=== PATIENT | male | born 1950 | race Caucasian/White ===

== ENCOUNTER 2017-11-09 11:13 | Emergency (ER) | payer MEDICARE, MEDICAID ==
[~2017-11-09] VITALS: Ht 185.4 cm; Wt 90.0 kg
[2017-11-09 11:18] VITALS: BP 102/55
[2017-11-09] MEDS ORDERED: IBUP-1984 PO (12:30)
== END 2017-11-09 12:36 | disposition home or self-care (01) ==
LOC: ER 11:14
DX: M25.512 Pain in left shoulder (principal)
CPT/HCPCS: 73000; 99284; A4565

== ENCOUNTER 2021-06-08 15:33 | Emergency (ER) | payer MEDICARE, MEDICAID ==
[~2021-06-08] VITALS: Ht 182.9 cm; Wt 75.0 kg
[2021-06-08 16:20] VITALS: BP 92/62
[2021-06-08] MEDS ORDERED: HYDROcodone/acetaminophen 10/325mg tab PO ONE (16:25)
[2021-06-08 17:02] LABS: BASOPHILS # (AUTO) 0.1 X10'3 (0-0.2); EOSINOPHILS # (AUTO) 0.2 X10'3 (0-0.9); EOSINOPHILS % (AUTO) 1.1 % (0-6); HEMOGLOBIN 12.3 g/dl (14.0-17.9); MONOCYTES # (AUTO) 1.7 X10'3 (0-0.9); RED CELL DISTRIBUTION WIDTH 14.7 % (11.5-14.5)
[2021-06-08 17:04] LABS: BASOPHILS % (AUTO) 0.4 % (0-1); LYMPHOCYTES # (AUTO) 2.1 X10'3 (1.1-4.8); LYMPHOCYTES % (AUTO) 12.3 % (21-51); MEAN CORPUSCULAR HEMOGLOBIN 29.9 PG (27.0-31.0); MEAN CORPUSCULAR HGB CONC 33.2 g/dL (33.0-36.5); MEAN CORPUSCULAR VOLUME 90.1 FL (78-98); MEAN PLATELET VOLUME 6.8 FL (7.4-10.4); MONOCYTES % (AUTO) 10.1 % (2-12); NEUTROPHILS # (AUTO) 12.9 X10'3 (1.8-7.7); NEUTROPHILS % (AUTO) 76.1 % (42-75); PLATELET COUNT 571 X10'3 (140-440); RED BLOOD COUNT 4.11 X10'6 (4.70-6.10); WHITE BLOOD COUNT 16.9 X10'3 (4.5-11.0)
[2021-06-08 17:12] LABS: ALANINE AMINOTRANSFERASE 53 U/L (12-78); ALBUMIN 3.4 G/DL (3.4-5.0); ALBUMIN/GLOBULIN RATIO 0.7 (1.1-1.5); ALKALINE PHOSPHATASE 97 IU/L (46-116); ANION GAP 14 (8-16); ASPARTATE AMINO TRANSFERASE 17 U/L (10-37); BILIRUBIN,TOTAL 0.3 MG/DL (0.1-1.0); BLOOD UREA NITROGEN 16 MG/DL (7-18); BUN/CREATININE RATIO 11.3 (5.4-32.0); CALCIUM 9.5 MG/DL (8.5-10.1); CHLORIDE 97 MMOL/L (99-107); CREATININE 1.42 MG/DL (0.60-1.10); GLUCOSE 118 MG/DL (70-104); POTASSIUM 3.9 MMOL/L (3.5-5.1); SODIUM 135 MMOL/L (135-145); TOTAL CARBON DIOXIDE 23.8 MMOL/L (24-32); eGFR 49 ML/MIN
[2021-06-08] MEDS ORDERED: cefepime 2g/NS 100ml ADVANTAGE 100 ML IV STA (17:27)
[2021-06-08] MEDS ORDERED: normal saline 1000ML IV soln IV ONE (17:30)
[2021-06-08] MEDS ORDERED: vancomycin/NS 1 GM ADD-VANTAGE 250 ML IV ONE (17:30)
--- NOTE | 2021-06-08 17:38 | NUR ---
PHONE CALL TO PATIENT WHO LEFT LOBBY WITHOUT BEING SEEN.
== END 2021-06-08 17:41 | disposition left against medical advice (07) ==
LOC: ER 15:33
DX: S89.92XA Unspecified injury of left lower leg, initial encounter (principal); A41.9 Sepsis, unspecified organism; Z88.0 Allergy status to penicillin; X58.XXXA Exposure to other specified factors, initial encounter; Y93.89 Activity, other specified; Y92.89 Other specified places as the place of occurrence of the external cause; Y99.8 Other external cause status
CPT/HCPCS: 36415; 80053; 83605; 84145; 85025; 85651; 86140; 87040; 93005; 99284

== ENCOUNTER 2021-07-10 14:05 | Inpatient (IN) | payer BC, MEDICAID ==
[~2021-07-10] VITALS: Ht 182.9 cm; Wt 88.6 kg
[2021-07-10] MEDS ORDERED: normal saline 1000ML IV soln IVB ONE ×3 (14:15→18:20)
[2021-07-10] MEDS ORDERED: diltiazem 5mg/ml 5ml inj. IV ONE ×2 (14:25→15:50)
--- NOTE | 2021-07-10 14:30 | NUR ---
non-behavioral restraints place on pt bilat wrists. dr. garcias aware. additional order for 5mg IM ordered.
--- NOTE | 2021-07-10 14:30 | NUR ---
pt re-oriented to ed multiple times, pt pulling at iv lines/monitor cords and revealing genitalia repeatedly. pt straight cath'd with help of multiple techs and RN. second IV placed. verbal order received for non-behavioral restraints.
[2021-07-10 14:32] LABS: BASOPHILS # (AUTO) 0.1 X10'3 (0-0.2); BASOPHILS % (AUTO) 0.6 % (0-1); EOSINOPHILS # (AUTO) 0.2 X10'3 (0-0.9); EOSINOPHILS % (AUTO) 1.3 % (0-6); HEMATOCRIT 33.5 % (42.0-52.0); HEMOGLOBIN 10.9 g/dl (14.0-17.9); LYMPHOCYTES # (AUTO) 1.9 X10'3 (1.1-4.8); LYMPHOCYTES % (AUTO) 12.4 % (21-51); MEAN CORPUSCULAR HGB CONC 32.4 g/dL (33.0-36.5); MEAN CORPUSCULAR VOLUME 89.4 FL (78-98); MEAN PLATELET VOLUME 7.7 FL (7.4-10.4); MONOCYTES # (AUTO) 1.1 X10'3 (0-0.9); MONOCYTES % (AUTO) 7.2 % (2-12); NEUTROPHILS # (AUTO) 11.9 X10'3 (1.8-7.7); NEUTROPHILS % (AUTO) 78.5 % (42-75); PLATELET COUNT 267 X10'3 (140-440); RED BLOOD COUNT 3.75 X10'6 (4.70-6.10); RED CELL DISTRIBUTION WIDTH 14.9 % (11.5-14.5); WHITE BLOOD COUNT 15.2 X10'3 (4.5-11.0)
[2021-07-10] MEDS ORDERED: haloperidol lactate 5mg/ml inj IM ONE ×2 (14:45→19:30)
[2021-07-10 14:47] LABS: ALANINE AMINOTRANSFERASE 13 U/L (12-78); ALBUMIN 3.2 G/DL (3.4-5.0); ALKALINE PHOSPHATASE 106 IU/L (46-116); ANION GAP 15 (8-16); ASPARTATE AMINO TRANSFERASE 16 U/L (10-37); BILIRUBIN,TOTAL 0.3 MG/DL (0.1-1.0); BLOOD UREA NITROGEN 14 MG/DL (7-18); BUN/CREATININE RATIO 16.1 (5.4-32.0); CALCIUM 8.8 MG/DL (8.5-10.1); CHLORIDE 105 MMOL/L (99-107); CREATININE 0.87 MG/DL (0.60-1.10); GLUCOSE 89 MG/DL (70-104); POTASSIUM 3.5 MMOL/L (3.5-5.1); SODIUM 145 MMOL/L (135-145); TOTAL CARBON DIOXIDE 24.6 MMOL/L (24-32); TOTAL PROTEIN 6.5 G/DL (6.4-8.2); eGFR 87 ML/MIN
[2021-07-10 14:55] LABS: ETHANOL < 0.010 GM/DL (0.0-0.010)
[2021-07-10] MEDS: diltiazem-NS 100mg/100ml 100 ML IV SCH ×2 (14:59→21:17)
[2021-07-10 15:15] LABS: CLARITY,URINE CLEAR (Clear); COLOR,URINE YELLOW (Yellow); GLUCOSE, URINE NEGATIVE (Neg); KETONES,URINE TRACE mg/dl (Neg); LEUKOCYTE ESTERASE ,URINE NEGATIVE (Neg); NITRITES, URINE NEGATIVE (Neg); OCCULT BLOOD,URINE NEGATIVE (Neg); PROTEIN,URINE NEGATIVE (Neg); UROBILINOGEN,URINE 0.2 E.U/dL (0.2-1.0)
[2021-07-10 15:21] LABS: UA COLLECTION TYPE STRAIGHT CATH
[2021-07-10 15:41] LABS: URINE AMPHETAMINE SCREEN NEGATIVE (Neg); URINE BARBITUATE SCREEN POSITIVE (Neg); URINE BENZODIAZEPINES SCREEN NEGATIVE (Neg); URINE CANNABINOID SCREEN POSITIVE (Neg); URINE COCAINE SCREEN NEGATIVE (Neg); URINE METHADONE SCREEN NEGATIVE (Neg); URINE OPIATE SCREEN NEGATIVE (Neg); URINE PHENCYCLIDINE SCREEN NEGATIVE (Neg)
[2021-07-10] MEDS ORDERED: azithromycin/NS 500mg/250ml 250 ML IV STA (16:04)
[2021-07-10] MEDS ORDERED: CefTRIAXone 2gm/D5W 50ml BAG 50 ML IV ONE (16:05)
--- NOTE | 2021-07-10 16:05 | NUR ---
pt had large bm in bed, complete linen change provided. pt tolerated turn well. r foream piv self removed during cleaning, cath fully intact. second piv placed in right forearm.
[2021-07-10] MEDS ORDERED: levoFLOXACIN-Levaquin 500mg/D5 100 ML IV ONE (16:20)
[2021-07-10 16:24] LABS: D-DIMER 0.95 MG/L FEU (0-0.50)
[2021-07-10] MEDS ORDERED: phenobarbital inj 500 MG in normal saline 250ml IV soln 250 ML IV ONE (17:05)
[2021-07-10] MEDS ORDERED: enoxaparin 100mg/ml syringe SUBCUT ONE (17:45)
[2021-07-10] MEDS ORDERED: magnesium 2GM in 50ml NS 50 ML IV ONE (17:50)
[2021-07-10 18:12] LABS: MAGNESIUM 1.2 MG/DL (1.5-2.4); VALPROATE 60 UG/ML (50-100)
--- NOTE | 2021-07-10 19:10 | NUR ---
PT TO CT @[id number].
--- NOTE | 2021-07-10 19:13 | NUR ---
PT WAS UNABLE TO OBTAIN CT R/T BEING TOO AWAKE AND UNCOOPERATIVE. CT WILL TRY AGAIN LATER TONIGHT.
--- NOTE | 2021-07-10 19:40 | NUR ---
PT PHENOBARBITOL RAN OUT, CONSULTED WITH DR. TAVERAS REGARDING PT STILL NOT RELAXED. PT UNABLE TO FOLLOW COMMANDS AND STILL NEEDS CT SCAN PERFORMED. DR. TAVERAS TO ORDER HALDOL 10MG IM.
--- NOTE | 2021-07-10 20:02 | NUR ---
PT CLEANED UP AND CLEAN BREAF APPLIED, REPOSITIONED, TWO POINT RESTRAINTS CHECKED, CSM INTACT, WARM BLANKETS GIVEN
[2021-07-10] MEDS ORDERED: diphenhydrAMINE 50 mg/ml inj IV ONE (20:20)
[2021-07-10] MEDS ORDERED: magnesium Cl slow-release 64mg tablet PO PRN (20:50)
[2021-07-10] MEDS ORDERED: ondansetron/PF 4mg/2ml inj IV PRN (20:50)
[2021-07-10] MEDS ORDERED: potassium Cl 20 mEq SR tablet PO PRN (20:50)
[2021-07-10] MEDS ORDERED: magnesium hydroxide 30ml (MOM) UD suspension PO PRN (20:50)
[2021-07-10] MEDS ORDERED: magnesium 4gm in 100ml NS 100 ML IV PRN (20:50)
[2021-07-10] MEDS ORDERED: mag hydrox/Alum hydrox/simeth 30ml oral suspension PO PRN (20:50)
[2021-07-10] MEDS ORDERED: potassium CL 10mEq/100ml bag 100 ML IV PRN (20:50)
[2021-07-10] MEDS ORDERED: magnesium 2GM in 50ml NS 50 ML IV PRN (20:50)
[2021-07-10] MEDS ORDERED: acetaminophen 325mg tablet PO PRN ×2 (20:50)
[2021-07-10] MEDS ORDERED: temazepam 15mg capsule PO PRN (21:00)
--- NOTE | 2021-07-10 21:08 | NUR ---
pt to ct and able to get completed
[2021-07-10] MEDS: normal saline 1000ml 1,000 ML IV SCH (21:12)
[2021-07-10] MEDS ORDERED: primidone 50mg tablet PO SCH (21:15)
--- NOTE | 2021-07-10 21:28 | NUR ---
pt found to be in sinus rythm. dr kennedy dc'd daniella
--- NOTE | 2021-07-10 21:30 | NUR ---
DR. SILVA VERBALIZED OKAY TO HERN[facility]N CISNEROS AT THIS TIME
[2021-07-10] MEDS ORDERED: iohexol 350MG/ML 100ml bottle IV ONE (22:11)
[2021-07-10] MEDS ORDERED: PANT40TA54 PO (22:16)
[2021-07-10] MEDS ORDERED: IRON150C8 PO (22:16)
[2021-07-10] MEDS ORDERED: HYDR-3964 PO (22:16)
[2021-07-10] MEDS ORDERED: ROSU10TA28 PO (22:16)
[2021-07-10] MEDS ORDERED: SENN-263 PO (22:16)
[2021-07-10] MEDS ORDERED: DIVA-51 PO (22:16)
[2021-07-10] MEDS ORDERED: DOCU250C34 PO (22:16)
[2021-07-10] MEDS ORDERED: ASPI-1397 PO (22:16)
[2021-07-10] MEDS ORDERED: PRIM50TA5 PO (22:16)
[2021-07-10] MEDS ORDERED: GABA-530 PO (22:16)
[2021-07-10] MEDS ORDERED: THIA100T66 PO (22:16)
[2021-07-10] MEDS ORDERED: COLL30OI TOP (22:16)
[2021-07-10] MEDS ORDERED: ZINC50TA15 PO (22:16)
[2021-07-10] MEDS ORDERED: ASCO500T20 PO (22:16)
[2021-07-10] MEDS ORDERED: BACL10TA2 PO (22:16)
[2021-07-10] MEDS ORDERED: FLO0.4C PO (22:17)
[2021-07-10] MEDS ORDERED: METO25TA6 PO (22:17)
[2021-07-10] MEDS ORDERED: QUET25TA36 PO (22:17)
[2021-07-10] MEDS ORDERED: FOLI0.4T14 PO (22:17)
[2021-07-10] MEDS ORDERED: CHOL100017 PO (22:17)
[2021-07-10] MEDS: divalproex 250mg tablet, delayed-release PO SCH (23:07)
[2021-07-10] MEDS: gabapentin 100mg capsule PO SCH (23:08)
[2021-07-10] MEDS: folic acid 1mg tablet PO SCH (23:08)
[2021-07-10] MEDS: QUEtiapine 25mg tablet PO SCH (23:09)
[2021-07-10] MEDS ORDERED: haloperidol decanoate***LONG-ACTING*** 100mg/ml **IM only** inj. IM ONE (23:15)
[2021-07-10] MEDS ORDERED: morphine 2 MG/ML inj. syringe IV PRN (23:20)
[2021-07-10] MEDS: morphine 2 MG/ML inj. syringe IV PRN (23:52)
--- NOTE | 2021-07-11 00:01 | NUR ---
pt agitated, pulling on lines and yelling. dr. vargas to order medication for sedation. pt unable to follow directions for po medications
--- NOTE | 2021-07-11 02:14 | NUR ---
Note lucy in EDM - 07/11/21 at 0216 by CARLOS PT AGITATED AGAIN, ATTEMPTING TO PULL ON LINES AND HIS GENITALS, YELLING AT STAFF AND SCREAMING FOR A DOCTOR. PT SATURATED LINENS WITH URINE FROM PULLING ON BRIEF. PT GIVEN FULL LINEN CHANGE, CLEAN BRIEF AND REPOSITIONED. PT CSM INTACT IN DISTALL EXTREMITIES OF RESTRAINTS.
--- NOTE | 2021-07-11 02:20 | NUR ---
PT AGITATED AGAIN, ATTEMPTING TO PULL ON LINES AND HIS GENITALS, YELLING AT STAFF AND SCREAMING FOR A DOCTOR. PT SATURATED LINENS WITH URINE FROM PULLING ON BRIEF. PT GIVEN FULL LINEN CHANGE, CLEAN BRIEF AND REPOSITIONED. PT CSM INTACT IN DISTALL EXTREMITIES OF RESTRAINTS.
[2021-07-11] MEDS: morphine 2 MG/ML inj. syringe IV PRN (02:29)
--- NOTE | 2021-07-11 02:30 | NUR ---
dr vargas states to medicate for sedation with morphine
--- NOTE | 2021-07-11 06:30 | NUR ---
Assumed care of patient. Patient resting quietly; no apparent distress. Soft non-violent restraints in place.
[2021-07-11 07:40] LABS: BASOPHILS % (AUTO) 0.3 % (0-1); EOSINOPHILS # (AUTO) 0.1 X10'3 (0-0.9); EOSINOPHILS % (AUTO) 0.5 % (0-6); HEMATOCRIT 31.7 % (42.0-52.0); HEMOGLOBIN 10.7 g/dl (14.0-17.9); LYMPHOCYTES # (AUTO) 1.5 X10'3 (1.1-4.8); LYMPHOCYTES % (AUTO) 14.9 % (21-51); MEAN CORPUSCULAR HEMOGLOBIN 30.2 PG (27.0-31.0); MEAN CORPUSCULAR HGB CONC 33.8 g/dL (33.0-36.5); MEAN CORPUSCULAR VOLUME 89.3 FL (78-98); MEAN PLATELET VOLUME 7.8 FL (7.4-10.4); MONOCYTES # (AUTO) 0.9 X10'3 (0-0.9); MONOCYTES % (AUTO) 9.1 % (2-12); NEUTROPHILS # (AUTO) 7.5 X10'3 (1.8-7.7); NEUTROPHILS % (AUTO) 75.2 % (42-75); PLATELET COUNT 230 X10'3 (140-440); RED BLOOD COUNT 3.55 X10'6 (4.70-6.10); RED CELL DISTRIBUTION WIDTH 15.6 % (11.5-14.5)
--- NOTE | 2021-07-11 07:55 | NUR ---
Patient awake and calm. Patient denies pain or needs at this time; given blanket.
[2021-07-11] MEDS ORDERED: CefTRIAXone 2gm/D5W 50ml BAG 50 ML IV SCH (08:00)
[2021-07-11 08:14] LABS: ALANINE AMINOTRANSFERASE 18 U/L (12-78); ALBUMIN 2.9 G/DL (3.4-5.0); ALBUMIN/GLOBULIN RATIO 0.9 (1.1-1.5); ALKALINE PHOSPHATASE 96 IU/L (46-116); ANION GAP 13 (8-16); ASPARTATE AMINO TRANSFERASE 27 U/L (10-37); BILIRUBIN,TOTAL 0.3 MG/DL (0.1-1.0); BLOOD UREA NITROGEN 9 MG/DL (7-18); BUN/CREATININE RATIO 12.5 (5.4-32.0); CALCIUM 8.5 MG/DL (8.5-10.1); CHLORIDE 109 MMOL/L (99-107); CREATININE 0.72 MG/DL (0.60-1.10); GLUCOSE 102 MG/DL (70-104); SODIUM 145 MMOL/L (135-145); TOTAL CARBON DIOXIDE 22.7 MMOL/L (24-32); TOTAL PROTEIN 6.3 G/DL (6.4-8.2); eGFR > 90 ML/MIN
[2021-07-11 08:16] LABS: POTASSIUM 2.8 MMOL/L (3.5-5.1)
[2021-07-11] MEDS: K and/or MAG REPLACEMENT MC SCH ×2 (08:19→20:00)
--- NOTE | 2021-07-11 08:24 | NUR ---
Paged hospitalist, Dr. Lee, for diet order.
[2021-07-11] MEDS: metoprolol succinate 25mg (24-HOUR) SR. Tablet PO SCH (09:29)
[2021-07-11] MEDS: levoFLOXACIN-Levaquin 500mg/D5 100 ML IV SCH (09:29)
[2021-07-11] MEDS: gabapentin 100mg capsule PO SCH ×3 (09:30→20:31)
[2021-07-11] MEDS: thiamine 100mg tablet PO SCH (09:30)
[2021-07-11] MEDS: tamsulosin 0.4mg capsule PO SCH (09:30)
[2021-07-11] MEDS: folic acid 1mg tablet PO SCH (09:30)
[2021-07-11] MEDS: pantoprazole 40mg Tablet.DR PO SCH (09:30)
[2021-07-11] MEDS: aspirin 81mg, enteric-coated 1 TAB TABLET.DR PO SCH (09:31)
[2021-07-11] MEDS: heparin, porcine 5000 units/ml vial SQ SCH ×2 (09:36→20:31)
[2021-07-11] MEDS: potassium Cl 20 mEq SR tablet PO PRN ×2 (09:41→19:10)
[2021-07-11] MEDS: primidone 50mg tablet PO SCH (09:42)
[2021-07-11] MEDS: divalproex 250mg tablet, delayed-release PO SCH ×2 (09:42→20:31)
[2021-07-11] MEDS: iron polysaccharide complex 150mg capsule PO SCH (10:18)
--- NOTE | 2021-07-11 10:20 | NUR ---
Removal of right wrist, soft, non-violent restraint.
--- NOTE | 2021-07-11 10:32 | NUR ---
Patient changed of urinary incontinence; bedding and patient gown changed. Deep decubitus ulcer approximately 2 cm in diameter noted over coccyx; admitting provider at bedside noted ulcer.
--- NOTE | 2021-07-11 11:00 | NUR ---
Patient removed personnel monitor pads; pads replaced with cardiac monitoring.
--- NOTE | 2021-07-11 11:30 | NUR ---
Patient continues to take bus driver/monitor pads off of chest.
[2021-07-11] MEDS: normal saline 1000ml 1,000 ML IV SCH ×2 (13:52→17:31)
[2021-07-11] MEDS: QUEtiapine 25mg tablet PO SCH (20:38)
--- NOTE | 2021-07-11 22:33 | NUR ---
PRIOR TO MEDICATION ADMIN AT 1999 I DID A SWALLOW STUDY. PT PASSED THE SWALLOW TEST AND SUCCESSFULLY TOOK HIS MEDICATIONS WITHOUT ANY COUGHING OR POCKETING OF MEDS INCLUDING HIS K-DUR IF YOU BREAK THEM IN HALF AND GIVE INDIVIDUALLY.
--- NOTE | 2021-07-11 22:36 | NUR ---
URINARY INCONTINENCE STILL AN ONGOING ISSUE. CLEANED THE PATIENT AND CHANGED THE BEDDING.
[2021-07-11 23:00] VITALS: BP 115/49
[2021-07-12 02:00] VITALS: BP 112/51
[2021-07-12] MEDS: normal saline 1000ml 1,000 ML IV SCH ×3 (04:12→23:36)
[2021-07-12 05:00] VITALS: BP 109/51
[2021-07-12 06:52] LABS: BASOPHILS % (AUTO) 0.7 % (0-1); EOSINOPHILS # (AUTO) 0.2 X10'3 (0-0.9); HEMATOCRIT 29.2 % (42.0-52.0); HEMOGLOBIN 9.7 g/dl (14.0-17.9); LYMPHOCYTES # (AUTO) 1.8 X10'3 (1.1-4.8); LYMPHOCYTES % (AUTO) 26.7 % (21-51); MEAN CORPUSCULAR HEMOGLOBIN 30.1 PG (27.0-31.0); MEAN CORPUSCULAR HGB CONC 33.2 g/dL (33.0-36.5); MEAN CORPUSCULAR VOLUME 90.7 FL (78-98); MEAN PLATELET VOLUME 7.5 FL (7.4-10.4); MONOCYTES # (AUTO) 0.8 X10'3 (0-0.9); MONOCYTES % (AUTO) 11.2 % (2-12); NEUTROPHILS # (AUTO) 3.9 X10'3 (1.8-7.7); NEUTROPHILS % (AUTO) 58.4 % (42-75); PLATELET COUNT 176 X10'3 (140-440); RED BLOOD COUNT 3.22 X10'6 (4.70-6.10); RED CELL DISTRIBUTION WIDTH 15.8 % (11.5-14.5); WHITE BLOOD COUNT 6.7 X10'3 (4.5-11.0)
[2021-07-12 07:23] LABS: ALANINE AMINOTRANSFERASE 8 U/L (12-78); ALBUMIN 2.3 G/DL (3.4-5.0); ALBUMIN/GLOBULIN RATIO 0.8 (1.1-1.5); ALKALINE PHOSPHATASE 75 IU/L (46-116); ANION GAP 9 (8-16); ASPARTATE AMINO TRANSFERASE 18 U/L (10-37); BILIRUBIN,TOTAL 0.3 MG/DL (0.1-1.0); BLOOD UREA NITROGEN 6 MG/DL (7-18); BUN/CREATININE RATIO 9.5 (5.4-32.0); CALCIUM 8.6 MG/DL (8.5-10.1); CHLORIDE 113 MMOL/L (99-107); CREATININE 0.63 MG/DL (0.60-1.10); GLUCOSE 78 MG/DL (70-104); POTASSIUM 3.7 MMOL/L (3.5-5.1); SODIUM 145 MMOL/L (135-145); TOTAL CARBON DIOXIDE 23.4 MMOL/L (24-32); TOTAL PROTEIN 5.2 G/DL (6.4-8.2); eGFR > 90 ML/MIN
--- NOTE | 2021-07-12 07:43 | NUR ---
PAGER ID: [phone] MESSAGE: [id number]. Patient is NPO, but has scheduled Depakote this AM. Did you want to order IV seizure medication? Bonita KUMAR [phone]
[2021-07-12] MEDS: tamsulosin 0.4mg capsule PO SCH (08:00)
[2021-07-12] MEDS: K and/or MAG REPLACEMENT MC SCH ×2 (08:00→20:00)
[2021-07-12] MEDS: HYDROcodone/acetaminophen 5mg/325mg tablet PO PRN ×2 (08:54→19:33)
[2021-07-12] MEDS: metoprolol succinate 25mg (24-HOUR) SR. Tablet PO SCH (08:54)
[2021-07-12] MEDS: aspirin 81mg, enteric-coated 1 TAB TABLET.DR PO SCH (08:56)
[2021-07-12] MEDS: iron polysaccharide complex 150mg capsule PO SCH (08:56)
[2021-07-12] MEDS: divalproex 250mg tablet, delayed-release PO SCH ×2 (08:56→19:32)
[2021-07-12] MEDS: thiamine 100mg tablet PO SCH (08:56)
[2021-07-12] MEDS: pantoprazole 40mg Tablet.DR PO SCH (08:56)
[2021-07-12] MEDS: folic acid 1mg tablet PO SCH (08:56)
[2021-07-12] MEDS: gabapentin 100mg capsule PO SCH ×3 (08:56→19:33)
[2021-07-12] MEDS: heparin, porcine 5000 units/ml vial SQ SCH ×2 (08:57→19:32)
[2021-07-12] MEDS: levoFLOXACIN-Levaquin 500mg/D5 100 ML IV SCH (08:58)
[2021-07-12 10:00] VITALS: BP 101/44
[2021-07-12 14:00] VITALS: BP 99/52
[2021-07-12] MEDS: primidone 50mg tablet PO SCH (14:57)
[2021-07-12] MEDS: morphine 2 MG/ML inj. syringe IV PRN (14:58)
--- NOTE | 2021-07-12 17:32 | NUR ---
Patient is refusing to be have heels lifted off of bed despite education on pressure injuries. Wound care team called for wound evaluation, message left, no call back.
--- NOTE | 2021-07-12 18:33 | NUR ---
Problems reprioritized. Patient report given, questions answered & plan of care reviewed with Lien KUMAR.
[2021-07-12] MEDS: QUEtiapine 25mg tablet PO SCH (19:32)
[2021-07-12 22:00] VITALS: BP 112/46
[2021-07-13] MEDS: HYDROcodone/acetaminophen 5mg/325mg tablet PO PRN ×2 (03:57→10:59)
[2021-07-13 06:00] VITALS: BP 102/61
[2021-07-13 07:12] LABS: BASOPHILS % (AUTO) 0.6 % (0-1); EOSINOPHILS # (AUTO) 0.2 X10'3 (0-0.9); EOSINOPHILS % (AUTO) 4.6 % (0-6); HEMATOCRIT 26.8 % (42.0-52.0); HEMOGLOBIN 8.9 g/dl (14.0-17.9); LYMPHOCYTES # (AUTO) 1.6 X10'3 (1.1-4.8); MEAN CORPUSCULAR HEMOGLOBIN 30.3 PG (27.0-31.0); MEAN CORPUSCULAR HGB CONC 33.3 g/dL (33.0-36.5); MEAN CORPUSCULAR VOLUME 90.9 FL (78-98); MEAN PLATELET VOLUME 7.9 FL (7.4-10.4); MONOCYTES # (AUTO) 0.3 X10'3 (0-0.9); MONOCYTES % (AUTO) 6.4 % (2-12); NEUTROPHILS # (AUTO) 3.2 X10'3 (1.8-7.7); NEUTROPHILS % (AUTO) 58.4 % (42-75); PLATELET COUNT 186 X10'3 (140-440); RED BLOOD COUNT 2.95 X10'6 (4.70-6.10); RED CELL DISTRIBUTION WIDTH 16.2 % (11.5-14.5); WHITE BLOOD COUNT 5.4 X10'3 (4.5-11.0)
[2021-07-13 07:37] LABS: ALANINE AMINOTRANSFERASE 11 U/L (12-78); ALBUMIN 2.2 G/DL (3.4-5.0); ALBUMIN/GLOBULIN RATIO 0.7 (1.1-1.5); ALKALINE PHOSPHATASE 70 IU/L (46-116); ANION GAP 11 (8-16); ASPARTATE AMINO TRANSFERASE 31 U/L (10-37); BILIRUBIN,TOTAL 0.2 MG/DL (0.1-1.0); BLOOD UREA NITROGEN 12 MG/DL (7-18); BUN/CREATININE RATIO 17.9 (5.4-32.0); CALCIUM 8.4 MG/DL (8.5-10.1); CHLORIDE 111 MMOL/L (99-107); CREATININE 0.67 MG/DL (0.60-1.10); GLUCOSE 78 MG/DL (70-104); SODIUM 143 MMOL/L (135-145); TOTAL PROTEIN 5.2 G/DL (6.4-8.2); eGFR > 90 ML/MIN
[2021-07-13 07:38] LABS: POTASSIUM 3.8 MMOL/L (3.5-5.1)
[2021-07-13] MEDS: K and/or MAG REPLACEMENT MC SCH ×2 (08:00→20:00)
[2021-07-13] MEDS: levoFLOXACIN-Levaquin 500mg/D5 100 ML IV SCH (08:16)
[2021-07-13] MEDS: heparin, porcine 5000 units/ml vial SQ SCH ×2 (08:17→20:23)
[2021-07-13] MEDS: gabapentin 100mg capsule PO SCH ×3 (08:18→20:21)
[2021-07-13] MEDS: primidone 50mg tablet PO SCH (08:18)
[2021-07-13] MEDS: thiamine 100mg tablet PO SCH (08:18)
[2021-07-13] MEDS: pantoprazole 40mg Tablet.DR PO SCH (08:18)
[2021-07-13] MEDS: tamsulosin 0.4mg capsule PO SCH (08:18)
[2021-07-13] MEDS: iron polysaccharide complex 150mg capsule PO SCH (08:18)
[2021-07-13] MEDS: divalproex 250mg tablet, delayed-release PO SCH ×2 (08:19→20:21)
[2021-07-13] MEDS: aspirin 81mg, enteric-coated 1 TAB TABLET.DR PO SCH (08:19)
[2021-07-13] MEDS: metoprolol succinate 25mg (24-HOUR) SR. Tablet PO SCH (08:19)
[2021-07-13] MEDS: folic acid 1mg tablet PO SCH (08:19)
[2021-07-13] MEDS: normal saline 1000ml 1,000 ML IV SCH ×2 (08:50→20:26)
[2021-07-13 10:00] VITALS: BP 112/64
[2021-07-13] MEDS: HYDROcodone/acetaminophen 10/325mg tab PO PRN ×3 (12:59→21:23)
[2021-07-13 14:00] VITALS: BP 112/44
[2021-07-13 18:15] VITALS: BP 127/54
--- NOTE | 2021-07-13 18:15 | NUR ---
Patient in room MED 315. I have received report from STACY FORTUNE and had the opportunity to ask questions and assume patient care. PT SITTING UP IN BED, REFUSES TO TURN, STATES PAIN 04/17, BUT TOLERABLE AFTER NORCO. NO OTHER MEDICATION REQUESTED. Addendum: 07/13/21 at 1841 by Margarita Stanford RN Amended: Links added.
[2021-07-13] MEDS: QUEtiapine 25mg tablet PO SCH (20:22)
[2021-07-13] MEDS: morphine 2 MG/ML inj. syringe IV PRN (20:23)
[2021-07-13 22:00] VITALS: BP 114/62
--- NOTE | 2021-07-14 01:00 | NUR ---
SHAILA ROSADO. REFUSING TO TURN WITH NURSING. Addendum: 07/14/21 at 0243 by Margarita Stanford RN Amended: Links added.
[2021-07-14] MEDS: HYDROcodone/acetaminophen 10/325mg tab PO PRN ×6 (01:09→20:34)
[2021-07-14 02:00] VITALS: BP 143/65
[2021-07-14] MEDS: morphine 2 MG/ML inj. syringe IV PRN (02:15)
[2021-07-14] MEDS: normal saline 1000ml 1,000 ML IV SCH ×2 (05:04→14:53)
[2021-07-14 06:10] VITALS: BP 129/53
--- NOTE | 2021-07-14 06:33 | NUR ---
Problems reprioritized. Patient report given, questions answered & plan of care reviewed with STACY Whittaker. Addendum: 07/14/21 at 0633 by Margarita Stanford RN Amended: Links added.
[2021-07-14 06:44] LABS: BASOPHILS % (AUTO) 0.8 % (0-1); EOSINOPHILS # (AUTO) 0.2 X10'3 (0-0.9); EOSINOPHILS % (AUTO) 3.9 % (0-6); HEMATOCRIT 25.9 % (42.0-52.0); HEMOGLOBIN 8.7 g/dl (14.0-17.9); LYMPHOCYTES # (AUTO) 1.6 X10'3 (1.1-4.8); LYMPHOCYTES % (AUTO) 30.2 % (21-51); MEAN CORPUSCULAR HEMOGLOBIN 30.1 PG (27.0-31.0); MEAN CORPUSCULAR HGB CONC 33.5 g/dL (33.0-36.5); MEAN PLATELET VOLUME 7.4 FL (7.4-10.4); MONOCYTES # (AUTO) 0.4 X10'3 (0-0.9); MONOCYTES % (AUTO) 8.3 % (2-12); NEUTROPHILS # (AUTO) 3.1 X10'3 (1.8-7.7); NEUTROPHILS % (AUTO) 56.8 % (42-75); PLATELET COUNT 203 X10'3 (140-440); RED BLOOD COUNT 2.88 X10'6 (4.70-6.10); RED CELL DISTRIBUTION WIDTH 16.2 % (11.5-14.5); WHITE BLOOD COUNT 5.4 X10'3 (4.5-11.0)
[2021-07-14 07:06] LABS: ALANINE AMINOTRANSFERASE 18 U/L (12-78); ALBUMIN 2.1 G/DL (3.4-5.0); ALBUMIN/GLOBULIN RATIO 0.8 (1.1-1.5); ALKALINE PHOSPHATASE 65 IU/L (46-116); ANION GAP 7 (8-16); ASPARTATE AMINO TRANSFERASE 22 U/L (10-37); BILIRUBIN,TOTAL 0.2 MG/DL (0.1-1.0); BLOOD UREA NITROGEN 12 MG/DL (7-18); BUN/CREATININE RATIO 15.4 (5.4-32.0); CHLORIDE 110 MMOL/L (99-107); CREATININE 0.78 MG/DL (0.60-1.10); GLUCOSE 94 MG/DL (70-104); POTASSIUM 3.4 MMOL/L (3.5-5.1); SODIUM 143 MMOL/L (135-145); TOTAL CARBON DIOXIDE 25.8 MMOL/L (24-32); TOTAL PROTEIN 4.9 G/DL (6.4-8.2); eGFR > 90 ML/MIN
[2021-07-14] MEDS: folic acid 1mg tablet PO SCH (08:06)
[2021-07-14] MEDS: tamsulosin 0.4mg capsule PO SCH (08:06)
[2021-07-14] MEDS: gabapentin 100mg capsule PO SCH ×3 (08:06→20:32)
[2021-07-14] MEDS: thiamine 100mg tablet PO SCH (08:06)
[2021-07-14] MEDS: metoprolol succinate 25mg (24-HOUR) SR. Tablet PO SCH (08:07)
[2021-07-14] MEDS: divalproex 250mg tablet, delayed-release PO SCH ×2 (08:07→20:32)
[2021-07-14] MEDS: primidone 50mg tablet PO SCH (08:07)
[2021-07-14] MEDS: aspirin 81mg, enteric-coated 1 TAB TABLET.DR PO SCH (08:07)
[2021-07-14] MEDS: iron polysaccharide complex 150mg capsule PO SCH (08:07)
[2021-07-14] MEDS: pantoprazole 40mg Tablet.DR PO SCH (08:07)
[2021-07-14] MEDS: levoFLOXACIN-Levaquin 500mg/D5 100 ML IV SCH (08:08)
[2021-07-14] MEDS: K and/or MAG REPLACEMENT MC SCH ×2 (08:08→20:00)
[2021-07-14] MEDS: heparin, porcine 5000 units/ml vial SQ SCH ×2 (08:08→20:33)
--- NOTE | 2021-07-14 09:33 | NUR ---
Initial: Pt admitted w/ ALOC, possible aspiration PNA, and encephalopathy per EMR. Pt currently on MM5 diet per PALLIATIVE SENIOR NP recs and eating well, mostly 100% of meals meeting est nutrient needs at this time. 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 Pt may benefit from Alexandre smoothies BID to assist w/ wound healing needs. LBM /. Will continue to monitor and make recommendations as appropriate. Recs: 1. Continue MM5/Regular diet; texture per PALLIATIVE SENIOR NP 2. Alexandre smoothies BIDBD, pending MD verification 3. Bowel care per rx 4. Scaled wts Addendum: 07/14/21 at [address] Amended: Links added.
[2021-07-14 10:00] VITALS: BP 111/81
[2021-07-14 14:00] VITALS: BP 146/69
[2021-07-14] MEDS: JUVEN Smoothie Arginine/Glut./Ca2+Bmb (Juven 19.3pkt) 240ml cup PO SCH (17:30)
[2021-07-14 19:00] VITALS: BP 149/66
[2021-07-14] MEDS: QUEtiapine 25mg tablet PO SCH (20:33)
[2021-07-14 22:15] VITALS: BP 145/66
[2021-07-15] MEDS: HYDROcodone/acetaminophen 10/325mg tab PO PRN ×6 (00:35→21:03)
[2021-07-15] MEDS: normal saline 1000ml 1,000 ML IV SCH ×3 (00:50→20:50)
[2021-07-15 02:11] VITALS: BP 128/65
[2021-07-15 04:53] LABS: BASOPHILS % (AUTO) 0.5 % (0-1); EOSINOPHILS # (AUTO) 0.2 X10'3 (0-0.9); EOSINOPHILS % (AUTO) 3.1 % (0-6); HEMATOCRIT 27.7 % (42.0-52.0); HEMOGLOBIN 9.1 g/dl (14.0-17.9); LYMPHOCYTES # (AUTO) 1.7 X10'3 (1.1-4.8); LYMPHOCYTES % (AUTO) 31.9 % (21-51); MEAN CORPUSCULAR HEMOGLOBIN 29.6 PG (27.0-31.0); MEAN CORPUSCULAR HGB CONC 33.1 g/dL (33.0-36.5); MEAN CORPUSCULAR VOLUME 89.6 FL (78-98); MEAN PLATELET VOLUME 7.2 FL (7.4-10.4); MONOCYTES # (AUTO) 0.5 X10'3 (0-0.9); MONOCYTES % (AUTO) 9.3 % (2-12); NEUTROPHILS # (AUTO) 2.9 X10'3 (1.8-7.7); NEUTROPHILS % (AUTO) 55.2 % (42-75); PLATELET COUNT 221 X10'3 (140-440); RED BLOOD COUNT 3.09 X10'6 (4.70-6.10); RED CELL DISTRIBUTION WIDTH 16.6 % (11.5-14.5); WHITE BLOOD COUNT 5.2 X10'3 (4.5-11.0)
[2021-07-15 05:06] LABS: ALANINE AMINOTRANSFERASE 19 U/L (12-78); ALBUMIN 2.3 G/DL (3.4-5.0); ALBUMIN/GLOBULIN RATIO 0.8 (1.1-1.5); ALKALINE PHOSPHATASE 68 IU/L (46-116); ANION GAP 8 (8-16); ASPARTATE AMINO TRANSFERASE 23 U/L (10-37); BILIRUBIN,TOTAL 0.3 MG/DL (0.1-1.0); BLOOD UREA NITROGEN 12 MG/DL (7-18); BUN/CREATININE RATIO 15.4 (5.4-32.0); CALCIUM 8.5 MG/DL (8.5-10.1); CHLORIDE 107 MMOL/L (99-107); CREATININE 0.78 MG/DL (0.60-1.10); GLUCOSE 90 MG/DL (70-104); POTASSIUM 3.7 MMOL/L (3.5-5.1); SODIUM 141 MMOL/L (135-145); TOTAL CARBON DIOXIDE 26.5 MMOL/L (24-32); TOTAL PROTEIN 5.3 G/DL (6.4-8.2); eGFR > 90 ML/MIN
--- NOTE | 2021-07-15 06:35 | NUR ---
Problems reprioritized. Patient report given, questions answered & plan of care reviewed with Bonita KUMAR.
[2021-07-15] MEDS: JUVEN Smoothie Arginine/Glut./Ca2+Bmb (Juven 19.3pkt) 240ml cup PO SCH ×2 (07:30→17:30)
[2021-07-15] MEDS: K and/or MAG REPLACEMENT MC SCH (08:00)
[2021-07-15] MEDS: levoFLOXACIN-Levaquin 500mg/D5 100 ML IV SCH (09:02)
[2021-07-15] MEDS: tamsulosin 0.4mg capsule PO SCH (09:02)
[2021-07-15] MEDS: aspirin 81mg, enteric-coated 1 TAB TABLET.DR PO SCH (09:02)
[2021-07-15] MEDS: pantoprazole 40mg Tablet.DR PO SCH (09:02)
[2021-07-15] MEDS: thiamine 100mg tablet PO SCH (09:02)
[2021-07-15] MEDS: gabapentin 100mg capsule PO SCH ×3 (09:03→20:49)
[2021-07-15] MEDS: divalproex 250mg tablet, delayed-release PO SCH ×2 (09:03→20:48)
[2021-07-15] MEDS: iron polysaccharide complex 150mg capsule PO SCH (09:03)
[2021-07-15] MEDS: metoprolol succinate 25mg (24-HOUR) SR. Tablet PO SCH (09:03)
[2021-07-15] MEDS: folic acid 1mg tablet PO SCH (09:03)
[2021-07-15] MEDS: heparin, porcine 5000 units/ml vial SQ SCH ×2 (09:04→20:50)
[2021-07-15] MEDS: primidone 50mg tablet PO SCH (09:04)
[2021-07-15 10:00] VITALS: BP 136/60
[2021-07-15 15:00] VITALS: BP 142/60
[2021-07-15] MEDS: morphine 2 MG/ML inj. syringe IV PRN (15:55)
--- NOTE | 2021-07-15 17:59 | NUR ---
Wound care done by PT wound nurse. Worked with PT. Free from injuries.
[2021-07-15 18:00] VITALS: BP 155/75
--- NOTE | 2021-07-15 18:30 | NUR ---
Problems reprioritized. Patient report given, questions answered & plan of care reviewed with Kendal RN.
[2021-07-15] MEDS: QUEtiapine 25mg tablet PO SCH (20:49)
[2021-07-15 22:00] VITALS: BP 119/50
[2021-07-16] MEDS: HYDROcodone/acetaminophen 10/325mg tab PO PRN ×6 (01:02→21:47)
[2021-07-16 02:00] VITALS: BP 119/50
[2021-07-16 06:00] VITALS: BP 161/73
--- NOTE | 2021-07-16 06:43 | NUR ---
Change of shift report given to Josseline KUMAR Addendum: 07/16/21 at 0644 by Kendal Oconnor RN Amended: Links added.
[2021-07-16] MEDS: normal saline 1000ml 1,000 ML IV SCH ×3 (06:50→23:00)
--- NOTE | 2021-07-16 07:05 | NUR ---
Patient in room MED 315. I have received report from STACY CARRINGTON, and had the opportunity to ask questions and assume patient care.
[2021-07-16] MEDS: JUVEN Smoothie Arginine/Glut./Ca2+Bmb (Juven 19.3pkt) 240ml cup PO SCH ×2 (07:30→17:30)
[2021-07-16] MEDS: K and/or MAG REPLACEMENT MC SCH ×2 (08:00→19:21)
[2021-07-16] MEDS: heparin, porcine 5000 units/ml vial SQ SCH ×2 (08:45→19:20)
[2021-07-16] MEDS: iron polysaccharide complex 150mg capsule PO SCH (08:45)
[2021-07-16] MEDS: folic acid 1mg tablet PO SCH (08:45)
[2021-07-16] MEDS: gabapentin 100mg capsule PO SCH ×3 (08:46→19:19)
[2021-07-16] MEDS: metoprolol succinate 25mg (24-HOUR) SR. Tablet PO SCH (08:46)
[2021-07-16] MEDS: pantoprazole 40mg Tablet.DR PO SCH (08:46)
[2021-07-16] MEDS: thiamine 100mg tablet PO SCH (08:46)
[2021-07-16] MEDS: primidone 50mg tablet PO SCH (08:47)
[2021-07-16] MEDS: aspirin 81mg, enteric-coated 1 TAB TABLET.DR PO SCH (08:47)
[2021-07-16] MEDS: tamsulosin 0.4mg capsule PO SCH (08:47)
[2021-07-16] MEDS: divalproex 250mg tablet, delayed-release PO SCH ×2 (08:47→19:19)
[2021-07-16 10:00] VITALS: BP 135/62
[2021-07-16] MEDS: levoFLOXACIN 500mg tablet PO SCH (12:34)
[2021-07-16 15:00] VITALS: BP 141/71
--- NOTE | 2021-07-16 17:56 | NUR ---
GATHERED THE EQUIPMENT TO PLACE PIV THE PREVIOUS IV WAS INFILTRATED. PT REFUSED.
--- NOTE | 2021-07-16 18:41 | NUR ---
Problems reprioritized. Patient report given, questions answered & plan of care reviewed with STACY LUEVANO.
[2021-07-16 19:00] VITALS: BP 138/47
[2021-07-16] MEDS: lactobacillus rhamnosus 10,000 MMU CELLS/CAPSULE PO SCH (19:18)
[2021-07-16] MEDS: QUEtiapine 25mg tablet PO SCH (19:19)
[2021-07-16 23:00] VITALS: BP 120/86
[2021-07-17] MEDS: HYDROcodone/acetaminophen 10/325mg tab PO PRN ×6 (02:33→23:32)
[2021-07-17 03:00] VITALS: BP 120/86
--- NOTE | 2021-07-17 06:34 | NUR ---
Patient in room MED 315A. I have received report from STACY Pool and had the opportunity to ask questions and assume patient care.
[2021-07-17] MEDS: lactobacillus rhamnosus 10,000 MMU CELLS/CAPSULE PO SCH ×2 (07:14→19:01)
[2021-07-17] MEDS: pantoprazole 40mg Tablet.DR PO SCH (07:14)
[2021-07-17] MEDS: divalproex 250mg tablet, delayed-release PO SCH ×2 (07:14→19:03)
[2021-07-17] MEDS: folic acid 1mg tablet PO SCH (07:14)
[2021-07-17] MEDS: aspirin 81mg, enteric-coated 1 TAB TABLET.DR PO SCH (07:14)
[2021-07-17] MEDS: iron polysaccharide complex 150mg capsule PO SCH (07:14)
[2021-07-17] MEDS: gabapentin 100mg capsule PO SCH ×3 (07:14→19:02)
[2021-07-17] MEDS: tamsulosin 0.4mg capsule PO SCH (07:14)
[2021-07-17] MEDS: metoprolol succinate 25mg (24-HOUR) SR. Tablet PO SCH (07:15)
[2021-07-17] MEDS: thiamine 100mg tablet PO SCH (07:15)
[2021-07-17] MEDS: primidone 50mg tablet PO SCH (07:15)
[2021-07-17] MEDS: heparin, porcine 5000 units/ml vial SQ SCH ×2 (07:15→19:04)
[2021-07-17] MEDS: JUVEN Smoothie Arginine/Glut./Ca2+Bmb (Juven 19.3pkt) 240ml cup PO SCH ×2 (07:30→17:50)
[2021-07-17] MEDS: K and/or MAG REPLACEMENT MC SCH ×2 (08:00→18:55)
[2021-07-17] MEDS: normal saline 1000ml 1,000 ML IV SCH (09:31)
[2021-07-17 10:00] VITALS: BP 119/74
[2021-07-17] MEDS: levoFLOXACIN 500mg tablet PO SCH (11:23)
[2021-07-17] MEDS: lactose-reduced food (Ensure Enlive) - 237ml bottle PO SCH ×2 (13:00→17:50)
[2021-07-17 15:00] VITALS: BP 148/64
--- NOTE | 2021-07-17 18:15 | NUR ---
Problems reprioritized. Patient report given, questions answered & plan of care reviewed with STACY Pool.
[2021-07-17 18:42] VITALS: BP 139/68
[2021-07-17] MEDS: QUEtiapine 25mg tablet PO SCH (19:02)
[2021-07-17 22:00] VITALS: BP 107/55
[2021-07-18 02:00] VITALS: BP 129/53
[2021-07-18] MEDS: HYDROcodone/acetaminophen 10/325mg tab PO PRN ×5 (03:22→20:12)
--- NOTE | 2021-07-18 05:52 | NUR ---
Problems reprioritized. Patient report given, questions answered & plan of care reviewed with STACY Manjarrez.
[2021-07-18 06:00] VITALS: BP 112/58
--- NOTE | 2021-07-18 06:52 | NUR ---
Patient in room MED 315. I have received report from STACY LUEVANO, and had the opportunity to ask questions and assume patient care.
[2021-07-18] MEDS: primidone 50mg tablet PO SCH (07:25)
[2021-07-18] MEDS: aspirin 81mg, enteric-coated 1 TAB TABLET.DR PO SCH (07:25)
[2021-07-18] MEDS: divalproex 250mg tablet, delayed-release PO SCH ×2 (07:25→20:13)
[2021-07-18] MEDS: pantoprazole 40mg Tablet.DR PO SCH (07:25)
[2021-07-18] MEDS: gabapentin 100mg capsule PO SCH ×3 (07:25→20:14)
[2021-07-18] MEDS: folic acid 1mg tablet PO SCH (07:25)
[2021-07-18] MEDS: tamsulosin 0.4mg capsule PO SCH (07:25)
[2021-07-18] MEDS: iron polysaccharide complex 150mg capsule PO SCH (07:26)
[2021-07-18] MEDS: metoprolol succinate 25mg (24-HOUR) SR. Tablet PO SCH (07:26)
[2021-07-18] MEDS: lactobacillus rhamnosus 10,000 MMU CELLS/CAPSULE PO SCH ×2 (07:26→20:13)
[2021-07-18] MEDS: thiamine 100mg tablet PO SCH (07:26)
[2021-07-18] MEDS: heparin, porcine 5000 units/ml vial SQ SCH ×2 (07:27→20:13)
[2021-07-18] MEDS: JUVEN Smoothie Arginine/Glut./Ca2+Bmb (Juven 19.3pkt) 240ml cup PO SCH ×2 (07:30→18:30)
[2021-07-18] MEDS: lactose-reduced food (Ensure Enlive) - 237ml bottle PO SCH ×2 (08:00→13:00)
[2021-07-18] MEDS: K and/or MAG REPLACEMENT MC SCH ×2 (08:00→20:00)
[2021-07-18 10:00] VITALS: BP 115/56
--- NOTE | 2021-07-18 10:01 | NUR ---
Reassessment: Pt PO 100% avg most now heart healthy meals since 07/15. Noted MM5/thin diet cancelled 07/15 w/ heart healthy diet order "no pureed". OLIVIER recommends f/u BRAKE ADJUSTER BSS given initial DX possible aspiration; notified. Pt requesting protein drinks w/ Ensure Enlive TIDWM ordered in EMR in addition to Alexandre ONS BID which pt consuming 100% of. OLIVIER paged MD and d/w RN regarding stopping Ensure Enlive TIDWM as not indicated given PO hx. RN reports pt is requesting Ensure ONS; may benefit from change to Ensure High Protein WL w/ current Alexandre ONS. LBM 07/17. No further nutrition interventions at this time; will continue to monitor. Recs: 1. advance to regular diet per BRAKE ADJUSTER/MD recs; no prior cardiac hx per EMR 2. Alexanrde smoothies BIDBD 3. Stop Ensure Enlive TIDWM if MD agreeable; change to Ensure High Protein WL to honor pt preference 4. Bowel care per rx 5. Scaled wts Addendum: 07/18/21 at [address] Amended: Links added.
[2021-07-18] MEDS: lactose-reduced food (Ensure High Protein) 237ml bottle PO SCH (12:00)
--- NOTE | 2021-07-18 13:26 | NUR ---
PRESSURE ULCER EDUCATION: DEFINITION: A pressure ulcer is an area of skin that breaks down when you stay in one position too long. The constant pressure against the skin reduces the blood flow to that area and the affected tissue dies. CAUSES: "Being bedridden or in a wheelchair "Fragile skin "Having a chronic condition, such as diabetes or vascular disease "Inability to move certain parts of your body without assistance "Older age "Incontinence of urine or stool SYMPTOMS: "A reddened area that DOES NOT turn white when pressed on - this can be the beginning of a pressure ulcer "A blister, deep sore or a crater - these can be advanced pressure ulcers FIRST AID: "Relieve the pressure on this area "Keep the area clean and dry "Call your primary doctor if you see any of the above symptoms "DO NOT massage the area "DO NOT use a donut shaped or ring shaped pillow- these actually interfere with the blood flow and cause complications PREVENTION: "Check for pressure ulcers everyday "Change position at least every two hours to relieve pressure "Use items that help relieve pressure- pillows, sheepskin, foam padding, and powders. "Keep skin clean and dry "Eat healthy well balanced meals "Exercise daily IF YOU SEE ANY OF THESE SYMPTOMS WHILE IN THE HOSPITAL - TELL YOUR NURSE IMMEDIATELY. IF YOU SEE ANY OF THESE SYMPTOMS WHILE AT HOME OR HAVE ANY QUESTIONS OR CONCERNS ABOUT PRESSURE ULCERS - CALL YOUR PRIMARY DOCTOR IMMEDIATELY. Addendum: 07/18/21 at 1327 by Vicky Chacon RN Amended: Links added.
[2021-07-18 15:00] VITALS: BP 122/51
[2021-07-18 18:00] VITALS: BP 151/64
--- NOTE | 2021-07-18 18:39 | NUR ---
Problems reprioritized. Patient report given, questions answered & plan of care reviewed with STACY ORTIZ.
[2021-07-18 22:00] VITALS: BP 137/46
[2021-07-18] MEDS: QUEtiapine 25mg tablet PO SCH (22:24)
[2021-07-19] MEDS: HYDROcodone/acetaminophen 10/325mg tab PO PRN ×5 (00:04→18:52)
[2021-07-19 05:59] LABS: BASOPHILS % (AUTO) 0.7 % (0-1); EOSINOPHILS # (AUTO) 0.2 X10'3 (0-0.9); EOSINOPHILS % (AUTO) 2.5 % (0-6); HEMATOCRIT 30.2 % (42.0-52.0); HEMOGLOBIN 10.1 g/dl (14.0-17.9); LYMPHOCYTES % (AUTO) 33.1 % (21-51); MEAN CORPUSCULAR HEMOGLOBIN 29.9 PG (27.0-31.0); MEAN CORPUSCULAR HGB CONC 33.4 g/dL (33.0-36.5); MEAN CORPUSCULAR VOLUME 89.6 FL (78-98); MEAN PLATELET VOLUME 7.1 FL (7.4-10.4); MONOCYTES # (AUTO) 0.8 X10'3 (0-0.9); MONOCYTES % (AUTO) 12.8 % (2-12); NEUTROPHILS % (AUTO) 50.9 % (42-75); PLATELET COUNT 246 X10'3 (140-440); RED BLOOD COUNT 3.37 X10'6 (4.70-6.10); RED CELL DISTRIBUTION WIDTH 17.5 % (11.5-14.5)
--- NOTE | 2021-07-19 06:00 | NUR ---
received report from fred, rn
[2021-07-19 06:10] LABS: ALBUMIN 2.7 G/DL (3.4-5.0); ANION GAP 7 (8-16); BLOOD UREA NITROGEN 28 MG/DL (7-18); BUN/CREATININE RATIO 29.8 (5.4-32.0); CALCIUM 9.1 MG/DL (8.5-10.1); CHLORIDE 99 MMOL/L (99-107); CREATININE 0.94 MG/DL (0.60-1.10); GLUCOSE 94 MG/DL (70-104); POTASSIUM 4.8 MMOL/L (3.5-5.1); SODIUM 133 MMOL/L (135-145); eGFR 79 ML/MIN
[2021-07-19 06:55] VITALS: BP 123/72
[2021-07-19] MEDS: K and/or MAG REPLACEMENT MC SCH ×2 (07:09→18:53)
[2021-07-19] MEDS: metoprolol succinate 25mg (24-HOUR) SR. Tablet PO SCH (07:19)
[2021-07-19] MEDS: thiamine 100mg tablet PO SCH (07:20)
[2021-07-19] MEDS: primidone 50mg tablet PO SCH (07:20)
[2021-07-19] MEDS: tamsulosin 0.4mg capsule PO SCH (07:21)
[2021-07-19] MEDS: iron polysaccharide complex 150mg capsule PO SCH (07:21)
[2021-07-19] MEDS: gabapentin 100mg capsule PO SCH ×3 (07:21→19:53)
[2021-07-19] MEDS: folic acid 1mg tablet PO SCH (07:21)
[2021-07-19] MEDS: pantoprazole 40mg Tablet.DR PO SCH (07:21)
[2021-07-19] MEDS: lactobacillus rhamnosus 10,000 MMU CELLS/CAPSULE PO SCH ×2 (07:22→19:51)
[2021-07-19] MEDS: aspirin 81mg, enteric-coated 1 TAB TABLET.DR PO SCH (07:22)
[2021-07-19] MEDS: divalproex 250mg tablet, delayed-release PO SCH ×2 (07:22→19:53)
[2021-07-19] MEDS: heparin, porcine 5000 units/ml vial SQ SCH ×2 (07:23→19:53)
[2021-07-19] MEDS: lactose-reduced food (Ensure High Protein) 237ml bottle PO SCH ×2 (07:56→08:00)
[2021-07-19] MEDS: JUVEN Smoothie Arginine/Glut./Ca2+Bmb (Juven 19.3pkt) 240ml cup PO SCH ×2 (07:56→17:41)
[2021-07-19 11:00] VITALS: BP 99/44
[2021-07-19 15:00] VITALS: BP 91/48
[2021-07-19 18:00] VITALS: BP 100/49
--- NOTE | 2021-07-19 18:20 | NUR ---
gave report to annia dalton
[2021-07-19] MEDS: QUEtiapine 25mg tablet PO SCH (19:52)
[2021-07-19 22:00] VITALS: BP 150/65
[2021-07-20] MEDS: HYDROcodone/acetaminophen 10/325mg tab PO PRN ×4 (01:00→19:15)
[2021-07-20 02:00] VITALS: BP 148/62
[2021-07-20] MEDS: pantoprazole 40mg Tablet.DR PO SCH (07:04)
[2021-07-20] MEDS: primidone 50mg tablet PO SCH (07:04)
[2021-07-20] MEDS: tamsulosin 0.4mg capsule PO SCH (07:04)
[2021-07-20] MEDS: divalproex 250mg tablet, delayed-release PO SCH ×2 (07:04→20:17)
[2021-07-20] MEDS: metoprolol succinate 25mg (24-HOUR) SR. Tablet PO SCH (07:04)
[2021-07-20] MEDS: thiamine 100mg tablet PO SCH (07:05)
[2021-07-20] MEDS: iron polysaccharide complex 150mg capsule PO SCH (07:05)
[2021-07-20] MEDS: gabapentin 100mg capsule PO SCH ×3 (07:05→20:16)
[2021-07-20] MEDS: folic acid 1mg tablet PO SCH (07:05)
[2021-07-20] MEDS: lactobacillus rhamnosus 10,000 MMU CELLS/CAPSULE PO SCH ×2 (07:05→20:16)
[2021-07-20] MEDS: aspirin 81mg, enteric-coated 1 TAB TABLET.DR PO SCH (07:05)
[2021-07-20] MEDS: heparin, porcine 5000 units/ml vial SQ SCH ×2 (07:06→20:17)
[2021-07-20 07:22] LABS: BASOPHILS # (AUTO) 0.1 X10'3 (0-0.2); BASOPHILS % (AUTO) 1.2 % (0-1); EOSINOPHILS # (AUTO) 0.1 X10'3 (0-0.9); EOSINOPHILS % (AUTO) 2.3 % (0-6); HEMATOCRIT 32.1 % (42.0-52.0); HEMOGLOBIN 10.8 g/dl (14.0-17.9); LYMPHOCYTES # (AUTO) 1.4 X10'3 (1.1-4.8); LYMPHOCYTES % (AUTO) 29.3 % (21-51); MEAN CORPUSCULAR HEMOGLOBIN 30.4 PG (27.0-31.0); MEAN CORPUSCULAR HGB CONC 33.6 g/dL (33.0-36.5); MEAN CORPUSCULAR VOLUME 90.5 FL (78-98); MEAN PLATELET VOLUME 7.4 FL (7.4-10.4); MONOCYTES # (AUTO) 0.7 X10'3 (0-0.9); MONOCYTES % (AUTO) 14.6 % (2-12); NEUTROPHILS # (AUTO) 2.5 X10'3 (1.8-7.7); NEUTROPHILS % (AUTO) 52.6 % (42-75); PLATELET COUNT 234 X10'3 (140-440); RED BLOOD COUNT 3.55 X10'6 (4.70-6.10); RED CELL DISTRIBUTION WIDTH 17.3 % (11.5-14.5); WHITE BLOOD COUNT 4.7 X10'3 (4.5-11.0)
[2021-07-20 07:47] LABS: ALANINE AMINOTRANSFERASE 14 U/L (12-78); ALBUMIN 2.8 G/DL (3.4-5.0); ALBUMIN/GLOBULIN RATIO 0.8 (1.1-1.5); ALKALINE PHOSPHATASE 70 IU/L (46-116); ANION GAP 7 (8-16); ASPARTATE AMINO TRANSFERASE 16 U/L (10-37); BILIRUBIN,TOTAL 0.3 MG/DL (0.1-1.0); BLOOD UREA NITROGEN 35 MG/DL (7-18); BUN/CREATININE RATIO 36.5 (5.4-32.0); CALCIUM 9.3 MG/DL (8.5-10.1); CHLORIDE 99 MMOL/L (99-107); CREATININE 0.96 MG/DL (0.60-1.10); GLUCOSE 89 MG/DL (70-104); MAGNESIUM 1.5 MG/DL (1.5-2.4); PHOSPHORUS 4.3 MG/DL (2.3-4.5); POTASSIUM 4.9 MMOL/L (3.5-5.1); SODIUM 135 MMOL/L (135-145); TOTAL CARBON DIOXIDE 28.6 MMOL/L (24-32); TOTAL PROTEIN 6.5 G/DL (6.4-8.2); eGFR 77 ML/MIN
[2021-07-20] MEDS: K and/or MAG REPLACEMENT MC SCH ×2 (08:00→20:00)
[2021-07-20] MEDS: lactose-reduced food (Ensure High Protein) 237ml bottle PO SCH (08:06)
[2021-07-20] MEDS: JUVEN Smoothie Arginine/Glut./Ca2+Bmb (Juven 19.3pkt) 240ml cup PO SCH ×2 (08:06→17:57)
[2021-07-20 10:26] VITALS: BP 106/55
[2021-07-20 12:00] VITALS: BP 104/46
[2021-07-20 16:56] VITALS: BP 93/49
--- NOTE | 2021-07-20 18:40 | NUR ---
Patient in room MED 315. I have received report from ADDISON KUMAR and had the opportunity to ask questions and assume patient care.
[2021-07-20 19:00] VITALS: BP 110/58
[2021-07-20] MEDS: QUEtiapine 25mg tablet PO SCH (20:16)
[2021-07-20 23:00] VITALS: BP 101/59
[2021-07-21] MEDS: HYDROcodone/acetaminophen 10/325mg tab PO PRN ×4 (01:17→19:18)
[2021-07-21 03:00] VITALS: BP 100/52
[2021-07-21 06:00] VITALS: BP 98/48
--- NOTE | 2021-07-21 06:30 | NUR ---
Problems reprioritized. Patient report given, questions answered & plan of care reviewed with ADDISON KUMAR.
[2021-07-21 06:58] LABS: BASOPHILS # (AUTO) 0.1 X10'3 (0-0.2); BASOPHILS % (AUTO) 1.2 % (0-1); EOSINOPHILS # (AUTO) 0.1 X10'3 (0-0.9); EOSINOPHILS % (AUTO) 2.2 % (0-6); HEMATOCRIT 31.8 % (42.0-52.0); HEMOGLOBIN 10.7 g/dl (14.0-17.9); LYMPHOCYTES # (AUTO) 1.7 X10'3 (1.1-4.8); LYMPHOCYTES % (AUTO) 31.5 % (21-51); MEAN CORPUSCULAR HEMOGLOBIN 30.1 PG (27.0-31.0); MEAN CORPUSCULAR HGB CONC 33.6 g/dL (33.0-36.5); MEAN CORPUSCULAR VOLUME 89.6 FL (78-98); MEAN PLATELET VOLUME 7.4 FL (7.4-10.4); MONOCYTES # (AUTO) 0.9 X10'3 (0-0.9); NEUTROPHILS # (AUTO) 2.7 X10'3 (1.8-7.7); NEUTROPHILS % (AUTO) 49.1 % (42-75); PLATELET COUNT 248 X10'3 (140-440); RED BLOOD COUNT 3.55 X10'6 (4.70-6.10); RED CELL DISTRIBUTION WIDTH 17.5 % (11.5-14.5); WHITE BLOOD COUNT 5.4 X10'3 (4.5-11.0)
[2021-07-21] MEDS: primidone 50mg tablet PO SCH (07:17)
[2021-07-21] MEDS: aspirin 81mg, enteric-coated 1 TAB TABLET.DR PO SCH (07:17)
[2021-07-21] MEDS: folic acid 1mg tablet PO SCH (07:18)
[2021-07-21] MEDS: divalproex 250mg tablet, delayed-release PO SCH ×2 (07:18→19:19)
[2021-07-21] MEDS: tamsulosin 0.4mg capsule PO SCH (07:18)
[2021-07-21] MEDS: thiamine 100mg tablet PO SCH (07:18)
[2021-07-21] MEDS: metoprolol succinate 25mg (24-HOUR) SR. Tablet PO SCH (07:18)
[2021-07-21] MEDS: lactobacillus rhamnosus 10,000 MMU CELLS/CAPSULE PO SCH ×2 (07:18→19:18)
[2021-07-21] MEDS: iron polysaccharide complex 150mg capsule PO SCH (07:18)
[2021-07-21] MEDS: pantoprazole 40mg Tablet.DR PO SCH (07:18)
[2021-07-21] MEDS: gabapentin 100mg capsule PO SCH ×3 (07:18→21:23)
[2021-07-21] MEDS: heparin, porcine 5000 units/ml vial SQ SCH ×2 (07:19→19:19)
[2021-07-21] MEDS: K and/or MAG REPLACEMENT MC SCH ×2 (07:23→19:08)
[2021-07-21] MEDS: JUVEN Smoothie Arginine/Glut./Ca2+Bmb (Juven 19.3pkt) 240ml cup PO SCH ×2 (07:30→17:30)
[2021-07-21 07:40] LABS: ALANINE AMINOTRANSFERASE 15 U/L (12-78); ALBUMIN 2.9 G/DL (3.4-5.0); ALBUMIN/GLOBULIN RATIO 0.8 (1.1-1.5); ALKALINE PHOSPHATASE 72 IU/L (46-116); ANION GAP 7 (8-16); ASPARTATE AMINO TRANSFERASE 13 U/L (10-37); BILIRUBIN,TOTAL 0.3 MG/DL (0.1-1.0); BLOOD UREA NITROGEN 36 MG/DL (7-18); BUN/CREATININE RATIO 34.6 (5.4-32.0); CALCIUM 9.3 MG/DL (8.5-10.1); CHLORIDE 96 MMOL/L (99-107); CREATININE 1.04 MG/DL (0.60-1.10); GLUCOSE 87 MG/DL (70-104); MAGNESIUM 1.6 MG/DL (1.5-2.4); POTASSIUM 4.2 MMOL/L (3.5-5.1); SODIUM 133 MMOL/L (135-145); TOTAL CARBON DIOXIDE 29.7 MMOL/L (24-32); TOTAL PROTEIN 6.5 G/DL (6.4-8.2); eGFR 71 ML/MIN
[2021-07-21] MEDS: lactose-reduced food (Ensure High Protein) 237ml bottle PO SCH (08:30)
[2021-07-21 10:00] VITALS: BP 92/41
--- NOTE | 2021-07-21 10:00 | NUR ---
Patient walked with physical therapy using the large walker, PT had to convince patient to walk, complained about pain most of the time, patient able to tolerate walk.
[2021-07-21 12:36] LABS: ANISOCYTOSIS 1+; PLATELET ESTIMATE NORMAL; TOTAL CELLS COUNTED 100
[2021-07-21 12:37] LABS: GIANT PLATELET FEW
[2021-07-21 12:38] LABS: ELLIPTOCYTES FEW
[2021-07-21 16:00] VITALS: BP 104/49
[2021-07-21 18:00] VITALS: BP 87/47
--- NOTE | 2021-07-21 18:52 | NUR ---
Patient in room MED 315. I have received report from ADDISON KUMAR and had the opportunity to ask questions and assume patient care.
[2021-07-21] MEDS: QUEtiapine 25mg tablet PO SCH (21:23)
[2021-07-21 22:00] VITALS: BP 91/47
[2021-07-22] VITALS (7 sets, daily range): BP systolic 89–109; BP diastolic 45–65
[2021-07-22] MEDS: HYDROcodone/acetaminophen 10/325mg tab PO PRN ×4 (01:24→20:26)
--- NOTE | 2021-07-22 06:28 | NUR ---
Problems reprioritized. Patient report given, questions answered & plan of care reviewed with TONG KUMAR.
[2021-07-22 07:28] LABS: BASOPHILS # (AUTO) 0.1 X10'3 (0-0.2); BASOPHILS % (AUTO) 1.1 % (0-1); EOSINOPHILS # (AUTO) 0.2 X10'3 (0-0.9); EOSINOPHILS % (AUTO) 3.5 % (0-6); HEMATOCRIT 29.6 % (42.0-52.0); HEMOGLOBIN 9.9 g/dl (14.0-17.9); LYMPHOCYTES # (AUTO) 1.9 X10'3 (1.1-4.8); LYMPHOCYTES % (AUTO) 38.4 % (21-51); MEAN CORPUSCULAR HEMOGLOBIN 30.1 PG (27.0-31.0); MEAN CORPUSCULAR HGB CONC 33.5 g/dL (33.0-36.5); MEAN CORPUSCULAR VOLUME 89.9 FL (78-98); MEAN PLATELET VOLUME 7.5 FL (7.4-10.4); MONOCYTES # (AUTO) 0.8 X10'3 (0-0.9); MONOCYTES % (AUTO) 15.5 % (2-12); NEUTROPHILS # (AUTO) 2.1 X10'3 (1.8-7.7); NEUTROPHILS % (AUTO) 41.5 % (42-75); PLATELET COUNT 223 X10'3 (140-440); RED BLOOD COUNT 3.29 X10'6 (4.70-6.10); RED CELL DISTRIBUTION WIDTH 16.9 % (11.5-14.5)
[2021-07-22] MEDS: JUVEN Smoothie Arginine/Glut./Ca2+Bmb (Juven 19.3pkt) 240ml cup PO SCH ×2 (07:30→17:51)
[2021-07-22 07:36] LABS: ALANINE AMINOTRANSFERASE 17 U/L (12-78); ALBUMIN 2.7 G/DL (3.4-5.0); ALBUMIN/GLOBULIN RATIO 0.8 (1.1-1.5); ALKALINE PHOSPHATASE 69 IU/L (46-116); ANION GAP 7 (8-16); ASPARTATE AMINO TRANSFERASE 12 U/L (10-37); BILIRUBIN,TOTAL 0.3 MG/DL (0.1-1.0); BLOOD UREA NITROGEN 37 MG/DL (7-18); BUN/CREATININE RATIO 40.2 (5.4-32.0); CALCIUM 8.9 MG/DL (8.5-10.1); CHLORIDE 96 MMOL/L (99-107); CREATININE 0.92 MG/DL (0.60-1.10); GLUCOSE 97 MG/DL (70-104); MAGNESIUM 1.6 MG/DL (1.5-2.4); PHOSPHORUS 3.7 MG/DL (2.3-4.5); POTASSIUM 4.3 MMOL/L (3.5-5.1); SODIUM 132 MMOL/L (135-145); TOTAL CARBON DIOXIDE 29.4 MMOL/L (24-32); TOTAL PROTEIN 6.1 G/DL (6.4-8.2); eGFR 81 ML/MIN
[2021-07-22] MEDS: lactose-reduced food (Ensure High Protein) 237ml bottle PO SCH (08:00)
[2021-07-22] MEDS: K and/or MAG REPLACEMENT MC SCH ×2 (08:00→20:00)
[2021-07-22] MEDS: heparin, porcine 5000 units/ml vial SQ SCH ×2 (08:11→20:27)
[2021-07-22] MEDS: lactobacillus rhamnosus 10,000 MMU CELLS/CAPSULE PO SCH ×2 (08:11→20:25)
[2021-07-22] MEDS: primidone 50mg tablet PO SCH (08:12)
[2021-07-22] MEDS: tamsulosin 0.4mg capsule PO SCH (08:12)
[2021-07-22] MEDS: thiamine 100mg tablet PO SCH (08:12)
[2021-07-22] MEDS: divalproex 250mg tablet, delayed-release PO SCH ×2 (08:12→20:25)
[2021-07-22] MEDS: iron polysaccharide complex 150mg capsule PO SCH (08:12)
[2021-07-22] MEDS: aspirin 81mg, enteric-coated 1 TAB TABLET.DR PO SCH (08:12)
[2021-07-22] MEDS: metoprolol succinate 25mg (24-HOUR) SR. Tablet PO SCH (08:12)
[2021-07-22] MEDS: gabapentin 100mg capsule PO SCH ×3 (08:12→20:25)
[2021-07-22] MEDS: pantoprazole 40mg Tablet.DR PO SCH (08:12)
[2021-07-22] MEDS: folic acid 1mg tablet PO SCH (08:12)
[2021-07-22 12:42] LABS: ANISOCYTOSIS 1+; ELLIPTOCYTES FEW; PLATELET ESTIMATE NORMAL; TOTAL CELLS COUNTED 100
--- NOTE | 2021-07-22 12:54 | NUR ---
Reassessment: Pt PO intake 79% avg of heart healthy meals and 83% avg PO intake of supplements since 07/18, meeting nutritional needs. Pt could benefit from liberalization to regular diet r/t low serum Na 132 on current heart healthy restriction and no cardiac PMH per EMR; discussed w/ RN. LBM 07/17 w/ MoM available PRN; discussed /w RN. No nutrition interventions at this time; will continue to monitor. Recs: 1. Liberalization to regular diet as tolerated 2. Continue Alexandre smoothies BIDBD 3. Continue Ensure HP WL per pt request 4. Routine Bowel care per rx 5. Scaled wts this admit, subsequent weekly wt Addendum: 07/22/21 at [address] Amended: Links added. Addendum: 07/22/21 at [address] OLIVIER has reviewed and approves of this note.
--- NOTE | 2021-07-22 15:13 | NUR ---
msg sent to Dr. Garcia: 315 Kevin: can we advance to regular diet please? solution consultant is requesting. thank you. Keira KUMAR [phone]
[2021-07-22] MEDS: QUEtiapine 25mg tablet PO SCH (20:26)
[2021-07-23 02:00] VITALS: BP 93/51
[2021-07-23] MEDS: HYDROcodone/acetaminophen 10/325mg tab PO PRN ×4 (02:46→20:01)
[2021-07-23 06:00] VITALS: BP 102/46
[2021-07-23 07:27] LABS: BASOPHILS # (AUTO) 0.1 X10'3 (0-0.2); BASOPHILS % (AUTO) 1.2 % (0-1); EOSINOPHILS # (AUTO) 0.2 X10'3 (0-0.9); EOSINOPHILS % (AUTO) 3.9 % (0-6); HEMOGLOBIN 9.7 g/dl (14.0-17.9); LYMPHOCYTES # (AUTO) 2.1 X10'3 (1.1-4.8); LYMPHOCYTES % (AUTO) 40.1 % (21-51); MEAN CORPUSCULAR HEMOGLOBIN 30.8 PG (27.0-31.0); MEAN CORPUSCULAR HGB CONC 34.5 g/dL (33.0-36.5); MEAN CORPUSCULAR VOLUME 89.1 FL (78-98); MEAN PLATELET VOLUME 7.7 FL (7.4-10.4); MONOCYTES # (AUTO) 0.7 X10'3 (0-0.9); MONOCYTES % (AUTO) 12.7 % (2-12); NEUTROPHILS # (AUTO) 2.2 X10'3 (1.8-7.7); NEUTROPHILS % (AUTO) 42.1 % (42-75); PLATELET COUNT 221 X10'3 (140-440); RED BLOOD COUNT 3.14 X10'6 (4.70-6.10); RED CELL DISTRIBUTION WIDTH 16.9 % (11.5-14.5); WHITE BLOOD COUNT 5.3 X10'3 (4.5-11.0)
[2021-07-23] MEDS: JUVEN Smoothie Arginine/Glut./Ca2+Bmb (Juven 19.3pkt) 240ml cup PO SCH ×3 (07:30→19:38)
[2021-07-23 07:34] LABS: ALANINE AMINOTRANSFERASE 14 U/L (12-78); ALBUMIN 2.7 G/DL (3.4-5.0); ALBUMIN/GLOBULIN RATIO 0.8 (1.1-1.5); ALKALINE PHOSPHATASE 74 IU/L (46-116); ANION GAP 7 (8-16); ASPARTATE AMINO TRANSFERASE 16 U/L (10-37); BILIRUBIN,TOTAL 0.2 MG/DL (0.1-1.0); BLOOD UREA NITROGEN 37 MG/DL (7-18); BUN/CREATININE RATIO 38.1 (5.4-32.0); CALCIUM 8.7 MG/DL (8.5-10.1); CHLORIDE 96 MMOL/L (99-107); CREATININE 0.97 MG/DL (0.60-1.10); GLUCOSE 113 MG/DL (70-104); MAGNESIUM 1.7 MG/DL (1.5-2.4); PHOSPHORUS 3.3 MG/DL (2.3-4.5); POTASSIUM 3.9 MMOL/L (3.5-5.1); SODIUM 132 MMOL/L (135-145); TOTAL CARBON DIOXIDE 29.4 MMOL/L (24-32); TOTAL PROTEIN 6.2 G/DL (6.4-8.2); eGFR 77 ML/MIN
[2021-07-23] MEDS: lactose-reduced food (Ensure High Protein) 237ml bottle PO SCH (08:00)
[2021-07-23] MEDS: K and/or MAG REPLACEMENT MC SCH ×2 (08:00→19:15)
[2021-07-23] MEDS: pantoprazole 40mg Tablet.DR PO SCH (09:15)
[2021-07-23] MEDS: folic acid 1mg tablet PO SCH (09:15)
[2021-07-23] MEDS: gabapentin 100mg capsule PO SCH ×3 (09:16→20:00)
[2021-07-23] MEDS: aspirin 81mg, enteric-coated 1 TAB TABLET.DR PO SCH (09:17)
[2021-07-23] MEDS: metoprolol succinate 25mg (24-HOUR) SR. Tablet PO SCH (09:17)
[2021-07-23] MEDS: iron polysaccharide complex 150mg capsule PO SCH (09:18)
[2021-07-23] MEDS: lactobacillus rhamnosus 10,000 MMU CELLS/CAPSULE PO SCH ×2 (09:18→20:00)
[2021-07-23] MEDS: divalproex 250mg tablet, delayed-release PO SCH ×2 (09:18→20:02)
[2021-07-23] MEDS: heparin, porcine 5000 units/ml vial SQ SCH ×2 (09:19→20:02)
[2021-07-23 11:00] VITALS: BP 98/45
[2021-07-23] MEDS: tamsulosin 0.4mg capsule PO SCH (13:06)
[2021-07-23] MEDS: thiamine 100mg tablet PO SCH (13:07)
[2021-07-23 15:00] VITALS: BP 97/43
[2021-07-23] MEDS: primidone 50mg tablet PO SCH (16:32)
[2021-07-23 18:00] VITALS: BP 101/41
--- NOTE | 2021-07-23 19:16 | NUR ---
Problems reprioritized. Patient report given, questions answered & plan of care reviewed with ethel milner. Addendum: 07/23/21 at 1916 by Alba Sanchez RN Amended: Links added.
[2021-07-23] MEDS: QUEtiapine 25mg tablet PO SCH (20:00)
--- NOTE | 2021-07-23 20:01 | NUR ---
Mr Brown requested PRN pain medication. These were to be given at the same time as HS meds. At this time he requested to take pain pills separately. He stated that he would take the rest of his medications immediately following these. When he was taking the pain pills he was noted to be slipping one of the pills into a fracture paalfox that he was using for storage on his bed. When the palafox was checked by this sheet writer one of his pain pills was noted to be in the palafox. He stated that he takes one and then waits 2.5 hours to take the other one. He was informed that this was not acceptable. He then took both pills. These were immediately followed by the rest of his HS medications.
[2021-07-23 22:00] VITALS: BP 98/48
[2021-07-24] VITALS (7 sets, daily range): BP systolic 80–122; BP diastolic 41–69
[2021-07-24] MEDS: HYDROcodone/acetaminophen 10/325mg tab PO PRN ×4 (03:29→19:46)
--- NOTE | 2021-07-24 05:45 | NUR ---
Mr. Spencer has been assessed as indicated. Veracious appetite continues. He has successfully been treated for pain x2 this shift. He continues to use the condom catheter successfully. No seizure activity has been noted. He is presently resting quietly.
--- NOTE | 2021-07-24 06:15 | NUR ---
Problems reprioritized. Patient report given, questions answered & plan of care reviewed with Deena KUMAR.
[2021-07-24 06:47] LABS: BASOPHILS # (AUTO) 0.1 X10'3 (0-0.2); BASOPHILS % (AUTO) 1.1 % (0-1); EOSINOPHILS # (AUTO) 0.2 X10'3 (0-0.9); EOSINOPHILS % (AUTO) 3.1 % (0-6); HEMATOCRIT 27.8 % (42.0-52.0); HEMOGLOBIN 9.4 g/dl (14.0-17.9); LYMPHOCYTES # (AUTO) 2.1 X10'3 (1.1-4.8); LYMPHOCYTES % (AUTO) 43.1 % (21-51); MEAN CORPUSCULAR HEMOGLOBIN 30.4 PG (27.0-31.0); MEAN CORPUSCULAR VOLUME 89.6 FL (78-98); MEAN PLATELET VOLUME 7.8 FL (7.4-10.4); MONOCYTES # (AUTO) 0.7 X10'3 (0-0.9); MONOCYTES % (AUTO) 13.1 % (2-12); NEUTROPHILS % (AUTO) 39.6 % (42-75); PLATELET COUNT 231 X10'3 (140-440)
[2021-07-24 07:16] LABS: ALANINE AMINOTRANSFERASE 16 U/L (12-78); ALBUMIN 2.6 G/DL (3.4-5.0); ALBUMIN/GLOBULIN RATIO 0.8 (1.1-1.5); ALKALINE PHOSPHATASE 75 IU/L (46-116); ANION GAP 4 (8-16); ASPARTATE AMINO TRANSFERASE 13 U/L (10-37); BILIRUBIN,TOTAL 0.2 MG/DL (0.1-1.0); BLOOD UREA NITROGEN 38 MG/DL (7-18); BUN/CREATININE RATIO 39.6 (5.4-32.0); CALCIUM 8.5 MG/DL (8.5-10.1); CHLORIDE 96 MMOL/L (99-107); CREATININE 0.96 MG/DL (0.60-1.10); GLUCOSE 78 MG/DL (70-104); MAGNESIUM 1.6 MG/DL (1.5-2.4); PHOSPHORUS 3.9 MG/DL (2.3-4.5); POTASSIUM 4.6 MMOL/L (3.5-5.1); SODIUM 129 MMOL/L (135-145); TOTAL CARBON DIOXIDE 29.3 MMOL/L (24-32); TOTAL PROTEIN 5.8 G/DL (6.4-8.2); eGFR 77 ML/MIN
[2021-07-24] MEDS: folic acid 1mg tablet PO SCH (07:41)
[2021-07-24] MEDS: pantoprazole 40mg Tablet.DR PO SCH (07:41)
[2021-07-24] MEDS: aspirin 81mg, enteric-coated 1 TAB TABLET.DR PO SCH (07:41)
[2021-07-24] MEDS: divalproex 250mg tablet, delayed-release PO SCH ×2 (07:42→20:44)
[2021-07-24] MEDS: thiamine 100mg tablet PO SCH (07:42)
[2021-07-24] MEDS: gabapentin 100mg capsule PO SCH ×3 (07:42→20:40)
[2021-07-24] MEDS: lactobacillus rhamnosus 10,000 MMU CELLS/CAPSULE PO SCH ×2 (07:42→20:40)
[2021-07-24] MEDS: tamsulosin 0.4mg capsule PO SCH (07:42)
[2021-07-24] MEDS: iron polysaccharide complex 150mg capsule PO SCH (07:43)
[2021-07-24] MEDS: primidone 50mg tablet PO SCH (07:43)
[2021-07-24] MEDS: heparin, porcine 5000 units/ml vial SQ SCH ×2 (07:44→20:41)
[2021-07-24] MEDS: metoprolol succinate 25mg (24-HOUR) SR. Tablet PO SCH (08:00)
[2021-07-24] MEDS: lactose-reduced food (Ensure High Protein) 237ml bottle PO SCH (08:00)
[2021-07-24] MEDS: K and/or MAG REPLACEMENT MC SCH ×2 (08:00→19:19)
[2021-07-24] MEDS: NUT.TX.IMPAIRED DIGEST FXN (Ensure Clear) 237 ML PO SCH (17:52)
[2021-07-24] MEDS: JUVEN Smoothie Arginine/Glut./Ca2+Bmb (Juven 19.3pkt) 240ml cup PO SCH (17:52)
--- NOTE | 2021-07-24 18:51 | NUR ---
REPORT GIVEN BACK TO ANTONINO KUMAR. ALL QUESTIONS ANSWERED.
[2021-07-24] MEDS: QUEtiapine 25mg tablet PO SCH (20:40)
[2021-07-24] MEDS: sennosides/docusate sodium tablet PO SCH (20:44)
[2021-07-25] MEDS: HYDROcodone/acetaminophen 10/325mg tab PO PRN ×4 (00:34→18:36)
--- NOTE | 2021-07-25 05:45 | NUR ---
Mr Spencer has been asssessed as indicated. He has been successfully treated for painx2. He has been provided a mild laxative for complaint of constipation. He has only passed small hard pieces of stool thus far. He continues to use condom cath successfully. He is presently resting quietly and will continue to be monitored
--- NOTE | 2021-07-25 06:26 | NUR ---
Problems reprioritized. Patient report given, questions answered & plan of care reviewed with RADHA KUMAR.
--- NOTE | 2021-07-25 06:28 | NUR ---
Patient in room PCU 3014. I have received report from STACY Huntley and had the opportunity to ask questions and assume patient care.
[2021-07-25 06:56] VITALS: BP 135/75
[2021-07-25] MEDS: K and/or MAG REPLACEMENT MC SCH ×2 (08:00→19:59)
[2021-07-25] MEDS: NUT.TX.IMPAIRED DIGEST FXN (Ensure Clear) 237 ML PO SCH ×3 (08:00→17:58)
[2021-07-25] MEDS: lactose-reduced food (Ensure High Protein) 237ml bottle PO SCH (08:00)
[2021-07-25] MEDS: thiamine 100mg tablet PO SCH (08:07)
[2021-07-25] MEDS: primidone 50mg tablet PO SCH (08:07)
[2021-07-25] MEDS: tamsulosin 0.4mg capsule PO SCH (08:07)
[2021-07-25] MEDS: aspirin 81mg, enteric-coated 1 TAB TABLET.DR PO SCH (08:08)
[2021-07-25] MEDS: folic acid 1mg tablet PO SCH (08:08)
[2021-07-25] MEDS: lactobacillus rhamnosus 10,000 MMU CELLS/CAPSULE PO SCH ×2 (08:08→19:56)
[2021-07-25] MEDS: metoprolol succinate 25mg (24-HOUR) SR. Tablet PO SCH (08:08)
[2021-07-25] MEDS: pantoprazole 40mg Tablet.DR PO SCH (08:08)
[2021-07-25] MEDS: gabapentin 100mg capsule PO SCH ×3 (08:08→19:56)
[2021-07-25] MEDS: heparin, porcine 5000 units/ml vial SQ SCH ×2 (08:09→19:57)
[2021-07-25] MEDS: iron polysaccharide complex 150mg capsule PO SCH (08:09)
[2021-07-25] MEDS: divalproex 250mg tablet, delayed-release PO SCH ×2 (08:09→19:56)
[2021-07-25] MEDS: JUVEN Smoothie Arginine/Glut./Ca2+Bmb (Juven 19.3pkt) 240ml cup PO SCH ×2 (08:16→17:57)
--- NOTE | 2021-07-25 10:25 | NUR ---
Patient appears to be resting comfortably with eyes closed, hat pulled down over head, respirations even and unlabored. When he was awaken for wound care dressing changes pt mumbled under his breath "uh, just woke me up again." Patient allowed for wound dressing changes to be completed and asked "can you let physical therapy know that I'm not feeling well today and I want to sleep?" When asked patient what he meant by he was not feeling well today patient stated he "just wanted to sleep today. Please, I don't want to be bothered." Patient then assisted in repositioning for comfort. Will continue to monitor.
[2021-07-25 11:21] VITALS: BP 101/50
[2021-07-25 15:39] VITALS: BP 106/53
--- NOTE | 2021-07-25 17:35 | NUR ---
Patient reports he has had a total of 3 BM today and does not feel constipated therefore refusing to have M.O.M but states when he did have BM they were hard and painful. Patient states, "the stool softeners will kick in. I don't need any laxatives."
[2021-07-25 18:00] VITALS: BP 104/30
--- NOTE | 2021-07-25 18:13 | NUR ---
Problems reprioritized. Patient report given, questions answered & plan of care reviewed with STACY Huntley.
[2021-07-25] MEDS: QUEtiapine 25mg tablet PO SCH (19:56)
[2021-07-25] MEDS: sennosides/docusate sodium tablet PO SCH (19:56)
[2021-07-25 22:00] VITALS: BP 87/35
[2021-07-26] VITALS (7 sets, daily range): BP systolic 82–116; BP diastolic 36–49
[2021-07-26] MEDS: HYDROcodone/acetaminophen 10/325mg tab PO PRN ×4 (02:51→19:36)
--- NOTE | 2021-07-26 05:35 | NUR ---
Mr. Beatty has been assessed as indicated. He has successfully been treated for Left knee pain x2 this shift. He has not had a BM but he successfully uses a condom cath to void. He has voided adequate amounts. He has not been out of the bed and it is difficult to encourage him to reposition. He has had no noted seizure activity this shift and is in no noted respiratory distress. He is resting quietly at this time
[2021-07-26] MEDS: K and/or MAG REPLACEMENT MC SCH ×2 (08:00→19:38)
[2021-07-26] MEDS: metoprolol succinate 25mg (24-HOUR) SR. Tablet PO SCH (08:00)
[2021-07-26] MEDS: lactobacillus rhamnosus 10,000 MMU CELLS/CAPSULE PO SCH ×2 (08:18→21:44)
[2021-07-26] MEDS: pantoprazole 40mg Tablet.DR PO SCH (08:20)
[2021-07-26] MEDS: gabapentin 100mg capsule PO SCH ×3 (08:20→21:41)
[2021-07-26] MEDS: divalproex 250mg tablet, delayed-release PO SCH ×2 (08:20→21:45)
[2021-07-26] MEDS: aspirin 81mg, enteric-coated 1 TAB TABLET.DR PO SCH (08:21)
[2021-07-26] MEDS: primidone 50mg tablet PO SCH (08:21)
[2021-07-26] MEDS: thiamine 100mg tablet PO SCH (08:21)
[2021-07-26] MEDS: tamsulosin 0.4mg capsule PO SCH (08:21)
[2021-07-26] MEDS: folic acid 1mg tablet PO SCH (08:21)
[2021-07-26] MEDS: heparin, porcine 5000 units/ml vial SQ SCH ×2 (08:23→21:41)
[2021-07-26] MEDS: JUVEN Smoothie Arginine/Glut./Ca2+Bmb (Juven 19.3pkt) 240ml cup PO SCH ×2 (08:24→18:07)
[2021-07-26] MEDS: NUT.TX.IMPAIRED DIGEST FXN (Ensure Clear) 237 ML PO SCH ×3 (08:24→18:00)
[2021-07-26] MEDS: lactose-reduced food (Ensure High Protein) 237ml bottle PO SCH (08:24)
[2021-07-26] MEDS: iron polysaccharide complex 150mg capsule PO SCH (08:24)
--- NOTE | 2021-07-26 08:28 | NUR ---
Patient present B/P 87/44. Notified the provider. Hold the dose metropolol 12.5
[2021-07-26] MEDS: sennosides/docusate sodium tablet PO SCH (21:41)
[2021-07-26] MEDS: QUEtiapine 25mg tablet PO SCH (21:41)
[2021-07-27] MEDS: HYDROcodone/acetaminophen 10/325mg tab PO PRN ×4 (01:54→19:42)
[2021-07-27 02:00] VITALS: BP 78/31
--- NOTE | 2021-07-27 05:45 | NUR ---
Mr Brown has been assessed as indicated. He has been successfully treated for pain 2x this shift. He has no had a BM and continues to successfully use condom catheter to void. he states that he is awaiting placement at Rehab facility and is compliant with this plan. He remains both pleasant and cooperative and is resting quietly at this time.
[2021-07-27 06:00] VITALS: BP 92/40
--- NOTE | 2021-07-27 06:30 | NUR ---
Problems reprioritized. Patient report given, questions answered & plan of care reviewed with SANDI Pozo
[2021-07-27] MEDS: K and/or MAG REPLACEMENT MC SCH ×2 (08:00→19:53)
[2021-07-27] MEDS: metoprolol succinate 25mg (24-HOUR) SR. Tablet PO SCH (08:00)
[2021-07-27] MEDS: thiamine 100mg tablet PO SCH (08:02)
[2021-07-27] MEDS: lactobacillus rhamnosus 10,000 MMU CELLS/CAPSULE PO SCH ×2 (08:02→19:43)
[2021-07-27] MEDS: gabapentin 100mg capsule PO SCH ×3 (08:02→20:12)
[2021-07-27] MEDS: primidone 50mg tablet PO SCH (08:02)
[2021-07-27] MEDS: tamsulosin 0.4mg capsule PO SCH (08:03)
[2021-07-27] MEDS: pantoprazole 40mg Tablet.DR PO SCH (08:04)
[2021-07-27] MEDS: folic acid 1mg tablet PO SCH (08:04)
[2021-07-27] MEDS: aspirin 81mg, enteric-coated 1 TAB TABLET.DR PO SCH (08:04)
[2021-07-27] MEDS: iron polysaccharide complex 150mg capsule PO SCH (08:04)
[2021-07-27] MEDS: JUVEN Smoothie Arginine/Glut./Ca2+Bmb (Juven 19.3pkt) 240ml cup PO SCH ×2 (08:05→17:44)
[2021-07-27] MEDS: divalproex 250mg tablet, delayed-release PO SCH ×2 (08:05→19:43)
[2021-07-27] MEDS: lactose-reduced food (Ensure High Protein) 237ml bottle PO SCH (08:05)
[2021-07-27] MEDS: NUT.TX.IMPAIRED DIGEST FXN (Ensure Clear) 237 ML PO SCH ×3 (08:05→18:00)
[2021-07-27] MEDS: heparin, porcine 5000 units/ml vial SQ SCH ×2 (08:06→19:39)
[2021-07-27 11:00] VITALS: BP 90/46
[2021-07-27 15:00] VITALS: BP 108/39
[2021-07-27 18:00] VITALS: BP 120/67
[2021-07-27] MEDS: QUEtiapine 25mg tablet PO SCH (20:12)
[2021-07-27] MEDS: sennosides/docusate sodium tablet PO SCH (20:12)
[2021-07-27 22:00] VITALS: BP 88/44
[2021-07-28 02:00] VITALS: BP 103/42
[2021-07-28] MEDS: HYDROcodone/acetaminophen 10/325mg tab PO PRN ×4 (05:47→21:28)
[2021-07-28 06:00] VITALS: BP 128/56
[2021-07-28 06:09] LABS: BASOPHILS # (AUTO) 0.1 X10'3 (0-0.2); BASOPHILS % (AUTO) 1.1 % (0-1); EOSINOPHILS # (AUTO) 0.3 X10'3 (0-0.9); HEMATOCRIT 28.9 % (42.0-52.0); HEMOGLOBIN 9.8 g/dl (14.0-17.9); LYMPHOCYTES # (AUTO) 2.3 X10'3 (1.1-4.8); LYMPHOCYTES % (AUTO) 40.5 % (21-51); MEAN CORPUSCULAR HEMOGLOBIN 30.4 PG (27.0-31.0); MEAN CORPUSCULAR HGB CONC 33.9 g/dL (33.0-36.5); MEAN CORPUSCULAR VOLUME 89.6 FL (78-98); MEAN PLATELET VOLUME 7.5 FL (7.4-10.4); MONOCYTES # (AUTO) 0.5 X10'3 (0-0.9); MONOCYTES % (AUTO) 8.7 % (2-12); NEUTROPHILS # (AUTO) 2.6 X10'3 (1.8-7.7); NEUTROPHILS % (AUTO) 44.7 % (42-75); PLATELET COUNT 278 X10'3 (140-440); RED BLOOD COUNT 3.22 X10'6 (4.70-6.10); RED CELL DISTRIBUTION WIDTH 16.9 % (11.5-14.5); WHITE BLOOD COUNT 5.7 X10'3 (4.5-11.0)
[2021-07-28 06:10] LABS: ALBUMIN 2.7 G/DL (3.4-5.0); ANION GAP 5 (8-16); BLOOD UREA NITROGEN 29 MG/DL (7-18); BUN/CREATININE RATIO 36.7 (5.4-32.0); CHLORIDE 95 MMOL/L (99-107); CREATININE 0.79 MG/DL (0.60-1.10); GLUCOSE 94 MG/DL (70-104); POTASSIUM 4.6 MMOL/L (3.5-5.1); SODIUM 129 MMOL/L (135-145); TOTAL CARBON DIOXIDE 28.8 MMOL/L (24-32); eGFR > 90 ML/MIN
[2021-07-28] MEDS: gabapentin 100mg capsule PO SCH ×3 (07:54→20:54)
[2021-07-28] MEDS: divalproex 250mg tablet, delayed-release PO SCH ×2 (07:54→20:55)
[2021-07-28] MEDS: lactobacillus rhamnosus 10,000 MMU CELLS/CAPSULE PO SCH ×2 (07:54→20:55)
[2021-07-28] MEDS: folic acid 1mg tablet PO SCH (07:54)
[2021-07-28] MEDS: pantoprazole 40mg Tablet.DR PO SCH (07:54)
[2021-07-28] MEDS: thiamine 100mg tablet PO SCH (07:55)
[2021-07-28] MEDS: iron polysaccharide complex 150mg capsule PO SCH (07:55)
[2021-07-28] MEDS: primidone 50mg tablet PO SCH (07:55)
[2021-07-28] MEDS: metoprolol succinate 25mg (24-HOUR) SR. Tablet PO SCH (07:55)
[2021-07-28] MEDS: aspirin 81mg, enteric-coated 1 TAB TABLET.DR PO SCH (07:55)
[2021-07-28] MEDS: tamsulosin 0.4mg capsule PO SCH (07:55)
[2021-07-28] MEDS: heparin, porcine 5000 units/ml vial SQ SCH ×2 (07:56→20:55)
[2021-07-28] MEDS: K and/or MAG REPLACEMENT MC SCH ×2 (08:00→20:00)
[2021-07-28] MEDS: JUVEN Smoothie Arginine/Glut./Ca2+Bmb (Juven 19.3pkt) 240ml cup PO SCH (08:03)
[2021-07-28] MEDS: lactose-reduced food (Ensure High Protein) 237ml bottle PO SCH (08:04)
[2021-07-28] MEDS: NUT.TX.IMPAIRED DIGEST FXN (Ensure Clear) 237 ML PO SCH ×3 (08:04→18:00)
--- NOTE | 2021-07-28 10:18 | NUR ---
Reassessment: Pt PO intake 100% avg of regular meals and 88% avg PO intake of supplements since 07/22, meeting nutritional needs. Noted ensure clear ordered 07/24 per MD, however,not nutritionally indicated at this time; OLIVIER d/w RN recommendation to d/c ensure clear if MD agreeable. LBM 07/25, receiving routine bowel care. No nutrition interventions at this time; will continue to monitor. Recs: 1. Continue regular diet as tolerated 2. Continue Alexandre smoothies BIDBD 3. Continue Ensure HP WL per pt request 4. Discontinue ensure clear if MD agreeable 5. Routine Bowel care per rx 6. Scaled wts this admit, subsequent weekly wt Addendum: 07/28/21 at [address] Amended: Links added. Addendum: 07/28/21 at [address] I have reviewed note by quality internship
[2021-07-28 11:00] VITALS: BP 102/44
--- NOTE | 2021-07-28 12:00 | NUR ---
PATIENT WAS DISCHARGE HOME ALERT AND ORIENT. DISCHARGE INSTRUCTION DISCUSSED WITH THE PATIENT AND . Addendum: 07/28/21 at 1240 by Arslan Oconnor RN WRONG PATIENT
[2021-07-28 15:00] VITALS: BP 91/49
[2021-07-28 18:00] VITALS: BP 103/44
[2021-07-28] MEDS: QUEtiapine 25mg tablet PO SCH (20:55)
[2021-07-28] MEDS: sennosides/docusate sodium tablet PO SCH (20:55)
[2021-07-28 22:00] VITALS: BP 82/42
[2021-07-29 02:00] VITALS: BP 108/53
[2021-07-29] MEDS: HYDROcodone/acetaminophen 10/325mg tab PO PRN ×2 (02:57→08:36)
[2021-07-29 06:00] VITALS: BP 95/43
[2021-07-29] MEDS: JUVEN Smoothie Arginine/Glut./Ca2+Bmb (Juven 19.3pkt) 240ml cup PO SCH ×2 (07:30→17:38)
[2021-07-29] MEDS: lactose-reduced food (Ensure High Protein) 237ml bottle PO SCH (08:00)
[2021-07-29] MEDS: K and/or MAG REPLACEMENT MC SCH ×2 (08:00→18:50)
[2021-07-29] MEDS: NUT.TX.IMPAIRED DIGEST FXN (Ensure Clear) 237 ML PO SCH ×3 (08:00→18:50)
[2021-07-29] MEDS: pantoprazole 40mg Tablet.DR PO SCH (08:01)
[2021-07-29] MEDS: gabapentin 100mg capsule PO SCH ×3 (08:01→20:16)
[2021-07-29] MEDS: metoprolol succinate 25mg (24-HOUR) SR. Tablet PO SCH (08:01)
[2021-07-29] MEDS: thiamine 100mg tablet PO SCH (08:01)
[2021-07-29] MEDS: primidone 50mg tablet PO SCH (08:01)
[2021-07-29] MEDS: divalproex 250mg tablet, delayed-release PO SCH ×2 (08:02→20:16)
[2021-07-29] MEDS: aspirin 81mg, enteric-coated 1 TAB TABLET.DR PO SCH (08:02)
[2021-07-29] MEDS: tamsulosin 0.4mg capsule PO SCH (08:02)
[2021-07-29] MEDS: iron polysaccharide complex 150mg capsule PO SCH (08:02)
[2021-07-29] MEDS: folic acid 1mg tablet PO SCH (08:02)
[2021-07-29] MEDS: lactobacillus rhamnosus 10,000 MMU CELLS/CAPSULE PO SCH ×2 (08:02→20:16)
[2021-07-29] MEDS: heparin, porcine 5000 units/ml vial SQ SCH ×2 (08:03→20:17)
[2021-07-29 11:00] VITALS: BP 105/48
[2021-07-29] MEDS: HYDROcodone/acetaminophen 5mg/325mg tablet PO PRN ×2 (13:50→18:52)
[2021-07-29 15:00] VITALS: BP 91/45
[2021-07-29 18:00] VITALS: BP 132/53
--- NOTE | 2021-07-29 18:57 | NUR ---
Patient in room PCU 3014. I have received report from and had the opportunity to ask questions and assume patient care. Arslan KUMAR
[2021-07-29] MEDS: QUEtiapine 25mg tablet PO SCH (20:16)
[2021-07-29] MEDS: sennosides/docusate sodium tablet PO SCH (20:16)
[2021-07-29 22:00] VITALS: BP 94/43
[2021-07-30 02:00] VITALS: BP 116/39
[2021-07-30] MEDS: HYDROcodone/acetaminophen 5mg/325mg tablet PO PRN ×2 (02:17→07:31)
[2021-07-30 06:00] VITALS: BP 110/5
[2021-07-30] MEDS: JUVEN Smoothie Arginine/Glut./Ca2+Bmb (Juven 19.3pkt) 240ml cup PO SCH (07:30)
[2021-07-30] MEDS: iron polysaccharide complex 150mg capsule PO SCH (07:30)
[2021-07-30] MEDS: lactobacillus rhamnosus 10,000 MMU CELLS/CAPSULE PO SCH (07:30)
[2021-07-30] MEDS: thiamine 100mg tablet PO SCH (07:30)
[2021-07-30] MEDS: pantoprazole 40mg Tablet.DR PO SCH (07:30)
[2021-07-30] MEDS: tamsulosin 0.4mg capsule PO SCH (07:30)
[2021-07-30] MEDS: heparin, porcine 5000 units/ml vial SQ SCH (07:30)
[2021-07-30] MEDS: primidone 50mg tablet PO SCH (07:31)
[2021-07-30] MEDS: divalproex 250mg tablet, delayed-release PO SCH (07:31)
[2021-07-30] MEDS: aspirin 81mg, enteric-coated 1 TAB TABLET.DR PO SCH (07:31)
[2021-07-30] MEDS: metoprolol succinate 25mg (24-HOUR) SR. Tablet PO SCH (07:31)
[2021-07-30] MEDS: gabapentin 100mg capsule PO SCH (07:32)
[2021-07-30] MEDS: folic acid 1mg tablet PO SCH (08:00)
[2021-07-30] MEDS: K and/or MAG REPLACEMENT MC SCH (08:00)
[2021-07-30] MEDS: lactose-reduced food (Ensure High Protein) 237ml bottle PO SCH (08:00)
[2021-07-30] MEDS: NUT.TX.IMPAIRED DIGEST FXN (Ensure Clear) 237 ML PO SCH (08:00)
[2021-07-30] MEDS ORDERED: HYDR-3965 PO ×2 (16:47→16:50)
== END 2021-07-30 11:20 | disposition home health service (06) | DRG 871 ==
LOC: ER 14:05 → ED HOLD 20:57 → MED 3N 07-11 23:20 → PCU 3S 07-23 07:48
PROVIDERS: ADMIT Internal Medicine; ATTEND Family Medicine
PROC: B32T1ZZ Computerized Tomography (CT Scan) of Left Pulmonary Artery using Low Osmolar Contrast (ICD-10-PCS; principal; 2021-07-10)
PROC: B3201ZZ Computerized Tomography (CT Scan) of Thoracic Aorta using Low Osmolar Contrast (ICD-10-PCS; 2021-07-10)
PROC: B32S1ZZ Computerized Tomography (CT Scan) of Right Pulmonary Artery using Low Osmolar Contrast (ICD-10-PCS; 2021-07-10)
DX: A41.9 Sepsis, unspecified organism (principal); J69.0 Pneumonitis due to inhalation of food and vomit; G92.9 Unspecified toxic encephalopathy; S72.402A Unspecified fracture of lower end of left femur, initial encounter for closed fracture; E87.2 Acidosis; E87.1 Hypo-osmolality and hyponatremia; I48.91 Unspecified atrial fibrillation; Z20.822 Contact with and (suspected) exposure to COVID-19; J40 Bronchitis, not specified as acute or chronic; F03.90 Unspecified dementia, unspecified severity, without behavioral disturbance, psychotic disturbance, mood disturbance, and anxiety; D64.9 Anemia, unspecified; G40.909 Epilepsy, unspecified, not intractable, without status epilepticus; I10 Essential (primary) hypertension; E87.6 Hypokalemia; E86.0 Dehydration; S31.000A Unspecified open wound of lower back and pelvis without penetration into retroperitoneum, initial encounter; T75.89XA Other specified effects of external causes, initial encounter; X58.XXXA Exposure to other specified factors, initial encounter; Y93.89 Activity, other specified; Y92.89 Other specified places as the place of occurrence of the external cause; Z79.899 Other long term (current) drug therapy; Y99.8 Other external cause status; Z79.82 Long term (current) use of aspirin
CPT/HCPCS: 36415; 70450; 71045; 71275; 73700; 80048; 80053; 80164; 80305; 80320; 81003; 82140; 83605; 83735; 83880; 84100; 84145; 84484; 85007; 85025; 85379; 87040; 87081; 87635; 92508; 92616; 93005; 93306; 96365; 96366; 96367; 96372; 96375; 96376; 97116; 97161; 97530; 97535; 99285; C9803; G0378; J1200; J1630; J1644; J1650; J1956; J2270; J2405; J2560; J3475; J3490; J7030; J7050; Q9967

== ENCOUNTER 2021-09-11 13:28 | Inpatient (IN) | payer BC, MEDICAID ==
[~2021-09-11] VITALS: Ht 182.9 cm; Wt 72.7 kg
[~2021-09-11 13:28] MED LIST: ASCO500T20 PO; ASPI-1397 PO; BACL10TA2 PO; CHOL100017 PO; COLL30OI TOP; DIVA-51 PO; DOCU250C34 PO; FLO0.4C PO; FOLI0.4T14 PO; GABA-530 PO; HYDR-3964 PO; IRON150C8 PO; METO25TA6 PO; PANT40TA54 PO; PRIM50TA5 PO; QUET25TA36 PO; ROSU10TA28 PO; SENN-263 PO; THIA100T66 PO; ZINC50TA15 PO
[2021-09-11] MEDS ORDERED: naloxone 0.4 mg/ml inj IV PRN (13:55)
[2021-09-11 14:13] LABS: BASOPHILS % (AUTO) 0.4 % (0-1); EOSINOPHILS # (AUTO) 0.1 X10'3 (0-0.9); EOSINOPHILS % (AUTO) 0.7 % (0-6); HEMATOCRIT 29.8 % (42.0-52.0); HEMOGLOBIN 10.4 g/dl (14.0-17.9); LYMPHOCYTES # (AUTO) 1.1 X10'3 (1.1-4.8); LYMPHOCYTES % (AUTO) 12.1 % (21-51); MEAN CORPUSCULAR HEMOGLOBIN 32.2 PG (27.0-31.0); MEAN CORPUSCULAR HGB CONC 34.8 g/dL (33.0-36.5); MEAN CORPUSCULAR VOLUME 92.3 FL (78-98); MONOCYTES # (AUTO) 0.8 X10'3 (0-0.9); MONOCYTES % (AUTO) 9.5 % (2-12); NEUTROPHILS # (AUTO) 6.8 X10'3 (1.8-7.7); NEUTROPHILS % (AUTO) 77.3 % (42-75); PLATELET COUNT 212 X10'3 (140-440); RED BLOOD COUNT 3.22 X10'6 (4.70-6.10); RED CELL DISTRIBUTION WIDTH 16.3 % (11.5-14.5); WHITE BLOOD COUNT 8.8 X10'3 (4.5-11.0)
--- NOTE | 2021-09-11 14:21 | NUR ---
Patient to CT.
[2021-09-11 14:54] LABS: LACTIC SEPSIS 1.2 MMOL/L (0.4-2.0)
[2021-09-11] MEDS ORDERED: normal saline 1000ML IV soln IVB ONE (14:55)
[2021-09-11 15:29] LABS: ALANINE AMINOTRANSFERASE 25 U/L (12-78); ALBUMIN 3.3 G/DL (3.4-5.0); ALKALINE PHOSPHATASE 78 IU/L (46-116); AMMONIA < 10 UMOL/L (11-32); ASPARTATE AMINO TRANSFERASE 23 U/L (10-37); BLOOD UREA NITROGEN 15 MG/DL (7-18); CALCIUM 8.1 MG/DL (8.5-10.1); CREATININE 0.88 MG/DL (0.60-1.10); ETHANOL < 0.010 GM/DL (0.0-0.010); GLUCOSE 90 MG/DL (70-104); TOTAL CARBON DIOXIDE 26.8 MMOL/L (24-32); TOTAL PROTEIN 6.7 G/DL (6.4-8.2); eGFR 86 ML/MIN
[2021-09-11] MEDS ORDERED: acetaminophen 325mg tablet PO ONE (16:25)
[2021-09-11 16:49] LABS: CLARITY,URINE CLEAR (Clear); COLOR,URINE YELLOW (Yellow); GLUCOSE, URINE NEGATIVE (Neg); KETONES,URINE 15 mg/dl (Neg); LEUKOCYTE ESTERASE ,URINE NEGATIVE (Neg); OCCULT BLOOD,URINE TRACE-INTACT (Neg); PH,URINE 6.5 (4.8-8.0); PROTEIN,URINE 30 mg/dl (Neg)
[2021-09-11 16:52] LABS: NITRITES, URINE NEGATIVE (Neg); UA COLLECTION TYPE STRAIGHT CATH
[2021-09-11 16:56] LABS: WBC,URINE 0-4 /HPF (0-4)
[2021-09-11 16:57] LABS: BACTERIA,URINE NONE SEEN /HPF (Neg); MUCUS STRANDS FEW /LPF (Neg); RENAL CELLS, URINE FEW /HPF; SQUAMOUS EPITHELIAL CELL,UR NONE SEEN /LPF (FEW)
[2021-09-11 16:58] LABS: FINE GRANULAR CAST 0-3 /LPF (NEGATIVE); HYALINE CASTS 0-3 /LPF (NEGATIVE)
[2021-09-11] MEDS ORDERED: magnesium 2GM in 50ml NS 50 ML IV PRN (17:40)
[2021-09-11] MEDS ORDERED: potassium CL 10mEq/100ml bag 100 ML IV PRN (17:40)
[2021-09-11] MEDS ORDERED: ondansetron/PF 4mg/2ml inj IV PRN (17:40)
[2021-09-11] MEDS ORDERED: magnesium 4gm in 100ml NS 100 ML IV PRN (17:40)
[2021-09-11] MEDS: normal saline 1000ml 1,000 ML IV SCH (17:40)
[2021-09-11] MEDS ORDERED: potassium Cl 20 mEq SR tablet PO PRN (17:40)
[2021-09-11 18:49] LABS: URINE AMPHETAMINE SCREEN NEGATIVE (Neg); URINE BARBITUATE SCREEN NEGATIVE (Neg); URINE BENZODIAZEPINES SCREEN NEGATIVE (Neg); URINE CANNABINOID SCREEN POSITIVE (Neg); URINE COCAINE SCREEN NEGATIVE (Neg); URINE METHADONE SCREEN NEGATIVE (Neg); URINE OPIATE SCREEN POSITIVE (Neg); URINE PHENCYCLIDINE SCREEN NEGATIVE (Neg)
[2021-09-11 18:56] LABS: ANION GAP 8 (8-16); CHLORIDE 89 MMOL/L (99-107); POTASSIUM 3.4 MMOL/L (3.5-5.1); SODIUM 124 MMOL/L (135-145)
[2021-09-11 19:13] LABS: MAGNESIUM 1.1 MG/DL (1.5-2.4); POTASSIUM 3.3 MMOL/L (3.5-5.1)
[2021-09-11] MEDS: docusate sod 100mg capsule PO SCH (19:38)
[2021-09-11] MEDS: heparin, porcine 5000 units/ml vial SQ SCH (19:39)
[2021-09-11] MEDS: K and/or MAG REPLACEMENT MC SCH (19:45)
[2021-09-11] MEDS: potassium Cl 20 mEq SR tablet PO PRN ×2 (19:46→23:22)
[2021-09-11 22:00] VITALS: BP 80/49
[2021-09-11 23:16] VITALS: BP 97/71
[2021-09-11] MEDS: magnesium Cl slow-release 64mg tablet PO PRN (23:22)
[2021-09-12 02:00] VITALS: BP 102/56
[2021-09-12] MEDS: normal saline 1000ml 1,000 ML IV SCH ×3 (05:00→23:40)
[2021-09-12 06:30] VITALS: BP 133/69
[2021-09-12 06:35] LABS: BASOPHILS % (AUTO) 0.4 % (0-1); EOSINOPHILS # (AUTO) 0.1 X10'3 (0-0.9); EOSINOPHILS % (AUTO) 1.8 % (0-6); HEMATOCRIT 27.4 % (42.0-52.0); HEMOGLOBIN 9.7 g/dl (14.0-17.9); LYMPHOCYTES # (AUTO) 1.5 X10'3 (1.1-4.8); LYMPHOCYTES % (AUTO) 24.2 % (21-51); MEAN CORPUSCULAR HEMOGLOBIN 32.5 PG (27.0-31.0); MEAN CORPUSCULAR HGB CONC 35.3 g/dL (33.0-36.5); MEAN CORPUSCULAR VOLUME 92.1 FL (78-98); MEAN PLATELET VOLUME 7.5 FL (7.4-10.4); MONOCYTES # (AUTO) 0.7 X10'3 (0-0.9); MONOCYTES % (AUTO) 12.1 % (2-12); NEUTROPHILS # (AUTO) 3.8 X10'3 (1.8-7.7); NEUTROPHILS % (AUTO) 61.5 % (42-75); PLATELET COUNT 201 X10'3 (140-440); RED BLOOD COUNT 2.97 X10'6 (4.70-6.10); RED CELL DISTRIBUTION WIDTH 16.5 % (11.5-14.5); WHITE BLOOD COUNT 6.1 X10'3 (4.5-11.0)
[2021-09-12 06:39] LABS: ALBUMIN 2.9 G/DL (3.4-5.0); ANION GAP 12 (8-16); BLOOD UREA NITROGEN 12 MG/DL (7-18); BUN/CREATININE RATIO 17.6 (5.4-32.0); CALCIUM 7.9 MG/DL (8.5-10.1); CHLORIDE 98 MMOL/L (99-107); CHOL/HDL RATIO 1.9 (0.00-4.99); CHOLESTEROL 120 MG/DL (0-200); CREATININE 0.68 MG/DL (0.60-1.10); GLUCOSE 92 MG/DL (70-104); HDL CHOLESTEROL 64 MG/DL (35-60); LDL CHOLESTEROL 40 MG/DL (50-100); MAGNESIUM 1.1 MG/DL (1.5-2.4); POTASSIUM 3.3 MMOL/L (3.5-5.1); SODIUM 131 MMOL/L (135-145); TOTAL CARBON DIOXIDE 21.3 MMOL/L (24-32); TRIGLYCERIDES 71 MG/DL (20-135); eGFR > 90 ML/MIN
--- NOTE | 2021-09-12 06:39 | NUR ---
Patient in room MED 315. I have received report from STACY Quintero and had the opportunity to ask questions and assume patient care.
[2021-09-12] MEDS: K and/or MAG REPLACEMENT MC SCH ×2 (08:00→20:00)
[2021-09-12] MEDS: potassium Cl 20 mEq SR tablet PO PRN ×3 (08:20→20:17)
[2021-09-12] MEDS: magnesium Cl slow-release 64mg tablet PO PRN ×2 (08:21→13:52)
[2021-09-12] MEDS: docusate sod 100mg capsule PO SCH ×2 (08:22→20:17)
[2021-09-12] MEDS: heparin, porcine 5000 units/ml vial SQ SCH ×2 (08:24→20:17)
[2021-09-12] MEDS: acetaminophen 325mg tablet PO PRN (08:26)
[2021-09-12 10:00] VITALS: BP 125/73
[2021-09-12] MEDS: traMADol 50MG tablet PO PRN (11:37)
[2021-09-12 13:54] VITALS: BP 116/94
[2021-09-12] MEDS ORDERED: AMIT25TA9 PO (14:40)
[2021-09-12] MEDS ORDERED: MELO-102 PO (14:40)
[2021-09-12] MEDS ORDERED: DULO60CA65 PO (14:40)
[2021-09-12] MEDS ORDERED: ACET-2389 PO (14:40)
[2021-09-12] MEDS ORDERED: METO50TA16 PO (14:40)
[2021-09-12] MEDS ORDERED: METO-384 PO (14:40)
[2021-09-12] MEDS ORDERED: acetaminophen 325mg tablet PO PRN (17:30)
[2021-09-12 18:00] VITALS: BP 103/63
--- NOTE | 2021-09-12 18:41 | NUR ---
Problems reprioritized. Patient report given, questions answered & plan of care reviewed with STACY RAMIREZ.
[2021-09-12] MEDS ORDERED: digoxin 250mcg/ml 2ml ampule IV ONE (19:40)
--- NOTE | 2021-09-12 19:56 | NUR ---
Patient heart rate high, between 150 -165 beats per minute at rest, with A-Fib. The MD notified, Digoxin 0.5 mg IV given as per order. Patient with no chest pain, no distress noted, patient watching TV. Continue monitoring patient condition.
[2021-09-12] MEDS: atorvastatin 20mg tablet PO SCH (20:14)
[2021-09-12] MEDS: amitriptyline 25mg tablet PO SCH (20:18)
[2021-09-12] MEDS: metoprolol tartrate 50mg tablet PO SCH (20:19)
[2021-09-12] MEDS: aspirin 81mg, enteric-coated 1 TAB TABLET.DR PO SCH (20:19)
[2021-09-12] MEDS: pantoprazole 40mg Tablet.DR PO SCH (20:19)
[2021-09-12] MEDS: HYDROcodone/acetaminophen 5mg/325mg tablet PO PRN (20:28)
[2021-09-12 22:00] VITALS: BP 126/86
[2021-09-12] MEDS: primidone 50mg tablet PO SCH (22:09)
[2021-09-12] MEDS: divalproex 250mg tablet, delayed-release PO SCH (22:09)
[2021-09-13] MEDS: traMADol 50MG tablet PO PRN (01:48)
[2021-09-13 02:00] VITALS: BP 102/56
--- NOTE | 2021-09-13 06:00 | NUR ---
Patient in room MED 315. I have received report from STACY RAMIREZ, and had the opportunity to ask questions and assume patient care.
[2021-09-13 06:11] LABS: BASOPHILS % (AUTO) 0.6 % (0-1); EOSINOPHILS # (AUTO) 0.1 X10'3 (0-0.9); EOSINOPHILS % (AUTO) 1.8 % (0-6); HEMATOCRIT 29.2 % (42.0-52.0); HEMOGLOBIN 9.7 g/dl (14.0-17.9); LYMPHOCYTES # (AUTO) 2.2 X10'3 (1.1-4.8); LYMPHOCYTES % (AUTO) 31.1 % (21-51); MEAN CORPUSCULAR HEMOGLOBIN 31.8 PG (27.0-31.0); MEAN CORPUSCULAR HGB CONC 33.4 g/dL (33.0-36.5); MEAN CORPUSCULAR VOLUME 95.3 FL (78-98); MEAN PLATELET VOLUME 7.4 FL (7.4-10.4); MONOCYTES # (AUTO) 0.9 X10'3 (0-0.9); MONOCYTES % (AUTO) 12.3 % (2-12); NEUTROPHILS # (AUTO) 3.8 X10'3 (1.8-7.7); NEUTROPHILS % (AUTO) 54.2 % (42-75); PLATELET COUNT 206 X10'3 (140-440); RED BLOOD COUNT 3.06 X10'6 (4.70-6.10); RED CELL DISTRIBUTION WIDTH 16.6 % (11.5-14.5)
[2021-09-13 06:21] LABS: ALBUMIN 2.8 G/DL (3.4-5.0); ANION GAP -2 (8-16); BLOOD UREA NITROGEN 19 MG/DL (7-18); BUN/CREATININE RATIO 29.2 (5.4-32.0); CALCIUM 8.5 MG/DL (8.5-10.1); CHLORIDE 104 MMOL/L (99-107); CREATININE 0.65 MG/DL (0.60-1.10); GLUCOSE 81 MG/DL (70-104); MAGNESIUM 1.3 MG/DL (1.5-2.4); SODIUM 132 MMOL/L (135-145); TOTAL CARBON DIOXIDE 30.1 MMOL/L (24-32); eGFR > 90 ML/MIN
[2021-09-13 07:07] VITALS: BP 132/77
[2021-09-13] MEDS ORDERED: non-formulary drug (Metoprolol Succinate 1 TAB) PO SCH (08:00)
[2021-09-13] MEDS ORDERED: MELOXICAM 15 MG PO SCH (08:00)
[2021-09-13] MEDS: K and/or MAG REPLACEMENT MC SCH ×2 (08:00→19:47)
[2021-09-13] MEDS: normal saline 1000ml 1,000 ML IV SCH ×2 (08:11→19:47)
[2021-09-13] MEDS: duloxetine 30mg CAPSULE.DR PO SCH (08:12)
[2021-09-13] MEDS: docusate sod 100mg capsule PO SCH ×2 (08:12→20:29)
[2021-09-13] MEDS: magnesium Cl slow-release 64mg tablet PO PRN (08:13)
[2021-09-13] MEDS: primidone 50mg tablet PO SCH (08:13)
[2021-09-13] MEDS: metoprolol tartrate 50mg tablet PO SCH ×2 (08:14→20:28)
[2021-09-13] MEDS: aspirin 81mg, enteric-coated 1 TAB TABLET.DR PO SCH (08:15)
[2021-09-13] MEDS: pantoprazole 40mg Tablet.DR PO SCH (08:15)
[2021-09-13] MEDS: HYDROcodone/acetaminophen 5mg/325mg tablet PO PRN ×2 (08:18→16:56)
[2021-09-13] MEDS: divalproex 250mg tablet, delayed-release PO SCH ×2 (08:20→20:28)
[2021-09-13] MEDS: heparin, porcine 5000 units/ml vial SQ SCH ×2 (08:22→20:30)
--- NOTE | 2021-09-13 09:10 | NUR ---
Andrew consult: Pt admit dx recurrent falls and dementia per EMR. Pt w/ Andrew 12 and R lower extremity trace edema per EMR. Pt w/ two pressure ulcers per [facility] note: R lateral trochanter 1 cm x 1.4 cm, depth 0.1 cm stage two resolving and R lateral ankle 0.4 cm x 0.4 cm scabbed wound, both likely not significant enough to increase protein needs. Will continue to monitor. Addendum: 09/13/21 at [address] Amended: Links added. Addendum: 09/13/21 at [address] I have reviewed assessment by software development intern
[2021-09-13 10:00] VITALS: BP 128/76
[2021-09-13 14:00] VITALS: BP 118/98
--- NOTE | 2021-09-13 17:57 | NUR ---
PAGE SENT PAGER ID: [phone] MESSAGE: [id number], FRANCIEDARWIN WATSONY, HAS A "PT'S OWN MED" ORDER OF MELOXICAM THAT HE HASN'T BROUGHT IN, NOR DOES HE THINK ANYONE WILL BRING IT. COULD YOU PLEASE D/C MELOXICAM 15 MG? THANK YOU, SHUKRI .[id number]
[2021-09-13 18:00] VITALS: BP 157/66
--- NOTE | 2021-09-13 18:27 | NUR ---
Problems reprioritized. Patient report given, questions answered & plan of care reviewed with STACY RAMIREZ.
[2021-09-13] MEDS: atorvastatin 20mg tablet PO SCH (20:28)
[2021-09-13] MEDS: amitriptyline 25mg tablet PO SCH (20:29)
[2021-09-13 22:00] VITALS: BP 135/68
[2021-09-14 02:00] VITALS: BP 160/64
[2021-09-14] MEDS: HYDROcodone/acetaminophen 5mg/325mg tablet PO PRN ×3 (03:53→20:38)
[2021-09-14] MEDS: normal saline 1000ml 1,000 ML IV SCH ×2 (05:05→12:04)
[2021-09-14 05:44] LABS: BASOPHILS # (AUTO) 0.1 X10'3 (0-0.2); BASOPHILS % (AUTO) 0.9 % (0-1); EOSINOPHILS # (AUTO) 0.2 X10'3 (0-0.9); EOSINOPHILS % (AUTO) 2.6 % (0-6); HEMOGLOBIN 9.9 g/dl (14.0-17.9); LYMPHOCYTES # (AUTO) 1.7 X10'3 (1.1-4.8); MEAN CORPUSCULAR HGB CONC 34.1 g/dL (33.0-36.5); MEAN PLATELET VOLUME 7.2 FL (7.4-10.4); MONOCYTES # (AUTO) 0.9 X10'3 (0-0.9); MONOCYTES % (AUTO) 13.8 % (2-12); NEUTROPHILS # (AUTO) 3.9 X10'3 (1.8-7.7); NEUTROPHILS % (AUTO) 57.7 % (42-75); PLATELET COUNT 211 X10'3 (140-440); RED BLOOD COUNT 3.09 X10'6 (4.70-6.10); RED CELL DISTRIBUTION WIDTH 16.3 % (11.5-14.5); WHITE BLOOD COUNT 6.8 X10'3 (4.5-11.0)
[2021-09-14 05:57] LABS: ALBUMIN 2.8 G/DL (3.4-5.0); ANION GAP 5 (8-16); BLOOD UREA NITROGEN 13 MG/DL (7-18); BUN/CREATININE RATIO 23.2 (5.4-32.0); CALCIUM 8.5 MG/DL (8.5-10.1); CHLORIDE 97 MMOL/L (99-107); CREATININE 0.56 MG/DL (0.60-1.10); GLUCOSE 85 MG/DL (70-104); MAGNESIUM 1.1 MG/DL (1.5-2.4); POTASSIUM 4.6 MMOL/L (3.5-5.1); SODIUM 127 MMOL/L (135-145); TOTAL CARBON DIOXIDE 24.7 MMOL/L (24-32); eGFR > 90 ML/MIN
[2021-09-14 06:00] VITALS: BP 155/61
--- NOTE | 2021-09-14 06:39 | NUR ---
Patient in room MED 315. I have received report from STACY RAMIREZ, and had the opportunity to ask questions and assume patient care.
[2021-09-14] MEDS: K and/or MAG REPLACEMENT MC SCH ×2 (07:07→20:00)
[2021-09-14] MEDS: pantoprazole 40mg Tablet.DR PO SCH (08:23)
[2021-09-14] MEDS: metoprolol tartrate 50mg tablet PO SCH ×2 (08:26→20:39)
[2021-09-14] MEDS: magnesium Cl slow-release 64mg tablet PO PRN (08:27)
[2021-09-14] MEDS: aspirin 81mg, enteric-coated 1 TAB TABLET.DR PO SCH (08:27)
[2021-09-14] MEDS: primidone 50mg tablet PO SCH (08:27)
[2021-09-14] MEDS: divalproex 250mg tablet, delayed-release PO SCH ×2 (08:28→20:39)
[2021-09-14] MEDS: duloxetine 30mg CAPSULE.DR PO SCH (08:28)
[2021-09-14] MEDS: docusate sod 100mg capsule PO SCH ×2 (08:28→20:39)
[2021-09-14] MEDS: heparin, porcine 5000 units/ml vial SQ SCH ×2 (08:29→20:40)
--- NOTE | 2021-09-14 09:14 | NUR ---
PAGE SENT PAGER ID: [phone] MESSAGE: [phone], FRANCIE YOU, PT HASN'T BROUGHT HOME MEDS, HE DOESN'T THINK FAMILY WILL BE BRINGING IT. MAY WE DISCONTINUE? THANK YOU, SHUKRI [phone]
--- NOTE | 2021-09-14 09:15 | NUR ---
PAGE SENT PAGER ID: [phone] MESSAGE: 315b, FRANCIE YOU, PT HASN'T BROUGHT HOME MEDS, HE DOESN'T THINK FAMILY WILL BE BRINGING IT. MAY WE DISCONTINUE? THANK YOU, SHUKRI [phone]
[2021-09-14 15:00] VITALS: BP 149/65
[2021-09-14 15:53] LABS: ANION GAP 5 (8-16); BLOOD UREA NITROGEN 12 MG/DL (7-18); CALCIUM 8.3 MG/DL (8.5-10.1); CHLORIDE 95 MMOL/L (99-107); GLUCOSE 92 MG/DL (70-104); POTASSIUM 5.5 MMOL/L (3.5-5.1); SODIUM 127 MMOL/L (135-145); TOTAL CARBON DIOXIDE 26.9 MMOL/L (24-32); eGFR > 90 ML/MIN
[2021-09-14 18:00] VITALS: BP 141/60
--- NOTE | 2021-09-14 18:42 | NUR ---
Problems reprioritized. Patient report given, questions answered & plan of care reviewed with STACY RAMIREZ.
[2021-09-14] MEDS: amitriptyline 25mg tablet PO SCH (20:39)
[2021-09-14] MEDS: atorvastatin 20mg tablet PO SCH (20:39)
[2021-09-14 22:00] VITALS: BP 112/65
[2021-09-15] MEDS: normal saline 1000ml 1,000 ML IV SCH ×3 (01:40→21:40)
[2021-09-15 06:00] VITALS: BP 171/68
[2021-09-15 06:13] LABS: BASOPHILS # (AUTO) 0.1 X10'3 (0-0.2); BASOPHILS % (AUTO) 1.1 % (0-1); EOSINOPHILS # (AUTO) 0.2 X10'3 (0-0.9); EOSINOPHILS % (AUTO) 2.6 % (0-6); HEMOGLOBIN 10.6 g/dl (14.0-17.9); LYMPHOCYTES # (AUTO) 1.9 X10'3 (1.1-4.8); MEAN CORPUSCULAR HGB CONC 34.2 g/dL (33.0-36.5); MEAN CORPUSCULAR VOLUME 93.5 FL (78-98); MEAN PLATELET VOLUME 7.4 FL (7.4-10.4); MONOCYTES % (AUTO) 12.8 % (2-12); NEUTROPHILS # (AUTO) 4.8 X10'3 (1.8-7.7); NEUTROPHILS % (AUTO) 59.5 % (42-75); PLATELET COUNT 233 X10'3 (140-440); RED BLOOD COUNT 3.31 X10'6 (4.70-6.10); RED CELL DISTRIBUTION WIDTH 16.6 % (11.5-14.5); WHITE BLOOD COUNT 8.1 X10'3 (4.5-11.0)
[2021-09-15 06:19] LABS: ALBUMIN 2.9 G/DL (3.4-5.0); ANION GAP 7 (8-16); BLOOD UREA NITROGEN 17 MG/DL (7-18); BUN/CREATININE RATIO 27.9 (5.4-32.0); CALCIUM 8.5 MG/DL (8.5-10.1); CHLORIDE 97 MMOL/L (99-107); CREATININE 0.61 MG/DL (0.60-1.10); GLUCOSE 91 MG/DL (70-104); MAGNESIUM 1.1 MG/DL (1.5-2.4); POTASSIUM 4.7 MMOL/L (3.5-5.1); SODIUM 128 MMOL/L (135-145); TOTAL CARBON DIOXIDE 24.2 MMOL/L (24-32); eGFR > 90 ML/MIN
[2021-09-15] MEDS: HYDROcodone/acetaminophen 5mg/325mg tablet PO PRN ×2 (06:39→23:04)
[2021-09-15] MEDS: divalproex 250mg tablet, delayed-release PO SCH ×2 (08:31→20:30)
[2021-09-15] MEDS: docusate sod 100mg capsule PO SCH ×2 (08:32→20:33)
[2021-09-15] MEDS: metoprolol tartrate 50mg tablet PO SCH ×2 (08:32→20:31)
[2021-09-15] MEDS: aspirin 81mg, enteric-coated 1 TAB TABLET.DR PO SCH (08:33)
[2021-09-15] MEDS: duloxetine 30mg CAPSULE.DR PO SCH (08:33)
[2021-09-15] MEDS: pantoprazole 40mg Tablet.DR PO SCH (08:33)
[2021-09-15] MEDS: primidone 50mg tablet PO SCH (08:34)
--- NOTE | 2021-09-15 08:34 | NUR ---
Initial: Pt admit dx recurrent falls and dementia per EMR. Currently on Heart Healthy diet eating mostly 100% of meals meeting nutrient needs at this time, though recommend liberalizing to Regular diet given no cardiac hx in EMR. LBM 09/12 receiving routine colace. No nutrition intervention implemented at this time, will continue to monitor. Recs: 1. Liberalize to Regular diet 2. Bowel care per rx 3. Scaled wts Addendum: 09/15/21 at [address] Amended: Links added.
[2021-09-15] MEDS: traMADol 50MG tablet PO PRN ×2 (08:35→20:32)
[2021-09-15] MEDS: heparin, porcine 5000 units/ml vial SQ SCH ×2 (08:36→20:33)
[2021-09-15] MEDS: K and/or MAG REPLACEMENT MC SCH ×2 (08:37→20:00)
[2021-09-15 13:56] VITALS: BP 135/58
[2021-09-15 15:00] VITALS: BP 130/60
[2021-09-15] MEDS: lactose-reduced food (Ensure High Protein) 237ml bottle PO SCH (18:40)
[2021-09-15 20:27] VITALS: BP 145/69
[2021-09-15] MEDS: atorvastatin 20mg tablet PO SCH (20:35)
[2021-09-15] MEDS: amitriptyline 25mg tablet PO SCH (20:35)
[2021-09-15 22:00] VITALS: BP 148/74
[2021-09-16 02:00] VITALS: BP 132/71
[2021-09-16] MEDS ORDERED: magnesium 4gm in 100ml NS 100 ML IV PRN (02:40)
[2021-09-16] MEDS ORDERED: magnesium 2GM in 50ml NS 50 ML IV PRN (02:40)
[2021-09-16] MEDS ORDERED: potassium Cl 20 mEq SR tablet PO PRN ×2 (02:40)
[2021-09-16] MEDS ORDERED: potassium CL 10mEq/100ml bag 100 ML IV PRN (02:40)
[2021-09-16] MEDS: magnesium Cl slow-release 64mg tablet PO PRN (05:18)
[2021-09-16 06:00] VITALS: BP 139/72
[2021-09-16 06:05] LABS: BASOPHILS # (AUTO) 0.1 X10'3 (0-0.2); BASOPHILS % (AUTO) 0.8 % (0-1); EOSINOPHILS # (AUTO) 0.2 X10'3 (0-0.9); HEMATOCRIT 28.5 % (42.0-52.0); HEMOGLOBIN 9.8 g/dl (14.0-17.9); LYMPHOCYTES % (AUTO) 26.1 % (21-51); MEAN CORPUSCULAR HEMOGLOBIN 32.1 PG (27.0-31.0); MEAN CORPUSCULAR HGB CONC 34.4 g/dL (33.0-36.5); MEAN CORPUSCULAR VOLUME 93.3 FL (78-98); MEAN PLATELET VOLUME 7.3 FL (7.4-10.4); MONOCYTES % (AUTO) 12.7 % (2-12); NEUTROPHILS # (AUTO) 4.4 X10'3 (1.8-7.7); NEUTROPHILS % (AUTO) 57.4 % (42-75); PLATELET COUNT 234 X10'3 (140-440); RED BLOOD COUNT 3.05 X10'6 (4.70-6.10); RED CELL DISTRIBUTION WIDTH 16.2 % (11.5-14.5); WHITE BLOOD COUNT 7.6 X10'3 (4.5-11.0)
[2021-09-16 06:16] LABS: ALBUMIN 2.8 G/DL (3.4-5.0); ANION GAP 3 (8-16); BLOOD UREA NITROGEN 19 MG/DL (7-18); BUN/CREATININE RATIO 29.2 (5.4-32.0); CALCIUM 8.2 MG/DL (8.5-10.1); CHLORIDE 100 MMOL/L (99-107); CREATININE 0.65 MG/DL (0.60-1.10); GLUCOSE 86 MG/DL (70-104); MAGNESIUM 1.2 MG/DL (1.5-2.4); POTASSIUM 4.5 MMOL/L (3.5-5.1); SODIUM 129 MMOL/L (135-145); eGFR > 90 ML/MIN
[2021-09-16] MEDS: HYDROcodone/acetaminophen 5mg/325mg tablet PO PRN ×4 (07:38→20:55)
[2021-09-16] MEDS: K and/or MAG REPLACEMENT MC SCH ×2 (07:40→20:00)
[2021-09-16] MEDS: normal saline 1000ml 1,000 ML IV SCH (07:40)
[2021-09-16] MEDS: duloxetine 30mg CAPSULE.DR PO SCH (07:42)
[2021-09-16] MEDS: divalproex 250mg tablet, delayed-release PO SCH ×2 (07:43→20:26)
[2021-09-16] MEDS: aspirin 81mg, enteric-coated 1 TAB TABLET.DR PO SCH (07:44)
[2021-09-16] MEDS: pantoprazole 40mg Tablet.DR PO SCH (07:44)
[2021-09-16] MEDS: docusate sod 250mg capsule PO PRN (07:44)
[2021-09-16] MEDS: primidone 50mg tablet PO SCH (07:45)
[2021-09-16] MEDS: metoprolol tartrate 50mg tablet PO SCH ×2 (07:50→20:25)
[2021-09-16] MEDS: heparin, porcine 5000 units/ml vial SQ SCH ×2 (07:52→20:26)
[2021-09-16] MEDS: docusate sod 100mg capsule PO SCH ×2 (07:54→20:00)
[2021-09-16] MEDS: lactose-reduced food (Ensure High Protein) 237ml bottle PO SCH ×2 (08:01→18:51)
[2021-09-16 10:00] VITALS: BP 125/58
[2021-09-16] MEDS: magnesium oxide 400mg tablet PO SCH ×2 (12:02→20:26)
[2021-09-16 18:00] VITALS: BP 123/50
--- NOTE | 2021-09-16 18:34 | NUR ---
Patient in room MED 315. I have received report from STACY Saravia and had the opportunity to ask questions and assume patient care.
[2021-09-16] MEDS: amitriptyline 25mg tablet PO SCH (20:26)
[2021-09-16] MEDS: atorvastatin 20mg tablet PO SCH (20:26)
[2021-09-16 22:00] VITALS: BP 140/51
[2021-09-17] MEDS: HYDROcodone/acetaminophen 5mg/325mg tablet PO PRN ×6 (01:27→21:23)
[2021-09-17 02:00] VITALS: BP 105/53
[2021-09-17 06:00] VITALS: BP 129/70
[2021-09-17 06:16] LABS: MAGNESIUM 1.1 MG/DL (1.5-2.4); POTASSIUM 4.7 MMOL/L (3.5-5.1)
--- NOTE | 2021-09-17 06:24 | NUR ---
Problems reprioritized. Patient report given, questions answered & plan of care reviewed with STACY Crockett.
[2021-09-17] MEDS: docusate sod 100mg capsule PO SCH ×2 (08:00→18:55)
[2021-09-17] MEDS: K and/or MAG REPLACEMENT MC SCH ×2 (08:00→18:53)
[2021-09-17] MEDS: divalproex 250mg tablet, delayed-release PO SCH ×2 (08:11→19:42)
[2021-09-17] MEDS: duloxetine 30mg CAPSULE.DR PO SCH (08:11)
[2021-09-17] MEDS: lactose-reduced food (Ensure High Protein) 237ml bottle PO SCH ×3 (08:11→18:53)
[2021-09-17] MEDS: aspirin 81mg, enteric-coated 1 TAB TABLET.DR PO SCH (08:11)
[2021-09-17] MEDS: metoprolol tartrate 50mg tablet PO SCH ×2 (08:12→19:43)
[2021-09-17] MEDS: magnesium oxide 400mg tablet PO SCH ×2 (08:12→19:42)
[2021-09-17] MEDS: primidone 50mg tablet PO SCH (08:12)
[2021-09-17] MEDS: pantoprazole 40mg Tablet.DR PO SCH (08:12)
[2021-09-17] MEDS: heparin, porcine 5000 units/ml vial SQ SCH ×2 (08:14→19:44)
[2021-09-17 10:00] VITALS: BP 99/48
[2021-09-17 14:00] VITALS: BP 134/64
[2021-09-17 18:27] VITALS: BP 130/60
[2021-09-17] MEDS: atorvastatin 20mg tablet PO SCH (19:43)
[2021-09-17] MEDS: amitriptyline 25mg tablet PO SCH (19:43)
[2021-09-17] MEDS: tamsulosin 0.4mg capsule PO SCH (19:43)
[2021-09-17 20:29] LABS: COLOR,URINE YELLOW (Yellow); GLUCOSE, URINE NEGATIVE (Neg); KETONES,URINE NEGATIVE (Neg); LEUKOCYTE ESTERASE ,URINE NEGATIVE (Neg); NITRITES, URINE POSITIVE (Neg); OCCULT BLOOD,URINE TRACE-INTACT (Neg); PH,URINE 7.5 (4.8-8.0); PROTEIN,URINE NEGATIVE (Neg); UROBILINOGEN,URINE 0.2 E.U/dL (0.2-1.0)
[2021-09-17 20:31] LABS: CLARITY,URINE SLIGHTLY CLOUDY (Clear); UA COLLECTION TYPE NON-SPECIFIED
[2021-09-17 20:39] LABS: BACTERIA,URINE 2+ /HPF (Neg); RBC,URINE 0-2 /HPF (0-2); SQUAMOUS EPITHELIAL CELL,UR FEW /LPF (FEW); WBC,URINE 0-4 /HPF (0-4)
[2021-09-17 22:00] VITALS: BP 130/70
[2021-09-17] MEDS ORDERED: CefTRIAXone/D5W-Rocephin 1gm 50 ML IV SCH (22:40)
[2021-09-17] MEDS ORDERED: CefTRIAXone inj 1,000 MG in normal saline 100ml IV soln 100 ML IV SCH (22:56)
[2021-09-17] MEDS: CefTRIAXone inj 1,000 MG in normal saline 100ml IV soln 100 ML IV SCH (23:14)
[2021-09-18 02:00] VITALS: BP 95/56
[2021-09-18] MEDS: HYDROcodone/acetaminophen 5mg/325mg tablet PO PRN ×6 (03:20→23:21)
--- NOTE | 2021-09-18 06:14 | NUR ---
Problems reprioritized. Patient report given, questions answered & plan of care reviewed with STACY Desai.
--- NOTE | 2021-09-18 06:20 | NUR ---
received report from maría gold rn
[2021-09-18 07:00] VITALS: BP 93/57
[2021-09-18 07:09] LABS: MAGNESIUM 1.3 MG/DL (1.5-2.4); POTASSIUM 4.3 MMOL/L (3.5-5.1)
[2021-09-18] MEDS: docusate sod 100mg capsule PO SCH ×2 (07:25→20:00)
[2021-09-18] MEDS: primidone 50mg tablet PO SCH (07:37)
[2021-09-18] MEDS: divalproex 250mg tablet, delayed-release PO SCH ×2 (07:38→19:32)
[2021-09-18] MEDS: aspirin 81mg, enteric-coated 1 TAB TABLET.DR PO SCH (07:38)
[2021-09-18] MEDS: pantoprazole 40mg Tablet.DR PO SCH (07:38)
[2021-09-18] MEDS: magnesium oxide 400mg tablet PO SCH ×2 (07:38→20:36)
[2021-09-18] MEDS: duloxetine 30mg CAPSULE.DR PO SCH (07:39)
[2021-09-18] MEDS: metoprolol tartrate 50mg tablet PO SCH ×2 (07:40→19:31)
[2021-09-18] MEDS: heparin, porcine 5000 units/ml vial SQ SCH ×2 (07:41→19:32)
[2021-09-18] MEDS: lactose-reduced food (Ensure High Protein) 237ml bottle PO SCH ×3 (07:41→18:16)
[2021-09-18] MEDS: CefTRIAXone inj 1,000 MG in normal saline 100ml IV soln 100 ML IV SCH (07:44)
[2021-09-18] MEDS: K and/or MAG REPLACEMENT MC SCH ×2 (08:00→19:39)
[2021-09-18 11:00] VITALS: BP 104/41
[2021-09-18] MEDS: magnesium Cl slow-release 64mg tablet PO PRN ×2 (11:26→15:18)
--- NOTE | 2021-09-18 12:19 | NUR ---
bladder scanner showed 260 ml in bladder at this time, continue to encourage emptying bladder and monitor
[2021-09-18 15:00] VITALS: BP 105/51
[2021-09-18 18:00] VITALS: BP 117/42
--- NOTE | 2021-09-18 18:17 | NUR ---
GAVE REPORT TO October,
[2021-09-18] MEDS: atorvastatin 20mg tablet PO SCH (20:36)
[2021-09-18] MEDS: amitriptyline 25mg tablet PO SCH (20:36)
[2021-09-18] MEDS: tamsulosin 0.4mg capsule PO SCH (21:00)
[2021-09-18 22:00] VITALS: BP 116/35
[2021-09-19] VITALS (7 sets, daily range): BP systolic 90–118; BP diastolic 35–59
[2021-09-19] MEDS: HYDROcodone/acetaminophen 5mg/325mg tablet PO PRN ×5 (03:22→22:19)
[2021-09-19 07:32] LABS: MAGNESIUM 1.5 MG/DL (1.5-2.4); POTASSIUM 5.2 MMOL/L (3.5-5.1)
[2021-09-19] MEDS: docusate sod 100mg capsule PO SCH ×2 (08:00→20:00)
[2021-09-19] MEDS: K and/or MAG REPLACEMENT MC SCH ×2 (08:00→20:00)
[2021-09-19] MEDS: metoprolol tartrate 50mg tablet PO SCH ×2 (08:00→20:08)
[2021-09-19] MEDS: magnesium oxide 400mg tablet PO SCH ×2 (08:45→20:06)
[2021-09-19] MEDS: pantoprazole 40mg Tablet.DR PO SCH (08:45)
[2021-09-19] MEDS: divalproex 250mg tablet, delayed-release PO SCH ×2 (08:45→20:06)
[2021-09-19] MEDS: duloxetine 30mg CAPSULE.DR PO SCH (08:45)
[2021-09-19] MEDS: primidone 50mg tablet PO SCH (08:45)
[2021-09-19] MEDS: aspirin 81mg, enteric-coated 1 TAB TABLET.DR PO SCH (08:46)
[2021-09-19] MEDS: heparin, porcine 5000 units/ml vial SQ SCH ×2 (08:47→20:08)
[2021-09-19] MEDS: lactose-reduced food (Ensure High Protein) 237ml bottle PO SCH ×2 (13:00→18:56)
--- NOTE | 2021-09-19 15:44 | NUR ---
WOUND INFECTION EDUCATION PROVIDED BY WOUND CARE 1. Patient instructed to call their primary doctor, or go the ED immediately if any of the following symptoms occur: * Increased pain in wound * Increase in drainage from the wound * Redness in the skin surrounding the wound * Warmth in the skin surrounding the wound * Bleeding from the wound * Temperature of 101 or greater 2. If any of these occur while in the hospital tell a nurse immediately. PRESSURE ULCER EDUCATION: DEFINITION: A pressure ulcer is an area of skin that breaks down when you stay in one position too long. The constant pressure against the skin reduces the blood flow to that area and the affected tissue dies. CAUSES: "Being bedridden or in a wheelchair "Fragile skin "Having a chronic condition, such as diabetes or vascular disease "Inability to move certain parts of your body without assistance "Older age "Incontinence of urine or stool SYMPTOMS: "A reddened area that DOES NOT turn white when pressed on - this can be the beginning of a pressure ulcer "A blister, deep sore or a crater - these can be advanced pressure ulcers FIRST AID: "Relieve the pressure on this area "Keep the area clean and dry "Call your primary doctor if you see any of the above symptoms "DO NOT massage the area "DO NOT use a donut shaped or ring shaped pillow- these actually interfere with the blood flow and cause complications PREVENTION: "Check for pressure ulcers everyday "Change position at least every two hours to relieve pressure "Use items that help relieve pressure- pillows, sheepskin, foam padding, and powders. "Keep skin clean and dry "Eat healthy well balanced meals "Exercise daily IF YOU SEE ANY OF THESE SYMPTOMS WHILE IN THE HOSPITAL - TELL YOUR NURSE IMMEDIATELY. IF YOU SEE ANY OF THESE SYMPTOMS WHILE AT HOME OR HAVE ANY QUESTIONS OR CONCERNS ABOUT PRESSURE ULCERS - CALL YOUR PRIMARY DOCTOR IMMEDIATELY. Addendum: 09/19/21 at 1545 by Vicky Chacon RN Amended: Links added.
--- NOTE | 2021-09-19 18:42 | NUR ---
Post voiding bladder scan: 1015 133ml 1755 less than 52 ml
[2021-09-19] MEDS: amitriptyline 25mg tablet PO SCH (20:06)
[2021-09-19] MEDS: atorvastatin 20mg tablet PO SCH (20:06)
[2021-09-19] MEDS: tamsulosin 0.4mg capsule PO SCH (21:00)
[2021-09-20 02:00] VITALS: BP 109/49
[2021-09-20] MEDS: HYDROcodone/acetaminophen 5mg/325mg tablet PO PRN ×5 (03:33→22:12)
[2021-09-20 06:00] VITALS: BP 102/57
[2021-09-20 06:11] LABS: MAGNESIUM 1.4 MG/DL (1.5-2.4)
[2021-09-20] MEDS: divalproex 250mg tablet, delayed-release PO SCH ×2 (07:23→20:34)
[2021-09-20] MEDS: magnesium oxide 400mg tablet PO SCH ×2 (07:23→20:34)
[2021-09-20] MEDS: pantoprazole 40mg Tablet.DR PO SCH (07:24)
[2021-09-20] MEDS: aspirin 81mg, enteric-coated 1 TAB TABLET.DR PO SCH (07:25)
[2021-09-20] MEDS: duloxetine 30mg CAPSULE.DR PO SCH (07:25)
[2021-09-20] MEDS: primidone 50mg tablet PO SCH (07:25)
[2021-09-20] MEDS: metoprolol tartrate 50mg tablet PO SCH ×2 (07:27→20:33)
[2021-09-20] MEDS: heparin, porcine 5000 units/ml vial SQ SCH ×2 (07:31→20:37)
[2021-09-20] MEDS: docusate sod 100mg capsule PO SCH ×2 (07:40→20:00)
[2021-09-20] MEDS: K and/or MAG REPLACEMENT MC SCH ×2 (08:46→20:00)
[2021-09-20] MEDS: lactose-reduced food (Ensure High Protein) 237ml bottle PO SCH ×3 (08:46→18:00)
--- NOTE | 2021-09-20 09:59 | NUR ---
Reassessment: Pt continues on heart healthy diet with slight fluctuations in PO intake though overall eating well documented with mostly 75-100% PO intake. Per MD note pt was requesting Ensures, pt now receiving an Ensure High Protein TIDWM per MD of which pt documented to be consuming 100% of. Pt meeting estimated nutrient needs at this time. LBM 09/18, with routine bowel care available though pt documented to be refusing at times. No nutrition intervention implemented at this time. Will continue to follow. Recommendations: 1. Liberalize to regular diet in view of no significant cardiac hx, low serum Na on admit, and lipid panel WNL with the exception of low LDL 2. Ensure High Protein TIDWM per MD/pt request 3. Routine bowel care 4. Scaled weight this admit; weekly scaled weights thereafter Addendum: 09/20/21 at [address] Amended: Links added.
[2021-09-20 11:00] VITALS: BP 91/33
[2021-09-20] MEDS: tolterodine 2mg SR capsule (24hr) PO SCH (11:10)
[2021-09-20] MEDS: atorvastatin 20mg tablet PO SCH (20:32)
[2021-09-20] MEDS: amitriptyline 25mg tablet PO SCH (20:32)
[2021-09-20] MEDS: tamsulosin 0.4mg capsule PO SCH (21:00)
[2021-09-20 22:00] VITALS: BP 114/44
[2021-09-21 02:00] VITALS: BP 110/40
[2021-09-21] MEDS: HYDROcodone/acetaminophen 5mg/325mg tablet PO PRN ×6 (02:21→23:05)
[2021-09-21 06:00] VITALS: BP 117/45
[2021-09-21] MEDS: aspirin 81mg, enteric-coated 1 TAB TABLET.DR PO SCH (07:01)
[2021-09-21] MEDS: lactose-reduced food (Ensure High Protein) 237ml bottle PO SCH ×3 (07:01→18:00)
[2021-09-21] MEDS: docusate sod 100mg capsule PO SCH ×2 (07:01→21:06)
[2021-09-21] MEDS: duloxetine 30mg CAPSULE.DR PO SCH (07:01)
[2021-09-21] MEDS: divalproex 250mg tablet, delayed-release PO SCH ×2 (07:01→21:06)
[2021-09-21] MEDS: heparin, porcine 5000 units/ml vial SQ SCH ×2 (07:02→21:09)
[2021-09-21] MEDS: magnesium oxide 400mg tablet PO SCH ×2 (07:02→21:07)
[2021-09-21] MEDS: pantoprazole 40mg Tablet.DR PO SCH (07:02)
[2021-09-21] MEDS: primidone 50mg tablet PO SCH (07:02)
[2021-09-21] MEDS: metoprolol tartrate 50mg tablet PO SCH ×2 (07:02→21:08)
[2021-09-21] MEDS: tolterodine 2mg SR capsule (24hr) PO SCH (07:04)
[2021-09-21] MEDS: K and/or MAG REPLACEMENT MC SCH ×2 (08:00→19:05)
[2021-09-21 10:00] VITALS: BP 128/59
[2021-09-21 14:00] VITALS: BP 119/65
[2021-09-21 18:00] VITALS: BP 118/46
[2021-09-21] MEDS: atorvastatin 20mg tablet PO SCH (21:05)
[2021-09-21] MEDS: tamsulosin 0.4mg capsule PO SCH (21:06)
[2021-09-21] MEDS: amitriptyline 25mg tablet PO SCH (21:08)
[2021-09-21 22:00] VITALS: BP 110/56
[2021-09-22] MEDS: HYDROcodone/acetaminophen 5mg/325mg tablet PO PRN ×5 (03:42→21:15)
[2021-09-22 06:00] VITALS: BP 110/59
[2021-09-22] MEDS: duloxetine 30mg CAPSULE.DR PO SCH (07:48)
[2021-09-22] MEDS: docusate sod 100mg capsule PO SCH ×2 (07:48→20:10)
[2021-09-22] MEDS: aspirin 81mg, enteric-coated 1 TAB TABLET.DR PO SCH (07:48)
[2021-09-22] MEDS: pantoprazole 40mg Tablet.DR PO SCH (07:49)
[2021-09-22] MEDS: heparin, porcine 5000 units/ml vial SQ SCH ×2 (07:49→20:10)
[2021-09-22] MEDS: magnesium oxide 400mg tablet PO SCH ×2 (07:49→20:09)
[2021-09-22] MEDS: divalproex 250mg tablet, delayed-release PO SCH ×2 (07:49→20:10)
[2021-09-22] MEDS: metoprolol tartrate 50mg tablet PO SCH ×2 (07:49→20:09)
[2021-09-22] MEDS: primidone 50mg tablet PO SCH (07:49)
[2021-09-22] MEDS: lactose-reduced food (Ensure High Protein) 237ml bottle PO SCH ×3 (07:50→18:00)
[2021-09-22] MEDS: K and/or MAG REPLACEMENT MC SCH ×2 (07:50→19:58)
[2021-09-22] MEDS: tolterodine 2mg SR capsule (24hr) PO SCH (08:11)
[2021-09-22 10:00] VITALS: BP 161/96
--- NOTE | 2021-09-22 11:00 | NUR ---
Patient found crawling on the floor of his room at 1050. Patient states he crawled onto the floor from his bed on purpose to leave his room. No sign of injury from a "fall" or complaints of pain (besides his chronic knee pain which he has been taking norco for). Bed alarm on, call light within reach. Dr Schaeffer made aware as well.
[2021-09-22 14:00] VITALS: BP 155/88
[2021-09-22 18:00] VITALS: BP 130/69
[2021-09-22] MEDS: amitriptyline 25mg tablet PO SCH (20:08)
[2021-09-22] MEDS: atorvastatin 20mg tablet PO SCH (20:09)
[2021-09-22] MEDS: tamsulosin 0.4mg capsule PO SCH (20:10)
[2021-09-22 22:00] VITALS: BP 136/66
[2021-09-23] MEDS: HYDROcodone/acetaminophen 5mg/325mg tablet PO PRN ×2 (01:48→08:40)
[2021-09-23 01:55] VITALS: BP 129/71
[2021-09-23 06:06] VITALS: BP 92/51
[2021-09-23] MEDS: K and/or MAG REPLACEMENT MC SCH ×2 (08:00→19:51)
[2021-09-23] MEDS: metoprolol tartrate 50mg tablet PO SCH ×3 (08:00→19:50)
[2021-09-23] MEDS: docusate sod 100mg capsule PO SCH ×2 (08:37→19:49)
[2021-09-23] MEDS: duloxetine 30mg CAPSULE.DR PO SCH (08:37)
[2021-09-23] MEDS: tolterodine 2mg SR capsule (24hr) PO SCH (08:38)
[2021-09-23] MEDS: primidone 50mg tablet PO SCH (08:38)
[2021-09-23] MEDS: docusate sod 250mg capsule PO PRN (08:40)
[2021-09-23] MEDS: pantoprazole 40mg Tablet.DR PO SCH (08:41)
[2021-09-23] MEDS: magnesium oxide 400mg tablet PO SCH ×2 (08:41→19:49)
[2021-09-23] MEDS: divalproex 250mg tablet, delayed-release PO SCH ×2 (08:41→19:50)
[2021-09-23] MEDS: heparin, porcine 5000 units/ml vial SQ SCH ×2 (08:42→19:51)
[2021-09-23] MEDS: lactose-reduced food (Ensure High Protein) 237ml bottle PO SCH ×3 (08:42→18:48)
[2021-09-23] MEDS: aspirin 81mg, enteric-coated 1 TAB TABLET.DR PO SCH (08:43)
[2021-09-23 10:10] VITALS: BP 117/77
[2021-09-23 14:37] VITALS: BP 105/56
[2021-09-23] MEDS: traMADol 50MG tablet PO PRN (16:55)
[2021-09-23 18:00] VITALS: BP 120/51
--- NOTE | 2021-09-23 18:39 | NUR ---
Patient in room MED 312. I have received report from Patel KUMAR and had the opportunity to ask questions and assume patient care.
[2021-09-23] MEDS: atorvastatin 20mg tablet PO SCH (19:50)
[2021-09-23] MEDS: amitriptyline 25mg tablet PO SCH (19:50)
[2021-09-23] MEDS: tamsulosin 0.4mg capsule PO SCH (19:50)
[2021-09-23 22:00] VITALS: BP 125/52
[2021-09-24] VITALS (7 sets, daily range): BP systolic 83–120; BP diastolic 42–99
[2021-09-24] MEDS: traMADol 50MG tablet PO PRN ×3 (00:36→21:35)
[2021-09-24] MEDS: baclofen 10mg tablet PO PRN (00:37)
--- NOTE | 2021-09-24 03:30 | NUR ---
Bladder scanned patient and had greater then 400ml. Called MD due to straight cath order is for over 600. MD called and okayed straight cath or place a vitale for retention. Patient voiding frequently but little amounts. Patient has not slept all night and restless. Patient admittedly refusing to allow any catheter to be placed.
--- NOTE | 2021-09-24 06:19 | NUR ---
Problems reprioritized. Patient report given, questions answered & plan of care reviewed with Lauren KUMAR.
--- NOTE | 2021-09-24 06:31 | NUR ---
Patient in room MED 312. I have received report from Yenni KUMAR and had the opportunity to ask questions and assume patient care.
[2021-09-24] MEDS: tolterodine 2mg SR capsule (24hr) PO SCH (07:14)
[2021-09-24] MEDS: pantoprazole 40mg Tablet.DR PO SCH (07:14)
[2021-09-24] MEDS: divalproex 250mg tablet, delayed-release PO SCH ×2 (07:14→20:29)
[2021-09-24] MEDS: heparin, porcine 5000 units/ml vial SQ SCH ×2 (07:14→20:30)
[2021-09-24] MEDS: magnesium oxide 400mg tablet PO SCH ×2 (07:15→20:30)
[2021-09-24] MEDS: primidone 50mg tablet PO SCH (07:15)
[2021-09-24] MEDS: duloxetine 30mg CAPSULE.DR PO SCH (07:15)
[2021-09-24] MEDS: aspirin 81mg, enteric-coated 1 TAB TABLET.DR PO SCH (07:16)
[2021-09-24] MEDS: docusate sod 100mg capsule PO SCH ×2 (07:16→20:32)
[2021-09-24] MEDS: metoprolol tartrate 50mg tablet PO SCH ×2 (07:16→20:32)
[2021-09-24] MEDS: K and/or MAG REPLACEMENT MC SCH ×2 (08:00→20:35)
[2021-09-24] MEDS: lactose-reduced food (Ensure High Protein) 237ml bottle PO SCH ×3 (08:00→20:00)
--- NOTE | 2021-09-24 14:17 | NUR ---
PATIENT MOVED TO TELE 315A
--- NOTE | 2021-09-24 18:25 | NUR ---
Problems reprioritized. Patient report given, questions answered & plan of care reviewed with on coming RN.
[2021-09-24] MEDS: tamsulosin 0.4mg capsule PO SCH (20:29)
[2021-09-24] MEDS: atorvastatin 20mg tablet PO SCH (20:29)
[2021-09-24] MEDS: amitriptyline 25mg tablet PO SCH (20:30)
[2021-09-25 02:00] VITALS: BP 101/53
[2021-09-25 06:00] VITALS: BP 101/50
[2021-09-25] MEDS: metoprolol tartrate 50mg tablet PO SCH ×2 (07:14→20:00)
[2021-09-25] MEDS: aspirin 81mg, enteric-coated 1 TAB TABLET.DR PO SCH (07:14)
[2021-09-25] MEDS: tolterodine 2mg SR capsule (24hr) PO SCH (07:14)
[2021-09-25] MEDS: lactose-reduced food (Ensure High Protein) 237ml bottle PO SCH ×3 (08:00→18:03)
[2021-09-25] MEDS: K and/or MAG REPLACEMENT MC SCH ×2 (08:00→20:00)
[2021-09-25] MEDS: traMADol 50MG tablet PO PRN ×3 (08:05→23:23)
[2021-09-25] MEDS: magnesium oxide 400mg tablet PO SCH ×2 (08:06→20:19)
[2021-09-25] MEDS: duloxetine 30mg CAPSULE.DR PO SCH (08:06)
[2021-09-25] MEDS: pantoprazole 40mg Tablet.DR PO SCH (08:06)
[2021-09-25] MEDS: divalproex 250mg tablet, delayed-release PO SCH ×2 (08:06→20:19)
[2021-09-25] MEDS: primidone 50mg tablet PO SCH (08:07)
[2021-09-25] MEDS: heparin, porcine 5000 units/ml vial SQ SCH ×2 (08:07→20:19)
[2021-09-25] MEDS: docusate sod 100mg capsule PO SCH ×2 (08:08→20:19)
--- NOTE | 2021-09-25 09:06 | NUR ---
Labs Per Dr. Schaeffer no need to place orders for labs. [facility]
--- NOTE | 2021-09-25 09:20 | NUR ---
Pain medications Verbal order from MD Schaeffer to place norco 10mg BID due to severe pain. [facility]
[2021-09-25 11:00] VITALS: BP 90/48
[2021-09-25 15:00] VITALS: BP 105/51
[2021-09-25 18:00] VITALS: BP 97/53
--- NOTE | 2021-09-25 18:22 | NUR ---
Problems reprioritized. Patient report given, questions answered & plan of care reviewed with Mary KUMAR.
[2021-09-25] MEDS: HYDROcodone/acetaminophen 10/325mg tab PO PRN (19:08)
[2021-09-25] MEDS: atorvastatin 20mg tablet PO SCH (20:19)
[2021-09-25] MEDS: tamsulosin 0.4mg capsule PO SCH (20:19)
[2021-09-25] MEDS: amitriptyline 25mg tablet PO SCH (20:19)
[2021-09-26] VITALS (7 sets, daily range): BP systolic 91–122; BP diastolic 43–62
[2021-09-26] MEDS: acetaminophen 325mg tablet PO PRN ×3 (00:41→20:08)
[2021-09-26] MEDS: K and/or MAG REPLACEMENT MC SCH ×2 (08:00→19:17)
[2021-09-26] MEDS: duloxetine 30mg CAPSULE.DR PO SCH (08:35)
[2021-09-26] MEDS: divalproex 250mg tablet, delayed-release PO SCH ×2 (08:36→20:08)
[2021-09-26] MEDS: aspirin 81mg, enteric-coated 1 TAB TABLET.DR PO SCH (08:36)
[2021-09-26] MEDS: magnesium oxide 400mg tablet PO SCH ×2 (08:36→20:08)
[2021-09-26] MEDS: tolterodine 2mg SR capsule (24hr) PO SCH (08:36)
[2021-09-26] MEDS: pantoprazole 40mg Tablet.DR PO SCH (08:37)
[2021-09-26] MEDS: docusate sod 100mg capsule PO SCH ×2 (08:37→20:12)
[2021-09-26] MEDS: primidone 50mg tablet PO SCH (08:37)
[2021-09-26] MEDS: traMADol 50MG tablet PO PRN ×2 (08:42→17:05)
[2021-09-26] MEDS: heparin, porcine 5000 units/ml vial SQ SCH ×2 (08:45→20:12)
[2021-09-26] MEDS: lactose-reduced food (Ensure High Protein) 237ml bottle PO SCH ×2 (08:47→18:00)
[2021-09-26] MEDS: metoprolol tartrate 50mg tablet PO SCH ×2 (08:48→20:12)
[2021-09-26] MEDS: HYDROcodone/acetaminophen 10/325mg tab PO PRN ×2 (08:49→22:11)
[2021-09-26] MEDS: amitriptyline 25mg tablet PO SCH (20:08)
[2021-09-26] MEDS: tamsulosin 0.4mg capsule PO SCH (22:13)
[2021-09-26] MEDS: atorvastatin 20mg tablet PO SCH (22:13)
[2021-09-27 02:00] VITALS: BP 105/50
[2021-09-27] MEDS: traMADol 50MG tablet PO PRN ×3 (02:43→19:21)
[2021-09-27 06:15] VITALS: BP 107/48
--- NOTE | 2021-09-27 06:29 | NUR ---
Problems reprioritized. Patient report given, questions answered & plan of care reviewed with STACY MADDOX.
--- NOTE | 2021-09-27 06:30 | NUR ---
Patient in room PCU 3015. I have received report from Paul KUMAR and had the opportunity to ask questions and assume patient care.
--- NOTE | 2021-09-27 07:12 | NUR ---
Reassessment: Pt continues on Heart Healthy diet w/ mostly 100% intake of meals as well as mostly 100% intake of ONS meeting est nutrient needs at this time. Recommend decreasing frequency of ONS to once daily as pt exceeding protein needs. LBM 09/23 receiving routine colace. No new nutrition intervention implemented at this time, will continue to monitor. Recommendations: 1. Liberalize to regular diet in view of no significant cardiac hx, low serum Na on admit, and lipid panel WNL with the exception of low LDL 2. Ensure High Protein TIDWM per MD/pt request; consider decreasing frequency 3. Routine bowel care 4. Scaled weight this admit; weekly scaled weights thereafter Addendum: 09/27/21 at [address] Amended: Links added.
[2021-09-27] MEDS: K and/or MAG REPLACEMENT MC SCH ×2 (08:00→18:57)
[2021-09-27] MEDS: duloxetine 30mg CAPSULE.DR PO SCH (08:40)
[2021-09-27] MEDS: aspirin 81mg, enteric-coated 1 TAB TABLET.DR PO SCH (08:40)
[2021-09-27] MEDS: divalproex 250mg tablet, delayed-release PO SCH ×2 (08:41→19:21)
[2021-09-27] MEDS: docusate sod 100mg capsule PO SCH ×2 (08:41→19:31)
[2021-09-27] MEDS: magnesium oxide 400mg tablet PO SCH ×2 (08:41→19:21)
[2021-09-27] MEDS: primidone 50mg tablet PO SCH (08:41)
[2021-09-27] MEDS: HYDROcodone/acetaminophen 10/325mg tab PO PRN ×2 (08:41→16:35)
[2021-09-27] MEDS: pantoprazole 40mg Tablet.DR PO SCH (08:41)
[2021-09-27] MEDS: tolterodine 2mg SR capsule (24hr) PO SCH (08:42)
[2021-09-27] MEDS: metoprolol tartrate 50mg tablet PO SCH ×2 (08:44→21:02)
[2021-09-27] MEDS: heparin, porcine 5000 units/ml vial SQ SCH ×2 (08:45→19:21)
[2021-09-27] MEDS: lactose-reduced food (Ensure High Protein) 237ml bottle PO SCH ×3 (08:45→18:14)
[2021-09-27 11:00] VITALS: BP 99/50
--- NOTE | 2021-09-27 11:56 | NUR ---
Paged Dr. Schaeffer about patient being dizzy and low-bp with physical therapy. patient in bed and okay right now, although patient did not walk.
[2021-09-27 15:00] VITALS: BP 117/50
[2021-09-27 18:00] VITALS: BP 98/62
--- NOTE | 2021-09-27 18:33 | NUR ---
Patient report given to Paul KUMAR
[2021-09-27] MEDS ORDERED: magnesium hydroxide 30ml (MOM) UD suspension PO ONE (19:30)
[2021-09-27] MEDS: amitriptyline 25mg tablet PO SCH (21:01)
[2021-09-27] MEDS: atorvastatin 20mg tablet PO SCH (21:02)
[2021-09-27] MEDS: tamsulosin 0.4mg capsule PO SCH (21:02)
[2021-09-27 22:00] VITALS: BP 107/56
[2021-09-28] MEDS: HYDROcodone/acetaminophen 10/325mg tab PO PRN ×3 (00:41→16:39)
[2021-09-28] MEDS: traMADol 50MG tablet PO PRN ×3 (04:19→20:17)
[2021-09-28] MEDS ORDERED: magnesium hydroxide 30ml (MOM) UD suspension PO ONE (04:25)
[2021-09-28 06:00] VITALS: BP 161/79
[2021-09-28] MEDS: lactose-reduced food (Ensure High Protein) 237ml bottle PO SCH ×3 (08:00→18:01)
[2021-09-28] MEDS: K and/or MAG REPLACEMENT MC SCH ×2 (08:00→20:00)
[2021-09-28] MEDS: docusate sod 100mg capsule PO SCH ×2 (08:30→20:17)
[2021-09-28] MEDS: duloxetine 30mg CAPSULE.DR PO SCH (08:31)
[2021-09-28] MEDS: primidone 50mg tablet PO SCH (08:31)
[2021-09-28] MEDS: divalproex 250mg tablet, delayed-release PO SCH ×2 (08:31→20:18)
[2021-09-28] MEDS: metoprolol tartrate 50mg tablet PO SCH ×2 (08:31→20:18)
[2021-09-28] MEDS: aspirin 81mg, enteric-coated 1 TAB TABLET.DR PO SCH (08:31)
[2021-09-28] MEDS: magnesium oxide 400mg tablet PO SCH ×2 (08:31→20:18)
[2021-09-28] MEDS: pantoprazole 40mg Tablet.DR PO SCH (08:32)
[2021-09-28] MEDS: heparin, porcine 5000 units/ml vial SQ SCH ×2 (08:33→20:19)
[2021-09-28] MEDS: tolterodine 2mg SR capsule (24hr) PO SCH (08:39)
--- NOTE | 2021-09-28 10:07 | NUR ---
Patient is alert and orientated x4, appropriate, and follow commands. Patient was able to swallow pills whole and is agreeable with all medical care.
[2021-09-28 11:00] VITALS: BP 135/60
--- NOTE | 2021-09-28 12:58 | NUR ---
PRESSURE ULCER EDUCATION: DEFINITION: A pressure ulcer is an area of skin that breaks down when you stay in one position too long. The constant pressure against the skin reduces the blood flow to that area and the affected tissue dies. CAUSES: "Being bedridden or in a wheelchair "Fragile skin "Having a chronic condition, such as diabetes or vascular disease "Inability to move certain parts of your body without assistance "Older age "Incontinence of urine or stool SYMPTOMS: "A reddened area that DOES NOT turn white when pressed on - this can be the beginning of a pressure ulcer "A blister, deep sore or a crater - these can be advanced pressure ulcers FIRST AID: "Relieve the pressure on this area "Keep the area clean and dry "Call your primary doctor if you see any of the above symptoms "DO NOT massage the area "DO NOT use a donut shaped or ring shaped pillow- these actually interfere with the blood flow and cause complications PREVENTION: "Check for pressure ulcers everyday "Change position at least every two hours to relieve pressure "Use items that help relieve pressure- pillows, sheepskin, foam padding, and powders. "Keep skin clean and dry "Eat healthy well balanced meals "Exercise daily IF YOU SEE ANY OF THESE SYMPTOMS WHILE IN THE HOSPITAL - TELL YOUR NURSE IMMEDIATELY. IF YOU SEE ANY OF THESE SYMPTOMS WHILE AT HOME OR HAVE ANY QUESTIONS OR CONCERNS ABOUT PRESSURE ULCERS - CALL YOUR PRIMARY DOCTOR IMMEDIATELY. Addendum: 09/28/21 at 1258 by Vicky Chacon RN Amended: Links added.
[2021-09-28 15:30] VITALS: BP 112/43
[2021-09-28 18:00] VITALS: BP 101/45
--- NOTE | 2021-09-28 18:08 | NUR ---
Problems reprioritized. Patient report given, questions answered & plan of care reviewed with Mary KUMAR.
[2021-09-28] MEDS: amitriptyline 25mg tablet PO SCH (20:18)
[2021-09-28] MEDS: atorvastatin 20mg tablet PO SCH (20:18)
[2021-09-28] MEDS: tamsulosin 0.4mg capsule PO SCH (20:25)
[2021-09-28 22:00] VITALS: BP 101/51
[2021-09-29] MEDS: HYDROcodone/acetaminophen 10/325mg tab PO PRN ×3 (00:41→16:36)
[2021-09-29 02:00] VITALS: BP 111/57
[2021-09-29] MEDS: traMADol 50MG tablet PO PRN ×3 (04:39→19:53)
[2021-09-29 06:00] VITALS: BP 159/87
[2021-09-29] MEDS: docusate sod 100mg capsule PO SCH ×2 (07:34→19:50)
[2021-09-29] MEDS: magnesium oxide 400mg tablet PO SCH ×2 (07:34→19:51)
[2021-09-29] MEDS: duloxetine 30mg CAPSULE.DR PO SCH (07:34)
[2021-09-29] MEDS: pantoprazole 40mg Tablet.DR PO SCH (07:34)
[2021-09-29] MEDS: primidone 50mg tablet PO SCH (07:34)
[2021-09-29] MEDS: metoprolol tartrate 50mg tablet PO SCH ×2 (07:35→19:57)
[2021-09-29] MEDS: divalproex 250mg tablet, delayed-release PO SCH ×2 (07:35→19:50)
[2021-09-29] MEDS: aspirin 81mg, enteric-coated 1 TAB TABLET.DR PO SCH (07:35)
[2021-09-29] MEDS: tolterodine 2mg SR capsule (24hr) PO SCH (07:35)
[2021-09-29] MEDS: heparin, porcine 5000 units/ml vial SQ SCH ×2 (07:36→19:54)
[2021-09-29] MEDS: lactose-reduced food (Ensure High Protein) 237ml bottle PO SCH ×3 (07:38→18:00)
[2021-09-29] MEDS: K and/or MAG REPLACEMENT MC SCH ×2 (08:00→20:00)
--- NOTE | 2021-09-29 10:45 | NUR ---
patient transferred from [facility] alert and oriented x4. no SOB/ distress noted at this time.
--- NOTE | 2021-09-29 10:46 | NUR ---
Patient was transferred to [facility] for continue treatments.
[2021-09-29 11:59] VITALS: BP 99/60
[2021-09-29 18:00] VITALS: BP 107/61
[2021-09-29] MEDS: amitriptyline 25mg tablet PO SCH (20:00)
[2021-09-29] MEDS: tamsulosin 0.4mg capsule PO SCH (20:01)
[2021-09-29] MEDS: atorvastatin 20mg tablet PO SCH (20:01)
[2021-09-29] MEDS: baclofen 10mg tablet PO PRN (22:59)
[2021-09-30] VITALS: BP 132/60
[2021-09-30] MEDS: HYDROcodone/acetaminophen 10/325mg tab PO PRN ×3 (01:44→19:09)
--- NOTE | 2021-09-30 06:30 | NUR ---
Problems reprioritized. Patient report given, questions answered & plan of care reviewed with Amber KUMAR.
--- NOTE | 2021-09-30 06:44 | NUR ---
Patient in room [facility]. I have received report from STACY Addison and had the opportunity to ask questions and assume patient care.
[2021-09-30] MEDS: divalproex 250mg tablet, delayed-release PO SCH ×2 (07:30→20:32)
[2021-09-30] MEDS: pantoprazole 40mg Tablet.DR PO SCH (07:30)
[2021-09-30] MEDS: traMADol 50MG tablet PO PRN ×3 (07:30→23:06)
[2021-09-30] MEDS: magnesium oxide 400mg tablet PO SCH ×2 (07:31→20:33)
[2021-09-30] MEDS: aspirin 81mg, enteric-coated 1 TAB TABLET.DR PO SCH (07:31)
[2021-09-30] MEDS: duloxetine 30mg CAPSULE.DR PO SCH (07:31)
[2021-09-30] MEDS: docusate sod 100mg capsule PO SCH ×2 (07:31→20:32)
[2021-09-30] MEDS: primidone 50mg tablet PO SCH (07:31)
[2021-09-30] MEDS: tolterodine 2mg SR capsule (24hr) PO SCH (07:31)
[2021-09-30] MEDS: metoprolol tartrate 50mg tablet PO SCH ×2 (07:34→20:00)
[2021-09-30 08:00] VITALS: BP 138/70
[2021-09-30] MEDS: lactose-reduced food (Ensure High Protein) 237ml bottle PO SCH ×3 (08:00→18:00)
[2021-09-30] MEDS: heparin, porcine 5000 units/ml vial SQ SCH ×2 (08:00→20:33)
[2021-09-30] MEDS: K and/or MAG REPLACEMENT MC SCH ×2 (08:00→20:00)
--- NOTE | 2021-09-30 08:00 | NUR ---
SQ heparin scheduled for 0800 non-administered D/T no platelet count drawn since 09/16. Dr Schaeffer notifed, CBC ordered for 10/01 AM.
[2021-09-30] MEDS ORDERED: morphine 2 MG/ML inj. syringe IV ONE (09:30)
[2021-09-30 11:00] VITALS: BP 112/55
--- NOTE | 2021-09-30 18:17 | NUR ---
Problems reprioritized. Patient report given, questions answered & plan of care reviewed with STACY Bai.
[2021-09-30 20:00] VITALS: BP 105/86
[2021-09-30] MEDS: amitriptyline 25mg tablet PO SCH (20:32)
[2021-09-30] MEDS: tamsulosin 0.4mg capsule PO SCH (20:33)
[2021-09-30] MEDS: atorvastatin 20mg tablet PO SCH (20:33)
[2021-10-01] VITALS: BP 130/65
[2021-10-01] MEDS: bisacodyl 10mg suppository rectal RC PRN (03:12)
[2021-10-01] MEDS: HYDROcodone/acetaminophen 10/325mg tab PO PRN ×3 (03:16→21:11)
--- NOTE | 2021-10-01 06:10 | NUR ---
Patient in room [facility]. I have received report from STACY Bai and had the opportunity to ask questions and assume patient care.
--- NOTE | 2021-10-01 06:38 | NUR ---
Patient remains in stable condition, pain management in progress. Report given to STACY Clark, for continuation of care.
[2021-10-01 07:00] VITALS: BP 129/67
[2021-10-01] MEDS: K and/or MAG REPLACEMENT MC SCH ×2 (08:00→20:00)
[2021-10-01] MEDS: metoprolol tartrate 50mg tablet PO SCH ×2 (08:29→21:04)
[2021-10-01] MEDS: magnesium oxide 400mg tablet PO SCH ×2 (08:29→21:06)
[2021-10-01] MEDS: aspirin 81mg, enteric-coated 1 TAB TABLET.DR PO SCH (08:29)
[2021-10-01] MEDS: divalproex 250mg tablet, delayed-release PO SCH ×2 (08:29→21:06)
[2021-10-01] MEDS: traMADol 50MG tablet PO PRN ×2 (08:30→16:27)
[2021-10-01] MEDS: primidone 50mg tablet PO SCH (08:30)
[2021-10-01] MEDS: duloxetine 30mg CAPSULE.DR PO SCH (08:30)
[2021-10-01] MEDS: docusate sod 100mg capsule PO SCH ×2 (08:31→21:05)
[2021-10-01] MEDS: tolterodine 2mg SR capsule (24hr) PO SCH (08:32)
[2021-10-01] MEDS: lactose-reduced food (Ensure High Protein) 237ml bottle PO SCH ×4 (08:32→19:00)
[2021-10-01] MEDS: pantoprazole 40mg Tablet.DR PO SCH (08:34)
--- NOTE | 2021-10-01 08:35 | NUR ---
No labs ordered for patient today. Heparin held do to no current labs since 09/16/21. No values for K/Mg as well.
[2021-10-01 08:43] LABS: BASOPHILS # (AUTO) 0.1 X10'3 (0-0.2); BASOPHILS % (AUTO) 0.8 % (0-1); EOSINOPHILS # (AUTO) 0.2 X10'3 (0-0.9); EOSINOPHILS % (AUTO) 1.4 % (0-6); HEMOGLOBIN 10.8 g/dl (14.0-17.9); LYMPHOCYTES # (AUTO) 2.3 X10'3 (1.1-4.8); LYMPHOCYTES % (AUTO) 19.8 % (21-51); MEAN CORPUSCULAR HEMOGLOBIN 31.3 PG (27.0-31.0); MEAN CORPUSCULAR HGB CONC 33.6 g/dL (33.0-36.5); MEAN CORPUSCULAR VOLUME 93.1 FL (78-98); MEAN PLATELET VOLUME 7.1 FL (7.4-10.4); MONOCYTES # (AUTO) 0.7 X10'3 (0-0.9); MONOCYTES % (AUTO) 6.1 % (2-12); NEUTROPHILS # (AUTO) 8.4 X10'3 (1.8-7.7); NEUTROPHILS % (AUTO) 71.9 % (42-75); PLATELET COUNT 315 X10'3 (140-440); RED BLOOD COUNT 3.44 X10'6 (4.70-6.10); WHITE BLOOD COUNT 11.7 X10'3 (4.5-11.0)
[2021-10-01] MEDS: heparin, porcine 5000 units/ml vial SQ SCH ×2 (08:53→21:06)
--- NOTE | 2021-10-01 11:05 | NUR ---
Offered pt full bed linen change D/T spilt coffee. Pt declined full bed change, requesting only new gown, top sheet, and blanket.
[2021-10-01 11:30] VITALS: BP 118/55
[2021-10-01 18:00] VITALS: BP 121/57
--- NOTE | 2021-10-01 18:18 | NUR ---
Problems reprioritized. Patient report given, questions answered & plan of care reviewed with STACY Bai.
[2021-10-01] MEDS: tamsulosin 0.4mg capsule PO SCH (21:05)
[2021-10-01] MEDS: atorvastatin 20mg tablet PO SCH (21:05)
[2021-10-01] MEDS: amitriptyline 25mg tablet PO SCH (21:14)
[2021-10-02] VITALS: BP 118/66
[2021-10-02] MEDS: traMADol 50MG tablet PO PRN ×3 (02:13→20:40)
[2021-10-02 06:00] VITALS: BP 125/50
--- NOTE | 2021-10-02 06:10 | NUR ---
received report from annia akers
--- NOTE | 2021-10-02 06:49 | NUR ---
Report to STACY Desia, for continuation of care. Patient remains in stable condition.
[2021-10-02] MEDS: docusate sod 100mg capsule PO SCH ×2 (07:21→20:40)
[2021-10-02] MEDS: duloxetine 30mg CAPSULE.DR PO SCH (07:21)
[2021-10-02] MEDS: divalproex 250mg tablet, delayed-release PO SCH ×2 (07:22→20:40)
[2021-10-02] MEDS: HYDROcodone/acetaminophen 10/325mg tab PO PRN ×3 (07:22→23:05)
[2021-10-02] MEDS: tolterodine 2mg SR capsule (24hr) PO SCH (07:22)
[2021-10-02] MEDS: aspirin 81mg, enteric-coated 1 TAB TABLET.DR PO SCH (07:22)
[2021-10-02] MEDS: primidone 50mg tablet PO SCH (07:23)
[2021-10-02] MEDS: magnesium oxide 400mg tablet PO SCH ×2 (07:23→20:41)
[2021-10-02] MEDS: pantoprazole 40mg Tablet.DR PO SCH (07:23)
[2021-10-02] MEDS: heparin, porcine 5000 units/ml vial SQ SCH ×2 (07:24→20:42)
[2021-10-02] MEDS: metoprolol tartrate 50mg tablet PO SCH ×2 (07:28→20:41)
[2021-10-02] MEDS: K and/or MAG REPLACEMENT MC SCH ×2 (07:30→20:00)
[2021-10-02 11:00] VITALS: BP 99/46
[2021-10-02] MEDS: lactose-reduced food (Ensure High Protein) 237ml bottle PO SCH ×2 (12:31→18:04)
[2021-10-02] MEDS: baclofen 10mg tablet PO PRN ×2 (16:36→20:40)
--- NOTE | 2021-10-02 18:43 | NUR ---
gave report to annia christensen
[2021-10-02 20:00] VITALS: BP 128/59
[2021-10-02] MEDS: tamsulosin 0.4mg capsule PO SCH (20:40)
[2021-10-02] MEDS: atorvastatin 20mg tablet PO SCH (20:40)
[2021-10-02] MEDS: amitriptyline 25mg tablet PO SCH (20:41)
[2021-10-02] MEDS: bisacodyl 10mg suppository rectal RC PRN (22:03)
[2021-10-02 23:29] VITALS: BP 132/51
[2021-10-03] MEDS: traMADol 50MG tablet PO PRN ×3 (04:14→20:07)
[2021-10-03] MEDS: pantoprazole 40mg Tablet.DR PO SCH (07:17)
[2021-10-03] MEDS: magnesium oxide 400mg tablet PO SCH ×2 (07:17→20:08)
[2021-10-03] MEDS: divalproex 250mg tablet, delayed-release PO SCH ×2 (07:17→20:09)
[2021-10-03] MEDS: tolterodine 2mg SR capsule (24hr) PO SCH (07:17)
[2021-10-03] MEDS: duloxetine 30mg CAPSULE.DR PO SCH (07:18)
[2021-10-03] MEDS: aspirin 81mg, enteric-coated 1 TAB TABLET.DR PO SCH (07:18)
[2021-10-03] MEDS: metoprolol tartrate 50mg tablet PO SCH ×2 (07:18→20:10)
[2021-10-03] MEDS: docusate sod 100mg capsule PO SCH ×2 (07:19→20:08)
[2021-10-03] MEDS: HYDROcodone/acetaminophen 10/325mg tab PO PRN ×3 (07:19→23:19)
[2021-10-03] MEDS: primidone 50mg tablet PO SCH (07:19)
[2021-10-03] MEDS: heparin, porcine 5000 units/ml vial SQ SCH ×2 (07:19→20:11)
[2021-10-03 08:00] VITALS: BP 126/63
[2021-10-03] MEDS: lactose-reduced food (Ensure High Protein) 237ml bottle PO SCH ×3 (08:00→18:00)
[2021-10-03] MEDS: K and/or MAG REPLACEMENT MC SCH ×2 (08:00→20:00)
[2021-10-03 11:36] VITALS: BP 94/55
--- NOTE | 2021-10-03 18:19 | NUR ---
Problems reprioritized. Patient report given, questions answered & plan of care reviewed with Breann KUMAR.
[2021-10-03 20:00] VITALS: BP 109/58
[2021-10-03] MEDS: atorvastatin 20mg tablet PO SCH (20:08)
[2021-10-03] MEDS: baclofen 10mg tablet PO PRN (20:09)
[2021-10-03] MEDS: tamsulosin 0.4mg capsule PO SCH (20:11)
[2021-10-03] MEDS: amitriptyline 25mg tablet PO SCH (20:11)
[2021-10-04] VITALS: BP 117/53
[2021-10-04] MEDS: traMADol 50MG tablet PO PRN ×3 (03:55→20:27)
[2021-10-04] MEDS: HYDROcodone/acetaminophen 10/325mg tab PO PRN ×3 (06:58→23:08)
[2021-10-04] MEDS: duloxetine 30mg CAPSULE.DR PO SCH (07:12)
[2021-10-04] MEDS: tolterodine 2mg SR capsule (24hr) PO SCH (07:14)
[2021-10-04] MEDS: docusate sod 100mg capsule PO SCH ×2 (07:14→20:25)
[2021-10-04] MEDS: primidone 50mg tablet PO SCH (07:14)
[2021-10-04] MEDS: baclofen 10mg tablet PO PRN ×2 (07:14→15:23)
[2021-10-04] MEDS: metoprolol tartrate 50mg tablet PO SCH ×2 (07:14→20:00)
[2021-10-04] MEDS: magnesium oxide 400mg tablet PO SCH ×2 (07:15→20:27)
[2021-10-04] MEDS: aspirin 81mg, enteric-coated 1 TAB TABLET.DR PO SCH (07:15)
[2021-10-04] MEDS: divalproex 250mg tablet, delayed-release PO SCH ×2 (07:15→20:25)
[2021-10-04] MEDS: pantoprazole 40mg Tablet.DR PO SCH (07:15)
[2021-10-04] MEDS: heparin, porcine 5000 units/ml vial SQ SCH ×2 (07:16→20:28)
[2021-10-04] MEDS: lactose-reduced food (Ensure High Protein) 237ml bottle PO SCH ×3 (08:00→18:00)
[2021-10-04] MEDS: K and/or MAG REPLACEMENT MC SCH ×2 (08:00→19:18)
[2021-10-04 08:35] VITALS: BP 115/52
[2021-10-04 11:17] VITALS: BP 116/58
--- NOTE | 2021-10-04 12:55 | NUR ---
Paged Dr. Lee MESSAGE: Surgical Henna RN ext [phone] RE: Kevin, Venancio. Mg 1.4 today, can we get Mg replacement protocol order?
--- NOTE | 2021-10-04 18:17 | NUR ---
Problems reprioritized. Patient report given, questions answered & plan of care reviewed with Breann KUMAR.
[2021-10-04 19:00] VITALS: BP 93/47
[2021-10-04] MEDS: tamsulosin 0.4mg capsule PO SCH (20:25)
[2021-10-04] MEDS: atorvastatin 20mg tablet PO SCH (20:25)
[2021-10-04] MEDS: amitriptyline 25mg tablet PO SCH (20:25)
[2021-10-04 20:31] VITALS: BP 98/44
[2021-10-04 23:13] VITALS: BP 105/53
[2021-10-05] MEDS: traMADol 50MG tablet PO PRN ×3 (04:15→20:23)
[2021-10-05] MEDS: divalproex 250mg tablet, delayed-release PO SCH ×2 (07:19→20:18)
[2021-10-05] MEDS: HYDROcodone/acetaminophen 10/325mg tab PO PRN ×3 (07:19→21:28)
[2021-10-05] MEDS: metoprolol tartrate 50mg tablet PO SCH ×2 (07:20→20:20)
[2021-10-05] MEDS: aspirin 81mg, enteric-coated 1 TAB TABLET.DR PO SCH (07:20)
[2021-10-05] MEDS: duloxetine 30mg CAPSULE.DR PO SCH (07:20)
[2021-10-05] MEDS: docusate sod 100mg capsule PO SCH ×2 (07:20→20:18)
[2021-10-05] MEDS: tolterodine 2mg SR capsule (24hr) PO SCH (07:20)
[2021-10-05] MEDS: pantoprazole 40mg Tablet.DR PO SCH (07:20)
[2021-10-05] MEDS: primidone 50mg tablet PO SCH (07:20)
[2021-10-05] MEDS: heparin, porcine 5000 units/ml vial SQ SCH ×2 (07:21→20:17)
[2021-10-05] MEDS: magnesium oxide 400mg tablet PO SCH ×2 (07:21→20:18)
[2021-10-05 07:26] VITALS: BP 121/61
[2021-10-05] MEDS: lactose-reduced food (Ensure High Protein) 237ml bottle PO SCH ×3 (08:00→18:00)
[2021-10-05] MEDS: K and/or MAG REPLACEMENT MC SCH ×2 (08:00→20:00)
[2021-10-05 11:00] VITALS: BP 85/40
[2021-10-05] MEDS: baclofen 10mg tablet PO PRN (12:17)
--- NOTE | 2021-10-05 12:27 | NUR ---
Reassessment: Pt continues on Heart Healthy diet w/ mostly 100% intake of meals and 100% intake of ONS currently exceeding estimated energy and protein needs. Discussed w/ RN discontinue Ensure High protein TID as pt is meeting estimated protein and energy needs w/ meals. LBM 10/01, received Dulcolax 10/02 per EMR. Will send prunes w/ next meal to assist w/ bowel movement, d/w dietary. No additional nutrition intervention implemented at this time. Will continue to follow. Recommendations: 1. Liberalize to regular diet in view of no significant cardiac hx, low serum Na on admit, and lipid panel WNL with the exception of low LDL 2. Ensure High Protein TIDWM per MD/pt request; consider decreasing frequency or discontinuing 3. Routine bowel care 4. Scaled weight this admit; weekly scaled weights thereafter Addendum: 10/05/21 at [address] Amended: Links added. Addendum: 10/05/21 at [address] i have reviewed assessment by international broadcast music librarian
[2021-10-05 14:31] VITALS: BP 99/53
[2021-10-05] MEDS: bisacodyl 10mg suppository rectal RC PRN (17:16)
--- NOTE | 2021-10-05 18:30 | NUR ---
Wound care done with nursing teacher. Patient repositioned multiple times, encouraged to lay on back or left side to relieve pressure form right side. Patient requested suppository at end of shift, he is still waiting on BM.
--- NOTE | 2021-10-05 18:31 | NUR ---
Problems reprioritized. Patient report given, questions answered & plan of care reviewed with Alma KUMAR.
--- NOTE | 2021-10-05 18:31 | NUR ---
Patient in room [facility]. I have received report from STACY Mesa and had the opportunity to ask questions and assume patient care.
[2021-10-05 20:00] VITALS: BP 134/68
[2021-10-05] MEDS: atorvastatin 20mg tablet PO SCH (20:18)
[2021-10-05] MEDS: tamsulosin 0.4mg capsule PO SCH (20:18)
[2021-10-05] MEDS: amitriptyline 25mg tablet PO SCH (20:18)
[2021-10-06 00:01] VITALS: BP 130/71
[2021-10-06] MEDS: baclofen 10mg tablet PO PRN ×2 (01:43→13:22)
[2021-10-06] MEDS: HYDROcodone/acetaminophen 10/325mg tab PO PRN ×3 (04:08→17:40)
[2021-10-06] MEDS: traMADol 50MG tablet PO PRN ×3 (05:56→21:29)
--- NOTE | 2021-10-06 06:29 | NUR ---
Problems reprioritized. Patient report given, questions answered & plan of care reviewed with STACY Mesa.
[2021-10-06 07:00] VITALS: BP 95/54
[2021-10-06] MEDS: heparin, porcine 5000 units/ml vial SQ SCH ×2 (08:00→20:30)
[2021-10-06] MEDS: K and/or MAG REPLACEMENT MC SCH ×2 (08:00→20:00)
[2021-10-06] MEDS: metoprolol tartrate 50mg tablet PO SCH ×2 (08:00→20:00)
[2021-10-06] MEDS: pantoprazole 40mg Tablet.DR PO SCH (08:22)
[2021-10-06] MEDS: tolterodine 2mg SR capsule (24hr) PO SCH (08:22)
[2021-10-06] MEDS: docusate sod 100mg capsule PO SCH ×2 (08:22→20:29)
[2021-10-06] MEDS: duloxetine 30mg CAPSULE.DR PO SCH (08:22)
[2021-10-06] MEDS: divalproex 250mg tablet, delayed-release PO SCH ×2 (08:22→20:29)
[2021-10-06] MEDS: primidone 50mg tablet PO SCH (08:23)
[2021-10-06] MEDS: aspirin 81mg, enteric-coated 1 TAB TABLET.DR PO SCH (08:23)
[2021-10-06] MEDS: magnesium oxide 400mg tablet PO SCH ×2 (08:23→20:29)
[2021-10-06] MEDS: lactose-reduced food (Ensure High Protein) 237ml bottle PO SCH ×3 (08:28→18:00)
--- NOTE | 2021-10-06 08:34 | NUR ---
PAGER ID: [phone] MESSAGE: [phone]. Should we get recent labs? Also, patient pulled out IV, does he need one? Bonita KUMAR [phone]
[2021-10-06 11:00] VITALS: BP 101/47
[2021-10-06 11:06] LABS: BASOPHILS # (AUTO) 0.1 X10'3 (0-0.2); BASOPHILS % (AUTO) 0.8 % (0-1); EOSINOPHILS # (AUTO) 0.6 X10'3 (0-0.9); EOSINOPHILS % (AUTO) 5.3 % (0-6); HEMATOCRIT 32.1 % (42.0-52.0); HEMOGLOBIN 10.6 g/dl (14.0-17.9); LYMPHOCYTES # (AUTO) 2.4 X10'3 (1.1-4.8); LYMPHOCYTES % (AUTO) 21.2 % (21-51); MEAN CORPUSCULAR HEMOGLOBIN 30.4 PG (27.0-31.0); MEAN CORPUSCULAR VOLUME 92.1 FL (78-98); MEAN PLATELET VOLUME 7.4 FL (7.4-10.4); MONOCYTES # (AUTO) 1.2 X10'3 (0-0.9); MONOCYTES % (AUTO) 10.7 % (2-12); PLATELET COUNT 310 X10'3 (140-440); RED BLOOD COUNT 3.49 X10'6 (4.70-6.10); RED CELL DISTRIBUTION WIDTH 14.9 % (11.5-14.5); WHITE BLOOD COUNT 11.2 X10'3 (4.5-11.0)
[2021-10-06 11:25] LABS: ALANINE AMINOTRANSFERASE 34 U/L (12-78); ALBUMIN/GLOBULIN RATIO 0.9 (1.1-1.5); ALKALINE PHOSPHATASE 143 IU/L (46-116); ANION GAP 7 (8-16); ASPARTATE AMINO TRANSFERASE 18 U/L (10-37); BILIRUBIN,TOTAL 0.2 MG/DL (0.1-1.0); BLOOD UREA NITROGEN 35 MG/DL (7-18); BUN/CREATININE RATIO 41.7 (5.4-32.0); CALCIUM 8.9 MG/DL (8.5-10.1); CHLORIDE 93 MMOL/L (99-107); CREATININE 0.84 MG/DL (0.60-1.10); GLUCOSE 102 MG/DL (70-104); POTASSIUM 4.5 MMOL/L (3.5-5.1); SODIUM 127 MMOL/L (135-145); TOTAL CARBON DIOXIDE 26.9 MMOL/L (24-32); TOTAL PROTEIN 6.4 G/DL (6.4-8.2); eGFR 90 ML/MIN
--- NOTE | 2021-10-06 18:19 | NUR ---
Problems reprioritized. Patient report given, questions answered & plan of care reviewed with Alma KUMAR.
--- NOTE | 2021-10-06 18:49 | NUR ---
Patient in room [facility]. I have received report from STACY Mesa and had the opportunity to ask questions and assume patient care.
[2021-10-06 20:00] VITALS: BP 98/58
[2021-10-06] MEDS: atorvastatin 20mg tablet PO SCH (20:29)
[2021-10-06] MEDS: tamsulosin 0.4mg capsule PO SCH (20:29)
[2021-10-06] MEDS: amitriptyline 25mg tablet PO SCH (20:29)
[2021-10-07 00:01] VITALS: BP 100/52
[2021-10-07] MEDS: HYDROcodone/acetaminophen 10/325mg tab PO PRN ×4 (00:07→17:57)
--- NOTE | 2021-10-07 06:10 | NUR ---
Patient in room [facility]. I have received report from STACY Marquez and had the opportunity to ask questions and assume patient care.
--- NOTE | 2021-10-07 06:49 | NUR ---
Problems reprioritized. Patient report given, questions answered & plan of care reviewed with STACY Singh.
[2021-10-07] MEDS: lactose-reduced food (Ensure High Protein) 237ml bottle PO SCH ×3 (07:56→18:36)
[2021-10-07 07:58] LABS: BASOPHILS # (AUTO) 0.1 X10'3 (0-0.2); EOSINOPHILS # (AUTO) 0.3 X10'3 (0-0.9); EOSINOPHILS % (AUTO) 4.6 % (0-6); HEMATOCRIT 30.8 % (42.0-52.0); HEMOGLOBIN 10.6 g/dl (14.0-17.9); LYMPHOCYTES # (AUTO) 2.1 X10'3 (1.1-4.8); LYMPHOCYTES % (AUTO) 27.7 % (21-51); MEAN CORPUSCULAR HEMOGLOBIN 31.7 PG (27.0-31.0); MEAN CORPUSCULAR HGB CONC 34.4 g/dL (33.0-36.5); MEAN CORPUSCULAR VOLUME 92.1 FL (78-98); MEAN PLATELET VOLUME 7.3 FL (7.4-10.4); MONOCYTES # (AUTO) 0.7 X10'3 (0-0.9); MONOCYTES % (AUTO) 8.6 % (2-12); NEUTROPHILS # (AUTO) 4.5 X10'3 (1.8-7.7); NEUTROPHILS % (AUTO) 58.1 % (42-75); PLATELET COUNT 296 X10'3 (140-440); RED BLOOD COUNT 3.34 X10'6 (4.70-6.10); WHITE BLOOD COUNT 7.7 X10'3 (4.5-11.0)
[2021-10-07 08:00] VITALS: BP 126/76
[2021-10-07 08:57] LABS: TOTAL PROTEIN 6.2 G/DL (6.4-8.2)
[2021-10-07 09:01] LABS: ALANINE AMINOTRANSFERASE 34 U/L (12-78); ALBUMIN 2.9 G/DL (3.4-5.0); ALBUMIN/GLOBULIN RATIO 0.9 (1.1-1.5); ALKALINE PHOSPHATASE 133 IU/L (46-116); ANION GAP 4 (8-16); ASPARTATE AMINO TRANSFERASE 19 U/L (10-37); BILIRUBIN,TOTAL 0.2 MG/DL (0.1-1.0); BLOOD UREA NITROGEN 36 MG/DL (7-18); BUN/CREATININE RATIO 48.6 (5.4-32.0); CALCIUM 8.6 MG/DL (8.5-10.1); CHLORIDE 97 MMOL/L (99-107); CREATININE 0.74 MG/DL (0.60-1.10); GLUCOSE 84 MG/DL (70-104); POTASSIUM 4.7 MMOL/L (3.5-5.1); SODIUM 130 MMOL/L (135-145); TOTAL CARBON DIOXIDE 29.5 MMOL/L (24-32); eGFR > 90 ML/MIN
[2021-10-07 09:08] LABS: MAGNESIUM 1.8 MG/DL (1.5-2.4)
[2021-10-07 11:00] VITALS: BP 102/57
[2021-10-07] MEDS: aspirin 81mg, enteric-coated 1 TAB TABLET.DR PO SCH (12:16)
[2021-10-07] MEDS: magnesium oxide 400mg tablet PO SCH ×2 (12:16→21:07)
[2021-10-07] MEDS: primidone 50mg tablet PO SCH (12:17)
[2021-10-07] MEDS: docusate sod 100mg capsule PO SCH ×2 (12:17→21:22)
[2021-10-07] MEDS: metoprolol tartrate 50mg tablet PO SCH ×2 (12:17→21:10)
[2021-10-07] MEDS: tolterodine 2mg SR capsule (24hr) PO SCH (12:17)
[2021-10-07] MEDS: duloxetine 30mg CAPSULE.DR PO SCH (12:18)
[2021-10-07] MEDS: pantoprazole 40mg Tablet.DR PO SCH (12:18)
[2021-10-07] MEDS: divalproex 250mg tablet, delayed-release PO SCH ×2 (12:18→21:23)
[2021-10-07] MEDS: K and/or MAG REPLACEMENT MC SCH ×2 (12:19→20:00)
[2021-10-07] MEDS: heparin, porcine 5000 units/ml vial SQ SCH ×2 (12:20→21:09)
[2021-10-07] MEDS: traMADol 50MG tablet PO PRN ×2 (14:13→23:05)
--- NOTE | 2021-10-07 18:10 | NUR ---
Patient in room [facility]. I have received report from STACY Singh and had the opportunity to ask questions and assume patient care.
--- NOTE | 2021-10-07 18:30 | NUR ---
Problems reprioritized. Patient report given, questions answered & plan of care reviewed with STACY Marquez.
[2021-10-07 20:00] VITALS: BP 110/61
[2021-10-07] MEDS: bisacodyl 10mg suppository rectal RC PRN (21:06)
[2021-10-07] MEDS: atorvastatin 20mg tablet PO SCH (21:07)
[2021-10-07] MEDS: docusate sod 250mg capsule PO PRN (21:07)
[2021-10-07] MEDS: polyethylene glycol 3350 17gm powd pack PO SCH (21:07)
[2021-10-07] MEDS: amitriptyline 25mg tablet PO SCH (21:07)
[2021-10-07] MEDS: tamsulosin 0.4mg capsule PO SCH (21:07)
[2021-10-08 00:01] VITALS: BP 142/54
[2021-10-08] MEDS: HYDROcodone/acetaminophen 10/325mg tab PO PRN ×4 (00:23→19:06)
[2021-10-08 06:20] LABS: ALANINE AMINOTRANSFERASE 36 U/L (12-78); ALBUMIN 2.8 G/DL (3.4-5.0); ALBUMIN/GLOBULIN RATIO 0.9 (1.1-1.5); ALKALINE PHOSPHATASE 132 IU/L (46-116); ANION GAP 4 (8-16); ASPARTATE AMINO TRANSFERASE 23 U/L (10-37); BILIRUBIN,TOTAL 0.3 MG/DL (0.1-1.0); BLOOD UREA NITROGEN 37 MG/DL (7-18); BUN/CREATININE RATIO 54.4 (5.4-32.0); CALCIUM 8.6 MG/DL (8.5-10.1); CHLORIDE 95 MMOL/L (99-107); CREATININE 0.68 MG/DL (0.60-1.10); GLUCOSE 82 MG/DL (70-104); MAGNESIUM 1.5 MG/DL (1.5-2.4); POTASSIUM 4.8 MMOL/L (3.5-5.1); SODIUM 126 MMOL/L (135-145); TOTAL CARBON DIOXIDE 27.5 MMOL/L (24-32); eGFR > 90 ML/MIN
[2021-10-08 06:30] VITALS: BP 122/52
--- NOTE | 2021-10-08 06:40 | NUR ---
Patient in room [facility]. I have received report from STACY Marquez and had the opportunity to ask questions and assume patient care.
[2021-10-08] MEDS: K and/or MAG REPLACEMENT MC SCH ×2 (07:30→19:46)
[2021-10-08] MEDS: lactose-reduced food (Ensure High Protein) 237ml bottle PO SCH ×3 (07:31→18:04)
[2021-10-08] MEDS: traMADol 50MG tablet PO PRN ×2 (10:32→18:08)
[2021-10-08] MEDS: tolterodine 2mg SR capsule (24hr) PO SCH (11:01)
[2021-10-08] MEDS: duloxetine 30mg CAPSULE.DR PO SCH (11:02)
[2021-10-08] MEDS: metoprolol tartrate 50mg tablet PO SCH ×2 (11:02→21:08)
[2021-10-08] MEDS: aspirin 81mg, enteric-coated 1 TAB TABLET.DR PO SCH (11:02)
[2021-10-08] MEDS: divalproex 250mg tablet, delayed-release PO SCH ×2 (11:02→21:09)
[2021-10-08] MEDS: primidone 50mg tablet PO SCH (11:02)
[2021-10-08] MEDS: pantoprazole 40mg Tablet.DR PO SCH (11:02)
[2021-10-08] MEDS: docusate sod 100mg capsule PO SCH ×2 (11:02→21:09)
[2021-10-08] MEDS: magnesium oxide 400mg tablet PO SCH ×2 (11:02→21:08)
[2021-10-08] MEDS: heparin, porcine 5000 units/ml vial SQ SCH ×2 (11:03→21:08)
[2021-10-08 14:10] LABS: CLARITY,URINE CLEAR (Clear); COLOR,URINE YELLOW (Yellow); GLUCOSE, URINE NEGATIVE (Neg); KETONES,URINE NEGATIVE (Neg); LEUKOCYTE ESTERASE ,URINE NEGATIVE (Neg); NITRITES, URINE NEGATIVE (Neg); OCCULT BLOOD,URINE NEGATIVE (Neg); PH,URINE 7.5 (4.8-8.0); PROTEIN,URINE NEGATIVE (Neg); UROBILINOGEN,URINE 0.2 E.U/dL (0.2-1.0)
[2021-10-08 14:15] LABS: UA COLLECTION TYPE NON-SPECIFIED
--- NOTE | 2021-10-08 18:30 | NUR ---
Problems reprioritized. Patient report given, questions answered & plan of care reviewed with STACY Whitley.
[2021-10-08 20:00] VITALS: BP 121/54
[2021-10-08] MEDS: polyethylene glycol 3350 17gm powd pack PO SCH (21:07)
[2021-10-08] MEDS: tamsulosin 0.4mg capsule PO SCH (21:08)
[2021-10-08] MEDS: amitriptyline 25mg tablet PO SCH (21:09)
[2021-10-08] MEDS: atorvastatin 20mg tablet PO SCH (21:09)
[2021-10-08] MEDS: baclofen 10mg tablet PO PRN (21:17)
[2021-10-09] VITALS: BP 93/48
[2021-10-09] MEDS: HYDROcodone/acetaminophen 10/325mg tab PO PRN ×4 (02:15→23:15)
[2021-10-09] MEDS: traMADol 50MG tablet PO PRN ×3 (02:54→19:36)
--- NOTE | 2021-10-09 06:10 | NUR ---
Patient in room [facility]. I have received report from STACY Whitley and had the opportunity to ask questions and assume patient care.
[2021-10-09 06:30] VITALS: BP 106/48
[2021-10-09 07:26] LABS: ALANINE AMINOTRANSFERASE 43 U/L (12-78); ALBUMIN 2.9 G/DL (3.4-5.0); ALBUMIN/GLOBULIN RATIO 0.9 (1.1-1.5); ALKALINE PHOSPHATASE 143 IU/L (46-116); ANION GAP 8 (8-16); ASPARTATE AMINO TRANSFERASE 24 U/L (10-37); BILIRUBIN,TOTAL 0.2 MG/DL (0.1-1.0); BLOOD UREA NITROGEN 36 MG/DL (7-18); CALCIUM 8.4 MG/DL (8.5-10.1); CHLORIDE 93 MMOL/L (99-107); CREATININE 0.72 MG/DL (0.60-1.10); GLUCOSE 93 MG/DL (70-104); MAGNESIUM 1.6 MG/DL (1.5-2.4); POTASSIUM 4.4 MMOL/L (3.5-5.1); SODIUM 128 MMOL/L (135-145); TOTAL CARBON DIOXIDE 27.4 MMOL/L (24-32); eGFR > 90 ML/MIN
[2021-10-09] MEDS ORDERED: mag hydrox/Alum hydrox/simeth 30ml oral suspension PO PRN (07:35)
[2021-10-09] MEDS: K and/or MAG REPLACEMENT MC SCH ×2 (08:00→19:29)
[2021-10-09] MEDS: lactose-reduced food (Ensure High Protein) 237ml bottle PO SCH ×3 (08:00→18:26)
[2021-10-09] MEDS: magnesium oxide 400mg tablet PO SCH ×2 (09:02→19:30)
[2021-10-09] MEDS: duloxetine 30mg CAPSULE.DR PO SCH (09:03)
[2021-10-09] MEDS: aspirin 81mg, enteric-coated 1 TAB TABLET.DR PO SCH (09:03)
[2021-10-09] MEDS: pantoprazole 40mg Tablet.DR PO SCH (09:03)
[2021-10-09] MEDS: tolterodine 2mg SR capsule (24hr) PO SCH (09:03)
[2021-10-09] MEDS: divalproex 250mg tablet, delayed-release PO SCH ×2 (09:03→19:30)
[2021-10-09] MEDS: primidone 50mg tablet PO SCH (09:04)
[2021-10-09] MEDS: heparin, porcine 5000 units/ml vial SQ SCH ×2 (09:04→19:37)
[2021-10-09] MEDS: docusate sod 100mg capsule PO SCH ×2 (09:04→19:30)
[2021-10-09] MEDS: metoprolol tartrate 50mg tablet PO SCH ×2 (09:04→19:42)
[2021-10-09 11:00] VITALS: BP 95/43
[2021-10-09] MEDS: baclofen 10mg tablet PO PRN (17:39)
--- NOTE | 2021-10-09 18:10 | NUR ---
Problems reprioritized. Patient report given, questions answered & plan of care reviewed with STACY Avila.
[2021-10-09 18:30] VITALS: BP 86/42
[2021-10-09] MEDS: tamsulosin 0.4mg capsule PO SCH (20:49)
[2021-10-09] MEDS: atorvastatin 20mg tablet PO SCH (20:49)
[2021-10-09] MEDS: amitriptyline 25mg tablet PO SCH (20:49)
[2021-10-09] MEDS: polyethylene glycol 3350 17gm powd pack PO SCH (20:49)
[2021-10-10] VITALS: BP 110/49
[2021-10-10] MEDS: traMADol 50MG tablet PO PRN ×3 (04:17→19:12)
[2021-10-10] MEDS: HYDROcodone/acetaminophen 10/325mg tab PO PRN ×3 (05:26→17:56)
[2021-10-10 06:30] LABS: ALANINE AMINOTRANSFERASE 37 U/L (12-78); ALBUMIN 2.8 G/DL (3.4-5.0); ALBUMIN/GLOBULIN RATIO 0.9 (1.1-1.5); ALKALINE PHOSPHATASE 133 IU/L (46-116); ANION GAP 1 (8-16); ASPARTATE AMINO TRANSFERASE 19 U/L (10-37); BILIRUBIN,TOTAL 0.3 MG/DL (0.1-1.0); BLOOD UREA NITROGEN 36 MG/DL (7-18); BUN/CREATININE RATIO 49.3 (5.4-32.0); CALCIUM 8.4 MG/DL (8.5-10.1); CHLORIDE 94 MMOL/L (99-107); CREATININE 0.73 MG/DL (0.60-1.10); GLUCOSE 84 MG/DL (70-104); MAGNESIUM 1.7 MG/DL (1.5-2.4); SODIUM 126 MMOL/L (135-145); TOTAL CARBON DIOXIDE 30.6 MMOL/L (24-32); TOTAL PROTEIN 5.9 G/DL (6.4-8.2); eGFR > 90 ML/MIN
--- NOTE | 2021-10-10 06:30 | NUR ---
Problems reprioritized. Patient report given, questions answered & plan of care reviewed with JOHN. Addendum: 10/10/21 at 0641 by Jon Wan RN Amended: Links added.
--- NOTE | 2021-10-10 06:48 | NUR ---
Patient in room [facility]. I have received report from Austin KUMAR and had the opportunity to ask questions and assume patient care.
[2021-10-10 07:35] VITALS: BP 117/59
[2021-10-10] MEDS: pantoprazole 40mg Tablet.DR PO SCH (07:48)
[2021-10-10] MEDS: tolterodine 2mg SR capsule (24hr) PO SCH (07:48)
[2021-10-10] MEDS: metoprolol tartrate 50mg tablet PO SCH ×2 (07:49→21:51)
[2021-10-10] MEDS: docusate sod 100mg capsule PO SCH ×2 (07:49→21:47)
[2021-10-10] MEDS: duloxetine 30mg CAPSULE.DR PO SCH (07:50)
[2021-10-10] MEDS: divalproex 250mg tablet, delayed-release PO SCH ×2 (07:50→21:48)
[2021-10-10] MEDS: aspirin 81mg, enteric-coated 1 TAB TABLET.DR PO SCH (07:50)
[2021-10-10] MEDS: magnesium oxide 400mg tablet PO SCH ×2 (07:50→21:48)
[2021-10-10] MEDS: primidone 50mg tablet PO SCH (07:50)
[2021-10-10] MEDS: heparin, porcine 5000 units/ml vial SQ SCH ×2 (07:53→21:54)
[2021-10-10] MEDS: normal saline 1000ml 1,000 ML IV SCH (07:54)
[2021-10-10] MEDS: lactose-reduced food (Ensure High Protein) 237ml bottle PO SCH ×3 (07:55→18:00)
[2021-10-10] MEDS: K and/or MAG REPLACEMENT MC SCH ×2 (08:00→20:00)
[2021-10-10 12:50] VITALS: BP 97/41
--- NOTE | 2021-10-10 15:37 | NUR ---
reviewed students documentation
[2021-10-10] MEDS: bisacodyl 10mg suppository rectal RC PRN (15:48)
[2021-10-10] MEDS: baclofen 10mg tablet PO PRN (16:54)
--- NOTE | 2021-10-10 17:04 | NUR ---
supervised student's med pass
--- NOTE | 2021-10-10 18:50 | NUR ---
Patient in room [facility]. I have received report from Kellee KUMAR and had the opportunity to ask questions and assume patient care.
--- NOTE | 2021-10-10 18:52 | NUR ---
patient medicated for pain in left knee with good coverage. Educated about staggering meds which worked well today. Large BM . wound care done to right hip. Report given to Henrietta KUMAR
[2021-10-10 19:00] VITALS: BP 144/67
--- NOTE | 2021-10-10 19:00 | NUR ---
Patient refused Addendum: 10/10/21 at 2305 by Henrietta Hutchinson RN Amended: Links added.
[2021-10-10] MEDS: tamsulosin 0.4mg capsule PO SCH (21:50)
[2021-10-10] MEDS: atorvastatin 20mg tablet PO SCH (21:50)
[2021-10-10] MEDS: amitriptyline 25mg tablet PO SCH (21:52)
[2021-10-10] MEDS: polyethylene glycol 3350 17gm powd pack PO SCH (21:56)
[2021-10-11] VITALS: BP 117/53
[2021-10-11] MEDS: HYDROcodone/acetaminophen 10/325mg tab PO PRN ×4 (00:02→22:06)
[2021-10-11] MEDS: baclofen 10mg tablet PO PRN ×2 (01:16→17:06)
[2021-10-11] MEDS: normal saline 1000ml 1,000 ML IV SCH ×2 (03:58→22:03)
[2021-10-11] MEDS: traMADol 50MG tablet PO PRN ×2 (03:59→17:05)
[2021-10-11 05:50] LABS: ALANINE AMINOTRANSFERASE 35 U/L (12-78); ALBUMIN 2.7 G/DL (3.4-5.0); ALBUMIN/GLOBULIN RATIO 0.9 (1.1-1.5); ALKALINE PHOSPHATASE 135 IU/L (46-116); ANION GAP 7 (8-16); ASPARTATE AMINO TRANSFERASE 18 U/L (10-37); BILIRUBIN,TOTAL 0.2 MG/DL (0.1-1.0); BLOOD UREA NITROGEN 33 MG/DL (7-18); BUN/CREATININE RATIO 41.8 (5.4-32.0); CALCIUM 8.7 MG/DL (8.5-10.1); CHLORIDE 95 MMOL/L (99-107); CREATININE 0.79 MG/DL (0.60-1.10); GLUCOSE 78 MG/DL (70-104); MAGNESIUM 1.7 MG/DL (1.5-2.4); POTASSIUM 4.7 MMOL/L (3.5-5.1); SODIUM 129 MMOL/L (135-145); TOTAL CARBON DIOXIDE 26.8 MMOL/L (24-32); TOTAL PROTEIN 5.8 G/DL (6.4-8.2); eGFR > 90 ML/MIN
--- NOTE | 2021-10-11 06:20 | NUR ---
Problems reprioritized. Patient report given, questions answered & plan of care reviewed with Janet KUMAR.
--- NOTE | 2021-10-11 06:43 | NUR ---
Patient in room [facility]. I have received report from STACY Shrestha and had the opportunity to ask questions and assume patient care.
[2021-10-11 07:00] VITALS: BP 128/54
[2021-10-11] MEDS: K and/or MAG REPLACEMENT MC SCH ×2 (08:00→20:00)
[2021-10-11] MEDS: lactose-reduced food (Ensure High Protein) 237ml bottle PO SCH ×3 (08:00→18:06)
[2021-10-11] MEDS: duloxetine 30mg CAPSULE.DR PO SCH (08:33)
[2021-10-11] MEDS: docusate sod 100mg capsule PO SCH ×2 (08:33→22:04)
[2021-10-11] MEDS: primidone 50mg tablet PO SCH (08:34)
[2021-10-11] MEDS: metoprolol tartrate 50mg tablet PO SCH ×2 (08:34→22:16)
[2021-10-11] MEDS: magnesium oxide 400mg tablet PO SCH ×2 (08:34→22:05)
[2021-10-11] MEDS: pantoprazole 40mg Tablet.DR PO SCH (08:34)
[2021-10-11] MEDS: tolterodine 2mg SR capsule (24hr) PO SCH (08:34)
[2021-10-11] MEDS: aspirin 81mg, enteric-coated 1 TAB TABLET.DR PO SCH (08:34)
[2021-10-11] MEDS: divalproex 250mg tablet, delayed-release PO SCH ×2 (08:34→22:05)
[2021-10-11] MEDS: heparin, porcine 5000 units/ml vial SQ SCH ×2 (08:35→22:12)
[2021-10-11 10:00] VITALS: BP 99/43
--- NOTE | 2021-10-11 13:47 | NUR ---
Reassessment: Pt seen by wound care 10/07, per report pt with stage II PI to right lateral trochanter and right lateral ankle. At f/u wound care assessment today (10/11) both PIs are slightly improved in size and there are no new skin areas of breakdown. Pt now on a regular diet and continues eating well with mostly 100% PO intake. Pt also receiving an Ensure High Protein TID of which pt is mostly consuming 100% of. Overall pt exceeding estimated nutrient needs. Recommend decreasing ONS frequency to BID versus ONS change to Alexandre shake BID for wound healing. Alternatively, pt could receive double protein with meals and have ONS discontinued if physician agreeable. Pt continues with hyponatremia, currently receiving NS at 50 mL/hr and will now receive salt packets with meals since now on a regular diet, previously on a heart healthy diet. LBM 10/10. Receiving routine and PRN bowel care. Will continue to follow. Recommendations: 1. Continue regular diet in view of no significant cardiac hx, hyponatremia, and lipid panel WNL with the exception of low LDL 2. Ensure High Protein TIDWM per MD/pt request; consider decreasing frequency or discontinuing given adequate PO intake of meals; monitor need for Alexandre ONS for wound healing 3. Routine bowel care 4. Scaled weight this admit; weekly scaled weights thereafter Addendum: 10/11/21 at [address] Amended: Links added.
--- NOTE | 2021-10-11 18:29 | NUR ---
Problems reprioritized. Patient report given, questions answered & plan of care reviewed with STACY BURNETT.
--- NOTE | 2021-10-11 18:30 | NUR ---
Patient in room [facility]. I have received report from Janet Canseco and had the opportunity to ask questions and assume patient care.
[2021-10-11 19:00] VITALS: BP 122/51
[2021-10-11] MEDS: tamsulosin 0.4mg capsule PO SCH (22:08)
[2021-10-11] MEDS: atorvastatin 20mg tablet PO SCH (22:08)
[2021-10-11] MEDS: polyethylene glycol 3350 17gm powd pack PO SCH (22:08)
[2021-10-11] MEDS: amitriptyline 25mg tablet PO SCH (22:08)
[2021-10-12] VITALS: BP 123/53
[2021-10-12] MEDS: HYDROcodone/acetaminophen 10/325mg tab PO PRN ×4 (04:19→22:25)
[2021-10-12] MEDS: traMADol 50MG tablet PO PRN ×2 (05:01→12:57)
--- NOTE | 2021-10-12 06:23 | NUR ---
Patient in room [facility]. I have received report from STACY Shrestha and had the opportunity to ask questions and assume patient care.
--- NOTE | 2021-10-12 06:25 | NUR ---
Problems reprioritized. Patient report given, questions answered & plan of care reviewed with Janet KUMAR.
[2021-10-12 06:31] LABS: ALANINE AMINOTRANSFERASE 40 U/L (12-78); ALBUMIN 2.6 G/DL (3.4-5.0); ALBUMIN/GLOBULIN RATIO 0.9 (1.1-1.5); ALKALINE PHOSPHATASE 136 IU/L (46-116); ANION GAP 8 (8-16); ASPARTATE AMINO TRANSFERASE 20 U/L (10-37); BILIRUBIN,TOTAL 0.2 MG/DL (0.1-1.0); BLOOD UREA NITROGEN 29 MG/DL (7-18); BUN/CREATININE RATIO 39.2 (5.4-32.0); CALCIUM 8.3 MG/DL (8.5-10.1); CHLORIDE 95 MMOL/L (99-107); CREATININE 0.74 MG/DL (0.60-1.10); GLUCOSE 82 MG/DL (70-104); MAGNESIUM 1.7 MG/DL (1.5-2.4); POTASSIUM 4.7 MMOL/L (3.5-5.1); SODIUM 128 MMOL/L (135-145); TOTAL CARBON DIOXIDE 25.3 MMOL/L (24-32); TOTAL PROTEIN 5.6 G/DL (6.4-8.2); eGFR > 90 ML/MIN
[2021-10-12 07:00] VITALS: BP 137/59
[2021-10-12] MEDS: K and/or MAG REPLACEMENT MC SCH ×2 (08:00→20:00)
[2021-10-12] MEDS: divalproex 250mg tablet, delayed-release PO SCH ×2 (08:16→22:23)
[2021-10-12] MEDS: duloxetine 30mg CAPSULE.DR PO SCH (08:16)
[2021-10-12] MEDS: pantoprazole 40mg Tablet.DR PO SCH (08:17)
[2021-10-12] MEDS: magnesium oxide 400mg tablet PO SCH ×2 (08:17→22:23)
[2021-10-12] MEDS: docusate sod 100mg capsule PO SCH ×2 (08:17→22:26)
[2021-10-12] MEDS: metoprolol tartrate 50mg tablet PO SCH ×2 (08:18→22:29)
[2021-10-12] MEDS: primidone 50mg tablet PO SCH (08:18)
[2021-10-12] MEDS: aspirin 81mg, enteric-coated 1 TAB TABLET.DR PO SCH (08:19)
[2021-10-12] MEDS: tolterodine 2mg SR capsule (24hr) PO SCH (08:19)
[2021-10-12] MEDS: heparin, porcine 5000 units/ml vial SQ SCH ×2 (08:20→22:30)
[2021-10-12] MEDS: lactose-reduced food (Ensure High Protein) 237ml bottle PO SCH ×3 (08:21→18:15)
[2021-10-12 11:00] VITALS: BP 106/50
--- NOTE | 2021-10-12 18:30 | NUR ---
Patient in room [facility]. I have received report from Janet KUMAR and had the opportunity to ask questions and assume patient care.
--- NOTE | 2021-10-12 18:31 | NUR ---
Problems reprioritized. Patient report given, questions answered & plan of care reviewed with STACY Shrestha.
[2021-10-12] MEDS: normal saline 1000ml 1,000 ML IV SCH (18:52)
[2021-10-12] MEDS: baclofen 10mg tablet PO PRN (18:52)
[2021-10-12 20:00] VITALS: BP 114/81
[2021-10-12] MEDS: docusate sod 250mg capsule PO PRN (22:22)
[2021-10-12] MEDS: atorvastatin 20mg tablet PO SCH (22:22)
[2021-10-12] MEDS: tamsulosin 0.4mg capsule PO SCH (22:23)
[2021-10-12] MEDS: amitriptyline 25mg tablet PO SCH (22:23)
[2021-10-12] MEDS: polyethylene glycol 3350 17gm powd pack PO SCH (22:24)
[2021-10-13] VITALS: BP 104/50
[2021-10-13] MEDS: traMADol 50MG tablet PO PRN ×3 (02:24→21:07)
[2021-10-13] MEDS: HYDROcodone/acetaminophen 10/325mg tab PO PRN ×3 (05:34→18:11)
[2021-10-13 06:29] LABS: ALANINE AMINOTRANSFERASE 37 U/L (12-78); ALBUMIN 2.8 G/DL (3.4-5.0); ALBUMIN/GLOBULIN RATIO 0.9 (1.1-1.5); ALKALINE PHOSPHATASE 137 IU/L (46-116); ANION GAP 8 (8-16); ASPARTATE AMINO TRANSFERASE 18 U/L (10-37); BILIRUBIN,TOTAL 0.2 MG/DL (0.1-1.0); BLOOD UREA NITROGEN 31 MG/DL (7-18); BUN/CREATININE RATIO 41.9 (5.4-32.0); CALCIUM 8.8 MG/DL (8.5-10.1); CHLORIDE 95 MMOL/L (99-107); CREATININE 0.74 MG/DL (0.60-1.10); GLUCOSE 87 MG/DL (70-104); POTASSIUM 4.8 MMOL/L (3.5-5.1); SODIUM 128 MMOL/L (135-145); TOTAL CARBON DIOXIDE 25.4 MMOL/L (24-32); TOTAL PROTEIN 5.9 G/DL (6.4-8.2); eGFR > 90 ML/MIN
--- NOTE | 2021-10-13 06:40 | NUR ---
Problems reprioritized. Patient report given, questions answered & plan of care reviewed with Kellee KUMAR.
--- NOTE | 2021-10-13 06:40 | NUR ---
Patient in room [facility]. I have received report from Henrietta KUMAR and had the opportunity to ask questions and assume patient care.
[2021-10-13 07:00] VITALS: BP 120/49
[2021-10-13] MEDS: K and/or MAG REPLACEMENT MC SCH ×2 (08:00→20:00)
[2021-10-13] MEDS: lactose-reduced food (Ensure High Protein) 237ml bottle PO SCH ×3 (08:00→18:04)
[2021-10-13 08:19] VITALS: BP 120/49
[2021-10-13] MEDS: divalproex 250mg tablet, delayed-release PO SCH ×2 (08:23→21:09)
[2021-10-13] MEDS: tolterodine 2mg SR capsule (24hr) PO SCH (08:23)
[2021-10-13] MEDS: primidone 50mg tablet PO SCH (08:24)
[2021-10-13] MEDS: duloxetine 30mg CAPSULE.DR PO SCH (08:24)
[2021-10-13] MEDS: docusate sod 100mg capsule PO SCH ×2 (08:25→21:09)
[2021-10-13] MEDS: pantoprazole 40mg Tablet.DR PO SCH (08:25)
[2021-10-13] MEDS: aspirin 81mg, enteric-coated 1 TAB TABLET.DR PO SCH (08:26)
[2021-10-13] MEDS: metoprolol tartrate 50mg tablet PO SCH ×2 (08:26→21:10)
[2021-10-13] MEDS: magnesium oxide 400mg tablet PO SCH ×2 (08:26→21:08)
[2021-10-13] MEDS: heparin, porcine 5000 units/ml vial SQ SCH ×2 (08:27→21:11)
[2021-10-13] MEDS: baclofen 10mg tablet PO PRN ×2 (10:02→19:00)
[2021-10-13 11:00] VITALS: BP 101/40
[2021-10-13] MEDS: normal saline 1000ml 1,000 ML IV SCH (15:42)
[2021-10-13 18:00] VITALS: BP 112/51
--- NOTE | 2021-10-13 18:14 | NUR ---
patient appears stable medicated as per EMAR with good result for left leg pain. Worked with PT seen by DR Garcia. Awaiting placement. report given to Suleman KUMAR
[2021-10-13] MEDS: tamsulosin 0.4mg capsule PO SCH (21:07)
[2021-10-13] MEDS: atorvastatin 20mg tablet PO SCH (21:08)
[2021-10-13] MEDS: amitriptyline 25mg tablet PO SCH (21:08)
[2021-10-13] MEDS: polyethylene glycol 3350 17gm powd pack PO SCH (21:15)
[2021-10-14] MEDS: HYDROcodone/acetaminophen 10/325mg tab PO PRN ×4 (00:28→22:15)
[2021-10-14 00:55] VITALS: BP 92/47
[2021-10-14] MEDS: baclofen 10mg tablet PO PRN ×2 (04:43→17:42)
[2021-10-14] MEDS: traMADol 50MG tablet PO PRN (04:45)
--- NOTE | 2021-10-14 06:20 | NUR ---
Patient in room [facility]. I have received report from STACY Shell and had the opportunity to ask questions and assume patient care.
--- NOTE | 2021-10-14 06:20 | NUR ---
Problems reprioritized. Patient report given, questions answered & plan of care reviewed with STACY Singh.
[2021-10-14 06:22] LABS: BASOPHILS # (AUTO) 0.1 X10'3 (0-0.2); BASOPHILS % (AUTO) 1.3 % (0-1); EOSINOPHILS # (AUTO) 0.7 X10'3 (0-0.9); EOSINOPHILS % (AUTO) 7.4 % (0-6); HEMATOCRIT 29.4 % (42.0-52.0); HEMOGLOBIN 10.1 g/dl (14.0-17.9); LYMPHOCYTES # (AUTO) 2.5 X10'3 (1.1-4.8); LYMPHOCYTES % (AUTO) 26.2 % (21-51); MEAN CORPUSCULAR HEMOGLOBIN 32.1 PG (27.0-31.0); MEAN CORPUSCULAR HGB CONC 34.3 g/dL (33.0-36.5); MEAN CORPUSCULAR VOLUME 93.6 FL (78-98); MEAN PLATELET VOLUME 8.2 FL (7.4-10.4); MONOCYTES # (AUTO) 0.7 X10'3 (0-0.9); MONOCYTES % (AUTO) 7.5 % (2-12); NEUTROPHILS # (AUTO) 5.5 X10'3 (1.8-7.7); NEUTROPHILS % (AUTO) 57.6 % (42-75); PLATELET COUNT 215 X10'3 (140-440); RED BLOOD COUNT 3.14 X10'6 (4.70-6.10); RED CELL DISTRIBUTION WIDTH 14.8 % (11.5-14.5); WHITE BLOOD COUNT 9.5 X10'3 (4.5-11.0)
[2021-10-14 06:30] VITALS: BP 100/51
[2021-10-14] MEDS: K and/or MAG REPLACEMENT MC SCH ×2 (07:35→20:00)
[2021-10-14] MEDS: lactose-reduced food (Ensure High Protein) 237ml bottle PO SCH ×3 (07:35→17:39)
[2021-10-14] MEDS: tolterodine 2mg SR capsule (24hr) PO SCH (09:19)
[2021-10-14] MEDS: aspirin 81mg, enteric-coated 1 TAB TABLET.DR PO SCH (09:20)
[2021-10-14] MEDS: divalproex 250mg tablet, delayed-release PO SCH ×2 (09:20→20:15)
[2021-10-14] MEDS: magnesium oxide 400mg tablet PO SCH ×2 (09:20→20:15)
[2021-10-14] MEDS: docusate sod 100mg capsule PO SCH ×2 (09:20→20:14)
[2021-10-14] MEDS: metoprolol tartrate 50mg tablet PO SCH ×2 (09:20→20:00)
[2021-10-14] MEDS: duloxetine 30mg CAPSULE.DR PO SCH (09:20)
[2021-10-14] MEDS: primidone 50mg tablet PO SCH (09:21)
[2021-10-14] MEDS: heparin, porcine 5000 units/ml vial SQ SCH ×2 (09:21→20:18)
[2021-10-14] MEDS: pantoprazole 40mg Tablet.DR PO SCH (09:21)
[2021-10-14 11:00] VITALS: BP 102/50
[2021-10-14 18:00] VITALS: BP 101/44
--- NOTE | 2021-10-14 18:55 | NUR ---
Problems reprioritized. Patient report given, questions answered & plan of care reviewed with STACY Pool.
[2021-10-14] MEDS: tamsulosin 0.4mg capsule PO SCH (20:14)
[2021-10-14] MEDS: amitriptyline 25mg tablet PO SCH (20:15)
[2021-10-14] MEDS: atorvastatin 20mg tablet PO SCH (20:16)
[2021-10-14] MEDS: polyethylene glycol 3350 17gm powd pack PO SCH (20:26)
[2021-10-15] VITALS: BP 120/59
[2021-10-15] MEDS: HYDROcodone/acetaminophen 10/325mg tab PO PRN ×4 (04:27→21:50)
--- NOTE | 2021-10-15 06:13 | NUR ---
Problems reprioritized. Patient report given, questions answered & plan of care reviewed with STACY Singh.
--- NOTE | 2021-10-15 06:25 | NUR ---
Patient in room [facility]. I have received report from STACY Pool and had the opportunity to ask questions and assume patient care.
[2021-10-15 06:30] VITALS: BP 148/63
[2021-10-15] MEDS: K and/or MAG REPLACEMENT MC SCH ×2 (07:14→20:00)
[2021-10-15] MEDS: lactose-reduced food (Ensure High Protein) 237ml bottle PO SCH ×3 (07:15→18:31)
[2021-10-15] MEDS: tolterodine 2mg SR capsule (24hr) PO SCH (09:58)
[2021-10-15] MEDS: pantoprazole 40mg Tablet.DR PO SCH (09:58)
[2021-10-15] MEDS: divalproex 250mg tablet, delayed-release PO SCH ×2 (09:58→21:50)
[2021-10-15] MEDS: docusate sod 100mg capsule PO SCH ×2 (09:58→21:48)
[2021-10-15] MEDS: magnesium oxide 400mg tablet PO SCH ×2 (09:58→21:49)
[2021-10-15] MEDS: heparin, porcine 5000 units/ml vial SQ SCH ×2 (09:59→21:47)
[2021-10-15] MEDS: primidone 50mg tablet PO SCH (09:59)
[2021-10-15] MEDS: duloxetine 30mg CAPSULE.DR PO SCH (09:59)
[2021-10-15] MEDS: metoprolol tartrate 50mg tablet PO SCH ×2 (09:59→21:56)
[2021-10-15] MEDS: aspirin 81mg, enteric-coated 1 TAB TABLET.DR PO SCH (10:03)
[2021-10-15 11:00] VITALS: BP 120/55
--- NOTE | 2021-10-15 18:20 | NUR ---
Problems reprioritized. Patient report given, questions answered & plan of care reviewed with STACY Shell.
--- NOTE | 2021-10-15 18:22 | NUR ---
I have received report from STACY Singh and had the opportunity to ask questions and assume patient care.
[2021-10-15 19:00] VITALS: BP 100/58
[2021-10-15] MEDS: tamsulosin 0.4mg capsule PO SCH (21:47)
[2021-10-15] MEDS: atorvastatin 20mg tablet PO SCH (21:48)
[2021-10-15] MEDS: amitriptyline 25mg tablet PO SCH (21:50)
[2021-10-15] MEDS: polyethylene glycol 3350 17gm powd pack PO SCH (21:56)
[2021-10-16] VITALS: BP 97/57
[2021-10-16] MEDS: HYDROcodone/acetaminophen 10/325mg tab PO PRN ×4 (04:19→23:15)
--- NOTE | 2021-10-16 06:15 | NUR ---
Patient in room [facility]. I have received report from STACY Shell and had the opportunity to ask questions and assume patient care.
--- NOTE | 2021-10-16 06:21 | NUR ---
Problems reprioritized. Patient report given, questions answered & plan of care reviewed with Herb.
[2021-10-16 06:30] VITALS: BP 103/49
[2021-10-16] MEDS: K and/or MAG REPLACEMENT MC SCH ×2 (07:22→20:00)
[2021-10-16] MEDS: lactose-reduced food (Ensure High Protein) 237ml bottle PO SCH ×3 (08:00→18:03)
[2021-10-16] MEDS: docusate sod 100mg capsule PO SCH ×2 (10:28→20:28)
[2021-10-16] MEDS: aspirin 81mg, enteric-coated 1 TAB TABLET.DR PO SCH (10:28)
[2021-10-16] MEDS: metoprolol tartrate 50mg tablet PO SCH ×2 (10:30→20:00)
[2021-10-16] MEDS: tolterodine 2mg SR capsule (24hr) PO SCH (10:30)
[2021-10-16] MEDS: duloxetine 30mg CAPSULE.DR PO SCH (10:30)
[2021-10-16] MEDS: divalproex 250mg tablet, delayed-release PO SCH ×2 (10:30→20:29)
[2021-10-16] MEDS: primidone 50mg tablet PO SCH (10:30)
[2021-10-16] MEDS: heparin, porcine 5000 units/ml vial SQ SCH ×2 (10:31→20:33)
[2021-10-16] MEDS: pantoprazole 40mg Tablet.DR PO SCH (10:31)
[2021-10-16] MEDS: magnesium oxide 400mg tablet PO SCH ×2 (10:31→20:30)
[2021-10-16 11:00] VITALS: BP 96/60
--- NOTE | 2021-10-16 18:20 | NUR ---
Problems reprioritized. Patient report given, questions answered & plan of care reviewed with STACY Galindo.
[2021-10-16 20:00] VITALS: BP 100/51
[2021-10-16] MEDS: polyethylene glycol 3350 17gm powd pack PO SCH (20:28)
[2021-10-16] MEDS: tamsulosin 0.4mg capsule PO SCH (20:28)
[2021-10-16] MEDS: atorvastatin 20mg tablet PO SCH (20:30)
[2021-10-16] MEDS: baclofen 10mg tablet PO PRN (20:32)
[2021-10-16] MEDS: amitriptyline 25mg tablet PO SCH (20:32)
[2021-10-17] VITALS: BP 168/99
--- NOTE | 2021-10-17 02:00 | NUR ---
pt awoke hungry given a sandwich and jello.
[2021-10-17] MEDS: HYDROcodone/acetaminophen 10/325mg tab PO PRN ×4 (05:17→23:31)
--- NOTE | 2021-10-17 06:10 | NUR ---
Problems reprioritized. Patient report given, questions answered & plan of care reviewed with STACY VALENCIA. Addendum: 10/17/21 at 0610 by Josie Hansen RN Amended: Links added.
[2021-10-17 07:28] VITALS: BP 109/47
[2021-10-17] MEDS: pantoprazole 40mg Tablet.DR PO SCH (07:52)
[2021-10-17] MEDS: heparin, porcine 5000 units/ml vial SQ SCH ×2 (07:52→19:23)
[2021-10-17] MEDS: primidone 50mg tablet PO SCH (07:53)
[2021-10-17] MEDS: metoprolol tartrate 50mg tablet PO SCH ×2 (07:53→19:21)
[2021-10-17] MEDS: divalproex 250mg tablet, delayed-release PO SCH ×2 (07:53→19:20)
[2021-10-17] MEDS: docusate sod 100mg capsule PO SCH ×2 (07:53→19:20)
[2021-10-17] MEDS: magnesium oxide 400mg tablet PO SCH ×2 (07:54→19:20)
[2021-10-17] MEDS: aspirin 81mg, enteric-coated 1 TAB TABLET.DR PO SCH (07:54)
[2021-10-17] MEDS: tolterodine 2mg SR capsule (24hr) PO SCH (07:54)
[2021-10-17] MEDS: duloxetine 30mg CAPSULE.DR PO SCH (07:54)
[2021-10-17] MEDS: lactose-reduced food (Ensure High Protein) 237ml bottle PO SCH ×3 (08:00→18:00)
[2021-10-17] MEDS: K and/or MAG REPLACEMENT MC SCH ×2 (08:00→20:00)
[2021-10-17 12:33] VITALS: BP 111/49
--- NOTE | 2021-10-17 13:53 | NUR ---
Reassessment: Pt continues on a regular diet and continues eating well with mostly 100% PO intake. Pt also receiving an Ensure High Protein TID of which pt is mostly consuming 100% of. Overall pt exceeding estimated nutrient needs. Communicated w/ RN recommendation to d/c ONS if MD agreeable, alternatively, pt could receive double protein with meals, though he is currently meeting protein needs through meal intake alone. Pt continues with hyponatremia though last lab checked 10/13. LBM 10/16 receiving routine bowel care. Will continue to monitor. Recommendations: 1. Continue regular diet in view of no significant cardiac hx, hyponatremia, and lipid panel WNL with the exception of low LDL 2. Ensure High Protein TIDWM per MD/pt request; consider discontinuing given adequate PO intake of meals; 3. Routine bowel care 4. Scaled weight this admit; weekly scaled weights thereafter Addendum: 10/17/21 at [address] Amended: Links added.
[2021-10-17] MEDS ORDERED: COVID-19 VAC, TRIS(PFIZER)/PF 30 MCG/0.3 ML VIAL IMVAC ONE (15:35)
--- NOTE | 2021-10-17 18:35 | NUR ---
Problems reprioritized. Patient report given, questions answered & plan of care reviewed with Josie KUMAR.
--- NOTE | 2021-10-17 18:36 | NUR ---
Problems reprioritized. Patient report given, questions answered & plan of care reviewed with STACY Galindo.
--- NOTE | 2021-10-17 18:43 | NUR ---
Patient in room [facility]. I have received report from STACY VALENCIA and had the opportunity to ask questions and assume patient care. Addendum: 10/17/21 at 1843 by Josie Hansen RN Amended: Links added.
[2021-10-17] MEDS: baclofen 10mg tablet PO PRN (19:19)
[2021-10-17 20:00] VITALS: BP 118/61
[2021-10-17] MEDS: polyethylene glycol 3350 17gm powd pack PO SCH (21:52)
[2021-10-17] MEDS: atorvastatin 20mg tablet PO SCH (21:53)
[2021-10-17] MEDS: amitriptyline 25mg tablet PO SCH (21:53)
[2021-10-17] MEDS: tamsulosin 0.4mg capsule PO SCH (21:53)
[2021-10-18] VITALS: BP 117/47
--- NOTE | 2021-10-18 01:00 | NUR ---
assisted pt in repositioning in bed. snack given.
--- NOTE | 2021-10-18 03:04 | NUR ---
resting eyes closed without changes.
--- NOTE | 2021-10-18 04:43 | NUR ---
resting no changes.
--- NOTE | 2021-10-18 05:59 | NUR ---
pt resting eyes closed and appears comfortable at this time.
[2021-10-18] MEDS: HYDROcodone/acetaminophen 10/325mg tab PO PRN ×3 (06:21→19:07)
--- NOTE | 2021-10-18 06:33 | NUR ---
Problems reprioritized. Patient report given, questions answered & plan of care reviewed with STACY VALENCIA. Addendum: 10/18/21 at 0636 by Josie Hansen RN Amended: Links added.
--- NOTE | 2021-10-18 06:55 | NUR ---
Patient in room [facility]. I have received report from STACY Galindo and had the opportunity to ask questions and assume patient care.
[2021-10-18 07:30] VITALS: BP 109/53
[2021-10-18] MEDS: lactose-reduced food (Ensure High Protein) 237ml bottle PO SCH ×3 (08:00→18:08)
[2021-10-18] MEDS: K and/or MAG REPLACEMENT MC SCH ×2 (08:00→20:00)
[2021-10-18] MEDS: tolterodine 2mg SR capsule (24hr) PO SCH (09:20)
[2021-10-18] MEDS: magnesium oxide 400mg tablet PO SCH ×2 (09:20→19:08)
[2021-10-18] MEDS: pantoprazole 40mg Tablet.DR PO SCH (09:20)
[2021-10-18] MEDS: divalproex 250mg tablet, delayed-release PO SCH ×2 (09:21→19:07)
[2021-10-18] MEDS: duloxetine 30mg CAPSULE.DR PO SCH (09:21)
[2021-10-18] MEDS: primidone 50mg tablet PO SCH (09:22)
[2021-10-18] MEDS: metoprolol tartrate 50mg tablet PO SCH ×2 (09:22→19:08)
[2021-10-18] MEDS: aspirin 81mg, enteric-coated 1 TAB TABLET.DR PO SCH (09:22)
[2021-10-18] MEDS: docusate sod 100mg capsule PO SCH ×2 (09:22→19:08)
[2021-10-18] MEDS: heparin, porcine 5000 units/ml vial SQ SCH ×2 (09:25→19:09)
[2021-10-18 11:50] VITALS: BP 109/60
--- NOTE | 2021-10-18 12:50 | NUR ---
Dressing changed per dr's orders, patient has blanchable redness on coccyx and buttocks area. Advised patient that he will need to rotate himself to relieve pressure from that area, every 2 hours. Patient stated he understood. Patient is able to change positions on his own.
[2021-10-18] MEDS: baclofen 10mg tablet PO PRN (14:57)
--- NOTE | 2021-10-18 18:26 | NUR ---
Problems reprioritized. Patient report given, questions answered & plan of care reviewed with STACY Calderon.
--- NOTE | 2021-10-18 18:47 | NUR ---
Problems reprioritized. Patient report given, questions answered & plan of care reviewed with Yumiko KUMAR.
[2021-10-18 20:00] VITALS: BP 107/50
[2021-10-18] MEDS: polyethylene glycol 3350 17gm powd pack PO SCH (21:00)
[2021-10-18] MEDS: atorvastatin 20mg tablet PO SCH (22:34)
[2021-10-18] MEDS: tamsulosin 0.4mg capsule PO SCH (22:34)
[2021-10-18] MEDS: amitriptyline 25mg tablet PO SCH (22:34)
[2021-10-19] VITALS: BP 94/48
[2021-10-19] MEDS: HYDROcodone/acetaminophen 10/325mg tab PO PRN ×4 (01:23→21:18)
--- NOTE | 2021-10-19 06:20 | NUR ---
Patient in room [facility]. I have received report from Yumiko KUMAR and had the opportunity to ask questions and assume patient care.
--- NOTE | 2021-10-19 06:23 | NUR ---
Problems reprioritized. Patient report given, questions answered & plan of care reviewed with STACY Ibarra.
--- NOTE | 2021-10-19 07:20 | NUR ---
Patient in room [facility]. I have received report from STACY Calderon and had the opportunity to ask questions and assume patient care.
[2021-10-19 07:30] VITALS: BP 123/53
[2021-10-19] MEDS: K and/or MAG REPLACEMENT MC SCH ×2 (08:00→19:49)
[2021-10-19] MEDS: pantoprazole 40mg Tablet.DR PO SCH (08:39)
[2021-10-19] MEDS: primidone 50mg tablet PO SCH (08:39)
[2021-10-19] MEDS: tolterodine 2mg SR capsule (24hr) PO SCH (08:40)
[2021-10-19] MEDS: aspirin 81mg, enteric-coated 1 TAB TABLET.DR PO SCH (08:40)
[2021-10-19] MEDS: magnesium oxide 400mg tablet PO SCH ×2 (08:40→20:14)
[2021-10-19] MEDS: metoprolol tartrate 50mg tablet PO SCH ×2 (08:40→20:00)
[2021-10-19] MEDS: divalproex 250mg tablet, delayed-release PO SCH ×2 (08:40→20:14)
[2021-10-19] MEDS: duloxetine 30mg CAPSULE.DR PO SCH (08:41)
[2021-10-19] MEDS: docusate sod 100mg capsule PO SCH ×2 (08:41→20:14)
[2021-10-19] MEDS: heparin, porcine 5000 units/ml vial SQ SCH ×2 (08:41→20:14)
[2021-10-19] MEDS: lactose-reduced food (Ensure High Protein) 237ml bottle PO SCH ×3 (08:43→18:00)
[2021-10-19 12:47] VITALS: BP 118/58
[2021-10-19] MEDS ORDERED: magnesium oxide 400mg tablet PO ONE (12:55)
--- NOTE | 2021-10-19 15:18 | NUR ---
Student documentation: I have reviewed and agree with all interventions, assessments performed and documented by Cat Scooby [facility] student.
[2021-10-19 18:00] VITALS: BP 106/50
--- NOTE | 2021-10-19 18:12 | NUR ---
Problems reprioritized. Patient report given, questions answered & plan of care reviewed with STACY Cruz.
--- NOTE | 2021-10-19 18:20 | NUR ---
Patient in room [facility]. I have received report from JOEL RN/ CAT STUDENT and had the opportunity to ask questions and assume patient care.
[2021-10-19] MEDS: atorvastatin 20mg tablet PO SCH (20:13)
[2021-10-19] MEDS: tamsulosin 0.4mg capsule PO SCH (20:13)
[2021-10-19] MEDS: amitriptyline 25mg tablet PO SCH (20:15)
[2021-10-19] MEDS: polyethylene glycol 3350 17gm powd pack PO SCH (20:51)
[2021-10-20 00:15] VITALS: BP 108/54
[2021-10-20] MEDS: HYDROcodone/acetaminophen 10/325mg tab PO PRN ×4 (03:26→22:25)
--- NOTE | 2021-10-20 06:25 | NUR ---
Problems reprioritized. Patient report given, questions answered & plan of care reviewed with FLORA KUMAR.
[2021-10-20 07:00] VITALS: BP 99/49
[2021-10-20] MEDS: K and/or MAG REPLACEMENT MC SCH ×2 (08:00→20:00)
[2021-10-20] MEDS: metoprolol tartrate 50mg tablet PO SCH ×2 (08:00→20:16)
[2021-10-20] MEDS: primidone 50mg tablet PO SCH (08:09)
[2021-10-20] MEDS: duloxetine 30mg CAPSULE.DR PO SCH (08:10)
[2021-10-20] MEDS: tolterodine 2mg SR capsule (24hr) PO SCH (08:10)
[2021-10-20] MEDS: aspirin 81mg, enteric-coated 1 TAB TABLET.DR PO SCH (08:10)
[2021-10-20] MEDS: divalproex 250mg tablet, delayed-release PO SCH ×2 (08:10→20:16)
[2021-10-20] MEDS: docusate sod 100mg capsule PO SCH ×2 (08:10→20:16)
[2021-10-20] MEDS: pantoprazole 40mg Tablet.DR PO SCH (08:10)
[2021-10-20] MEDS: magnesium oxide 400mg tablet PO SCH ×2 (08:10→20:16)
[2021-10-20] MEDS: heparin, porcine 5000 units/ml vial SQ SCH ×2 (08:11→20:17)
[2021-10-20] MEDS: lactose-reduced food (Ensure High Protein) 237ml bottle PO SCH ×3 (08:14→18:02)
[2021-10-20 12:08] VITALS: BP 120/63
--- NOTE | 2021-10-20 15:32 | NUR ---
Arrived in room and pt agrees to toe nail care. Nails trimmed then rober board, then placed moisturizer to feet. Noted that his heels are red but yoselyn. Educated on importance of offloading and then floated his heels. Report to nurse to pn need for daily foot care. Addendum: 10/20/21 at 1535 by Portia Wen RN Amended: Links added.
--- NOTE | 2021-10-20 18:14 | NUR ---
Problems reprioritized. Patient report given, questions answered & plan of care reviewed with MCKENNA KUMAR.
[2021-10-20 19:25] VITALS: BP 109/52
[2021-10-20] MEDS: atorvastatin 20mg tablet PO SCH (20:16)
[2021-10-20] MEDS: tamsulosin 0.4mg capsule PO SCH (20:16)
[2021-10-20] MEDS: amitriptyline 25mg tablet PO SCH (20:17)
[2021-10-20] MEDS: polyethylene glycol 3350 17gm powd pack PO SCH (20:17)
[2021-10-21] VITALS: BP 91/38
[2021-10-21] MEDS: HYDROcodone/acetaminophen 10/325mg tab PO PRN ×4 (04:22→22:51)
[2021-10-21 06:22] LABS: BASOPHILS # (AUTO) 0.1 X10'3 (0-0.2); BASOPHILS % (AUTO) 0.7 % (0-1); EOSINOPHILS # (AUTO) 0.6 X10'3 (0-0.9); EOSINOPHILS % (AUTO) 6.8 % (0-6); HEMATOCRIT 29.8 % (42.0-52.0); HEMOGLOBIN 10.4 g/dl (14.0-17.9); LYMPHOCYTES # (AUTO) 2.2 X10'3 (1.1-4.8); LYMPHOCYTES % (AUTO) 26.4 % (21-51); MEAN CORPUSCULAR HEMOGLOBIN 32.3 PG (27.0-31.0); MEAN CORPUSCULAR HGB CONC 34.8 g/dL (33.0-36.5); MEAN CORPUSCULAR VOLUME 92.7 FL (78-98); MEAN PLATELET VOLUME 7.2 FL (7.4-10.4); MONOCYTES # (AUTO) 0.8 X10'3 (0-0.9); NEUTROPHILS # (AUTO) 4.6 X10'3 (1.8-7.7); NEUTROPHILS % (AUTO) 56.1 % (42-75); PLATELET COUNT 207 X10'3 (140-440); RED BLOOD COUNT 3.22 X10'6 (4.70-6.10); RED CELL DISTRIBUTION WIDTH 14.7 % (11.5-14.5); WHITE BLOOD COUNT 8.1 X10'3 (4.5-11.0)
--- NOTE | 2021-10-21 06:32 | NUR ---
Problems reprioritized. Patient report given, questions answered & plan of care reviewed with STACY Goodson.
--- NOTE | 2021-10-21 06:39 | NUR ---
Patient in room [facility]. I have received report from meek KUMAR and had the opportunity to ask questions and assume patient care.
[2021-10-21 07:00] VITALS: BP 135/61
[2021-10-21 07:25] LABS: MAGNESIUM 1.8 MG/DL (1.5-2.4)
[2021-10-21] MEDS: lactose-reduced food (Ensure High Protein) 237ml bottle PO SCH ×3 (08:00→18:02)
[2021-10-21] MEDS: K and/or MAG REPLACEMENT MC SCH ×2 (08:00→20:00)
[2021-10-21] MEDS: pantoprazole 40mg Tablet.DR PO SCH (08:11)
[2021-10-21] MEDS: metoprolol tartrate 50mg tablet PO SCH ×2 (08:12→20:10)
[2021-10-21] MEDS: tolterodine 2mg SR capsule (24hr) PO SCH (08:12)
[2021-10-21] MEDS: primidone 50mg tablet PO SCH (08:12)
[2021-10-21] MEDS: divalproex 250mg tablet, delayed-release PO SCH ×2 (08:12→20:10)
[2021-10-21] MEDS: aspirin 81mg, enteric-coated 1 TAB TABLET.DR PO SCH (08:12)
[2021-10-21] MEDS: docusate sod 100mg capsule PO SCH ×2 (08:13→20:09)
[2021-10-21] MEDS: acetaminophen 325mg tablet PO PRN (08:13)
[2021-10-21] MEDS: duloxetine 30mg CAPSULE.DR PO SCH (08:13)
[2021-10-21] MEDS: magnesium oxide 400mg tablet PO SCH ×2 (08:13→20:10)
[2021-10-21] MEDS: heparin, porcine 5000 units/ml vial SQ SCH ×2 (08:14→20:10)
[2021-10-21 09:14] LABS: ALBUMIN 2.9 G/DL (3.4-5.0); ANION GAP 11 (8-16); BLOOD UREA NITROGEN 38 MG/DL (7-18); BUN/CREATININE RATIO 41.3 (5.4-32.0); CALCIUM 8.6 MG/DL (8.5-10.1); CHLORIDE 93 MMOL/L (99-107); CREATININE 0.92 MG/DL (0.60-1.10); GLUCOSE 98 MG/DL (70-104); POTASSIUM 5.1 MMOL/L (3.5-5.1); SODIUM 129 MMOL/L (135-145); eGFR 81 ML/MIN
[2021-10-21 11:00] VITALS: BP 107/46
--- NOTE | 2021-10-21 18:33 | NUR ---
all cares given dressing changed to ankle and right hip. medicated for pain x2 with [place] 10mg good effect. worked with PT see note. Report given to Malia KUMAR
[2021-10-21] MEDS: tamsulosin 0.4mg capsule PO SCH (20:09)
[2021-10-21] MEDS: amitriptyline 25mg tablet PO SCH (20:10)
[2021-10-21] MEDS: atorvastatin 20mg tablet PO SCH (20:10)
[2021-10-21] MEDS: polyethylene glycol 3350 17gm powd pack PO SCH (20:10)
[2021-10-21] MEDS: baclofen 10mg tablet PO PRN (20:18)
[2021-10-22] MEDS: HYDROcodone/acetaminophen 10/325mg tab PO PRN ×3 (05:22→17:55)
--- NOTE | 2021-10-22 06:20 | NUR ---
Patient in room [facility]. I have received report from STACY Llanos and had the opportunity to ask questions and assume patient care.
[2021-10-22 06:30] VITALS: BP 105/50
[2021-10-22] MEDS: K and/or MAG REPLACEMENT MC SCH ×2 (07:22→19:12)
[2021-10-22] MEDS: lactose-reduced food (Ensure High Protein) 237ml bottle PO SCH ×3 (07:22→17:56)
[2021-10-22 11:00] VITALS: BP 114/56
[2021-10-22] MEDS: duloxetine 30mg CAPSULE.DR PO SCH (11:40)
[2021-10-22] MEDS: metoprolol tartrate 50mg tablet PO SCH ×2 (11:41→19:49)
[2021-10-22] MEDS: sodium chloride 1gm tablet PO SCH ×3 (11:41→19:50)
[2021-10-22] MEDS: docusate sod 100mg capsule PO SCH ×2 (11:41→19:48)
[2021-10-22] MEDS: aspirin 81mg, enteric-coated 1 TAB TABLET.DR PO SCH (11:41)
[2021-10-22] MEDS: pantoprazole 40mg Tablet.DR PO SCH (11:41)
[2021-10-22] MEDS: magnesium oxide 400mg tablet PO SCH ×2 (11:41→19:50)
[2021-10-22] MEDS: divalproex 250mg tablet, delayed-release PO SCH ×2 (11:42→19:51)
[2021-10-22] MEDS: primidone 50mg tablet PO SCH (11:42)
[2021-10-22] MEDS: tolterodine 2mg SR capsule (24hr) PO SCH (11:42)
[2021-10-22] MEDS: heparin, porcine 5000 units/ml vial SQ SCH ×2 (11:43→19:50)
[2021-10-22 18:30] VITALS: BP 121/50
[2021-10-22] MEDS: tamsulosin 0.4mg capsule PO SCH (19:49)
[2021-10-22] MEDS: polyethylene glycol 3350 17gm powd pack PO SCH (19:49)
[2021-10-22] MEDS: amitriptyline 25mg tablet PO SCH (19:50)
[2021-10-22] MEDS: atorvastatin 20mg tablet PO SCH (19:50)
[2021-10-23] VITALS: BP 161/70
[2021-10-23] MEDS: HYDROcodone/acetaminophen 10/325mg tab PO PRN ×4 (00:15→18:30)
--- NOTE | 2021-10-23 06:07 | NUR ---
Patient in room [facility]. I have received report from rafael KUMAR and had the opportunity to ask questions and assume patient care.
--- NOTE | 2021-10-23 06:20 | NUR ---
Problems reprioritized. Patient report given, questions answered & plan of care reviewed with STACY Goodson.
[2021-10-23 06:37] LABS: MAGNESIUM 1.8 MG/DL (1.5-2.4)
[2021-10-23 07:00] VITALS: BP 131/57
[2021-10-23] MEDS: tolterodine 2mg SR capsule (24hr) PO SCH (07:33)
[2021-10-23] MEDS: sodium chloride 1gm tablet PO SCH ×3 (07:33→20:13)
[2021-10-23] MEDS: duloxetine 30mg CAPSULE.DR PO SCH (07:33)
[2021-10-23] MEDS: divalproex 250mg tablet, delayed-release PO SCH ×2 (07:33→20:16)
[2021-10-23] MEDS: pantoprazole 40mg Tablet.DR PO SCH (07:33)
[2021-10-23] MEDS: aspirin 81mg, enteric-coated 1 TAB TABLET.DR PO SCH (07:34)
[2021-10-23] MEDS: primidone 50mg tablet PO SCH (07:34)
[2021-10-23] MEDS: docusate sod 100mg capsule PO SCH ×2 (07:34→20:14)
[2021-10-23] MEDS: magnesium oxide 400mg tablet PO SCH ×2 (07:34→20:13)
[2021-10-23] MEDS: metoprolol tartrate 50mg tablet PO SCH ×2 (07:35→20:00)
[2021-10-23] MEDS: heparin, porcine 5000 units/ml vial SQ SCH ×2 (07:38→20:14)
[2021-10-23] MEDS: lactose-reduced food (Ensure High Protein) 237ml bottle PO SCH ×3 (08:00→18:12)
[2021-10-23] MEDS: K and/or MAG REPLACEMENT MC SCH ×2 (08:00→20:00)
--- NOTE | 2021-10-23 09:33 | NUR ---
Reassessment: Pt continues on a regular diet and continues eating well with mostly 100% PO intake. Pt also receiving an Ensure High Protein TID of which pt is mostly consuming 100% of. Overall pt exceeding estimated nutrient needs. Communicated w/ RN recommendation to d/c ONS if MD agreeable, alternatively, pt could receive double protein with meals, though he is currently meeting protein needs through meal intake alone. Pt continues with hyponatremia now receiving salt tabs. LBM 10/22 receiving routine bowel care. Will continue to monitor. Recommendations: 1. Continue regular diet in view of no significant cardiac hx, hyponatremia, and lipid panel WNL with the exception of low LDL 2. Ensure High Protein TIDWM per MD/pt request; discontinue given adequate PO intake of meals; 3. Routine bowel care 4. Scaled weight this admit; weekly scaled weights thereafter Addendum: 10/23/21 at [address] Amended: Links added.
[2021-10-23 10:01] LABS: BASOPHILS # (AUTO) 0.1 X10'3 (0-0.2); BASOPHILS % (AUTO) 0.8 % (0-1); EOSINOPHILS # (AUTO) 0.6 X10'3 (0-0.9); EOSINOPHILS % (AUTO) 5.4 % (0-6); HEMATOCRIT 33.3 % (42.0-52.0); HEMOGLOBIN 11.5 g/dl (14.0-17.9); LYMPHOCYTES # (AUTO) 2.4 X10'3 (1.1-4.8); LYMPHOCYTES % (AUTO) 23.4 % (21-51); MEAN CORPUSCULAR HEMOGLOBIN 32.4 PG (27.0-31.0); MEAN CORPUSCULAR HGB CONC 34.6 g/dL (33.0-36.5); MEAN CORPUSCULAR VOLUME 93.5 FL (78-98); MEAN PLATELET VOLUME 7.6 FL (7.4-10.4); MONOCYTES % (AUTO) 9.5 % (2-12); NEUTROPHILS # (AUTO) 6.2 X10'3 (1.8-7.7); NEUTROPHILS % (AUTO) 60.9 % (42-75); PLATELET COUNT 235 X10'3 (140-440); RED BLOOD COUNT 3.57 X10'6 (4.70-6.10); RED CELL DISTRIBUTION WIDTH 14.5 % (11.5-14.5); WHITE BLOOD COUNT 10.2 X10'3 (4.5-11.0)
[2021-10-23 10:04] LABS: ALBUMIN 3.1 G/DL (3.4-5.0); ANION GAP 10 (8-16); BLOOD UREA NITROGEN 36 MG/DL (7-18); BUN/CREATININE RATIO 38.7 (5.4-32.0); CALCIUM 8.6 MG/DL (8.5-10.1); CHLORIDE 96 MMOL/L (99-107); CREATININE 0.93 MG/DL (0.60-1.10); GLUCOSE 89 MG/DL (70-104); POTASSIUM 4.9 MMOL/L (3.5-5.1); SODIUM 132 MMOL/L (135-145); TOTAL CARBON DIOXIDE 26.5 MMOL/L (24-32); eGFR 80 ML/MIN
[2021-10-23 11:36] VITALS: BP 105/49
[2021-10-23] MEDS: ciprofloxacin 0.3% 2.5ml ophthalmic solution RIGHTEYE SCH ×3 (12:15→20:13)
[2021-10-23 19:56] VITALS: BP 98/52
[2021-10-23] MEDS: atorvastatin 20mg tablet PO SCH (20:13)
[2021-10-23] MEDS: tamsulosin 0.4mg capsule PO SCH (20:13)
[2021-10-23] MEDS: amitriptyline 25mg tablet PO SCH (20:15)
[2021-10-23] MEDS: polyethylene glycol 3350 17gm powd pack PO SCH (20:17)
[2021-10-23 22:00] VITALS: BP 92/48
--- NOTE | 2021-10-23 22:46 | NUR ---
patient medicated q6hrly for pain with good effect. dressings to right ankle and right hip pictured and changed. Patient moved to 4013a, orientated to room. VSS. will continue to monitor
[2021-10-24] MEDS: HYDROcodone/acetaminophen 10/325mg tab PO PRN ×4 (00:23→23:51)
[2021-10-24] MEDS: ciprofloxacin 0.3% 2.5ml ophthalmic solution RIGHTEYE SCH ×5 (00:26→16:24)
[2021-10-24 02:38] VITALS: BP 102/49
--- NOTE | 2021-10-24 06:13 | NUR ---
patient given norco for pain x2. Eye drops applied to bi lateral eyes for styes. .patient resting at this time. report given to Kaya KUMAR
[2021-10-24 07:00] VITALS: BP 84/50
[2021-10-24] MEDS: metoprolol tartrate 50mg tablet PO SCH (08:00)
[2021-10-24] MEDS: lactose-reduced food (Ensure High Protein) 237ml bottle PO SCH ×3 (08:00→18:00)
[2021-10-24] MEDS: K and/or MAG REPLACEMENT MC SCH ×2 (08:00→20:00)
[2021-10-24] MEDS: heparin, porcine 5000 units/ml vial SQ SCH ×2 (08:29→20:11)
[2021-10-24] MEDS: sodium chloride 1gm tablet PO SCH ×3 (08:30→20:10)
[2021-10-24] MEDS: pantoprazole 40mg Tablet.DR PO SCH (08:30)
[2021-10-24] MEDS: aspirin 81mg, enteric-coated 1 TAB TABLET.DR PO SCH (08:30)
[2021-10-24] MEDS: duloxetine 30mg CAPSULE.DR PO SCH (08:30)
[2021-10-24] MEDS: primidone 50mg tablet PO SCH (08:30)
[2021-10-24] MEDS: tolterodine 2mg SR capsule (24hr) PO SCH (08:30)
[2021-10-24] MEDS: magnesium oxide 400mg tablet PO SCH ×2 (08:30→20:11)
[2021-10-24] MEDS: divalproex 250mg tablet, delayed-release PO SCH ×2 (08:31→20:09)
[2021-10-24] MEDS: docusate sod 100mg capsule PO SCH ×2 (08:31→20:10)
[2021-10-24 10:19] VITALS: BP 100/56
--- NOTE | 2021-10-24 11:55 | NUR ---
Message: Kaya Dodge [phone] Re: Kevin [id number] blood pressure medications? had a question please call
[2021-10-24 18:00] VITALS: BP 110/57
--- NOTE | 2021-10-24 18:15 | NUR ---
Problems reprioritized. Patient report given, questions answered & plan of care reviewed with STACY Vivar.
--- NOTE | 2021-10-24 18:16 | NUR ---
Problems reprioritized. Patient report given, questions answered & plan of care reviewed with Ghazala KUMAR.
[2021-10-24] MEDS: tamsulosin 0.4mg capsule PO SCH (20:09)
[2021-10-24] MEDS: atorvastatin 20mg tablet PO SCH (20:10)
[2021-10-24] MEDS: amitriptyline 25mg tablet PO SCH (20:10)
[2021-10-24] MEDS: ciprofloxacin 0.3% 2.5ml ophthalmic solution EACHEYE SCH ×2 (20:12→23:51)
[2021-10-24] MEDS: polyethylene glycol 3350 17gm powd pack PO SCH (21:00)
[2021-10-24 22:00] VITALS: BP 118/59
[2021-10-25] MEDS: ciprofloxacin 0.3% 2.5ml ophthalmic solution EACHEYE SCH ×5 (04:32→20:26)
[2021-10-25 06:00] VITALS: BP 104/54
[2021-10-25 06:09] LABS: BASOPHILS # (AUTO) 0.1 X10'3 (0-0.2); BASOPHILS % (AUTO) 0.7 % (0-1); EOSINOPHILS # (AUTO) 0.4 X10'3 (0-0.9); EOSINOPHILS % (AUTO) 5.4 % (0-6); HEMATOCRIT 31.2 % (42.0-52.0); HEMOGLOBIN 10.4 g/dl (14.0-17.9); LYMPHOCYTES # (AUTO) 2.1 X10'3 (1.1-4.8); LYMPHOCYTES % (AUTO) 25.9 % (21-51); MEAN CORPUSCULAR HEMOGLOBIN 30.8 PG (27.0-31.0); MEAN CORPUSCULAR HGB CONC 33.2 g/dL (33.0-36.5); MEAN CORPUSCULAR VOLUME 92.9 FL (78-98); MEAN PLATELET VOLUME 6.8 FL (7.4-10.4); MONOCYTES # (AUTO) 0.8 X10'3 (0-0.9); MONOCYTES % (AUTO) 9.3 % (2-12); NEUTROPHILS # (AUTO) 4.9 X10'3 (1.8-7.7); NEUTROPHILS % (AUTO) 58.7 % (42-75); PLATELET COUNT 225 X10'3 (140-440); RED BLOOD COUNT 3.36 X10'6 (4.70-6.10); RED CELL DISTRIBUTION WIDTH 14.4 % (11.5-14.5); WHITE BLOOD COUNT 8.3 X10'3 (4.5-11.0)
[2021-10-25 06:29] LABS: ANION GAP 7 (8-16); BLOOD UREA NITROGEN 36 MG/DL (7-18); BUN/CREATININE RATIO 34.3 (5.4-32.0); CALCIUM 8.8 MG/DL (8.5-10.1); CHLORIDE 99 MMOL/L (99-107); CREATININE 1.05 MG/DL (0.60-1.10); GLUCOSE 97 MG/DL (70-104); POTASSIUM 4.3 MMOL/L (3.5-5.1); SODIUM 133 MMOL/L (135-145); TOTAL CARBON DIOXIDE 27.2 MMOL/L (24-32); eGFR 70 ML/MIN
--- NOTE | 2021-10-25 06:43 | NUR ---
Received report, assumed care. Pt appears to be asleep, no s/s of complications, rails up x3, call light in reach.
[2021-10-25] MEDS: tolterodine 2mg SR capsule (24hr) PO SCH (07:23)
[2021-10-25] MEDS: docusate sod 100mg capsule PO SCH ×2 (07:24→20:25)
[2021-10-25] MEDS: primidone 50mg tablet PO SCH (07:24)
[2021-10-25] MEDS: sodium chloride 1gm tablet PO SCH ×3 (07:24→20:25)
[2021-10-25] MEDS: aspirin 81mg, enteric-coated 1 TAB TABLET.DR PO SCH (07:24)
[2021-10-25] MEDS: duloxetine 30mg CAPSULE.DR PO SCH (07:24)
[2021-10-25] MEDS: magnesium oxide 400mg tablet PO SCH ×2 (07:24→20:25)
[2021-10-25] MEDS: pantoprazole 40mg Tablet.DR PO SCH (07:24)
[2021-10-25] MEDS: divalproex 250mg tablet, delayed-release PO SCH ×2 (07:24→20:25)
[2021-10-25] MEDS: heparin, porcine 5000 units/ml vial SQ SCH ×2 (07:25→20:25)
[2021-10-25] MEDS: K and/or MAG REPLACEMENT MC SCH ×2 (07:26→20:00)
[2021-10-25] MEDS: metoprolol succinate 25mg (24-HOUR) SR. Tablet PO SCH (07:32)
[2021-10-25] MEDS: lactose-reduced food (Ensure High Protein) 237ml bottle PO SCH ×3 (07:33→18:00)
[2021-10-25] MEDS: HYDROcodone/acetaminophen 10/325mg tab PO PRN ×3 (07:33→20:48)
[2021-10-25 10:00] VITALS: BP 82/51
--- NOTE | 2021-10-25 10:10 | NUR ---
PCT informed me BP was low, I retook BP and found it to be 85/42. Patient asymptomatic. Peter RN sent meto break, I reported the need to notify Dr Garcia. Peter RN reported he notifed Dr Garcia in person as he was rounding at this time. Per Peter Rn Dr Garcia stated we are to encourage patient to drink more water. No mention of change in BP meds. I will monitor throughout shift
--- NOTE | 2021-10-25 12:57 | NUR ---
belongings delivered by family, within bag was a CBD Vape pen I informed patient it is against policy to keep item at bedside, requested he call family member to worm picker. I will hold until they return to pick it up
--- NOTE | 2021-10-25 14:47 | NUR ---
PRESSURE ULCER EDUCATION: DEFINITION: A pressure ulcer is an area of skin that breaks down when you stay in one position too long. The constant pressure against the skin reduces the blood flow to that area and the affected tissue dies. CAUSES: "Being bedridden or in a wheelchair "Fragile skin "Having a chronic condition, such as diabetes or vascular disease "Inability to move certain parts of your body without assistance "Older age "Incontinence of urine or stool SYMPTOMS: "A reddened area that DOES NOT turn white when pressed on - this can be the beginning of a pressure ulcer "A blister, deep sore or a crater - these can be advanced pressure ulcers FIRST AID: "Relieve the pressure on this area "Keep the area clean and dry "Call your primary doctor if you see any of the above symptoms "DO NOT massage the area "DO NOT use a donut shaped or ring shaped pillow- these actually interfere with the blood flow and cause complications PREVENTION: "Check for pressure ulcers everyday "Change position at least every two hours to relieve pressure "Use items that help relieve pressure- pillows, sheepskin, foam padding, and powders. "Keep skin clean and dry "Eat healthy well balanced meals "Exercise daily IF YOU SEE ANY OF THESE SYMPTOMS WHILE IN THE HOSPITAL - TELL YOUR NURSE IMMEDIATELY. IF YOU SEE ANY OF THESE SYMPTOMS WHILE AT HOME OR HAVE ANY QUESTIONS OR CONCERNS ABOUT PRESSURE ULCERS - CALL YOUR PRIMARY DOCTOR IMMEDIATELY. Addendum: 10/25/21 at 1448 by Vicky Chacon LVN Amended: Links added.
--- NOTE | 2021-10-25 14:48 | NUR ---
patient unable to reach family to warp picker vape pen, security with dispose if taken into their custody. Vape pen and 1 cartridge attached an 1 extra with smelter charger placed in bag and labelled with pt sticker. Items added belongings list. Will place in med room 4034 to be returned to patient upon discharge/transfer.
[2021-10-25 18:00] VITALS: BP 99/45
--- NOTE | 2021-10-25 18:19 | NUR ---
Problems reprioritized. Patient report given, questions answered & plan of care reviewed with Ingrid KUMAR.
[2021-10-25] MEDS: tamsulosin 0.4mg capsule PO SCH (20:25)
[2021-10-25] MEDS: atorvastatin 20mg tablet PO SCH (20:25)
[2021-10-25] MEDS: amitriptyline 25mg tablet PO SCH (20:25)
[2021-10-25] MEDS: polyethylene glycol 3350 17gm powd pack PO SCH (21:00)
[2021-10-25 22:00] VITALS: BP 96/34
[2021-10-25] MEDS: baclofen 10mg tablet PO PRN (23:03)
[2021-10-26] MEDS: ciprofloxacin 0.3% 2.5ml ophthalmic solution EACHEYE SCH ×6 (00:28→20:37)
[2021-10-26] MEDS: HYDROcodone/acetaminophen 10/325mg tab PO PRN ×4 (04:30→22:03)
[2021-10-26 06:37] LABS: BASOPHILS # (AUTO) 0.1 X10'3 (0-0.2); BASOPHILS % (AUTO) 0.8 % (0-1); EOSINOPHILS # (AUTO) 0.5 X10'3 (0-0.9); EOSINOPHILS % (AUTO) 6.2 % (0-6); HEMATOCRIT 31.2 % (42.0-52.0); HEMOGLOBIN 10.9 g/dl (14.0-17.9); LYMPHOCYTES # (AUTO) 2.1 X10'3 (1.1-4.8); LYMPHOCYTES % (AUTO) 26.1 % (21-51); MEAN CORPUSCULAR HEMOGLOBIN 32.3 PG (27.0-31.0); MEAN CORPUSCULAR HGB CONC 34.8 g/dL (33.0-36.5); MEAN CORPUSCULAR VOLUME 92.8 FL (78-98); MEAN PLATELET VOLUME 6.9 FL (7.4-10.4); MONOCYTES # (AUTO) 0.7 X10'3 (0-0.9); MONOCYTES % (AUTO) 9.4 % (2-12); NEUTROPHILS # (AUTO) 4.5 X10'3 (1.8-7.7); NEUTROPHILS % (AUTO) 57.5 % (42-75); PLATELET COUNT 211 X10'3 (140-440); RED BLOOD COUNT 3.36 X10'6 (4.70-6.10); RED CELL DISTRIBUTION WIDTH 14.3 % (11.5-14.5); WHITE BLOOD COUNT 7.9 X10'3 (4.5-11.0)
[2021-10-26 06:50] LABS: ALBUMIN 2.9 G/DL (3.4-5.0); ANION GAP 9 (8-16); BLOOD UREA NITROGEN 40 MG/DL (7-18); CALCIUM 8.5 MG/DL (8.5-10.1); CHLORIDE 98 MMOL/L (99-107); CREATININE 0.91 MG/DL (0.60-1.10); GLUCOSE 94 MG/DL (70-104); POTASSIUM 4.7 MMOL/L (3.5-5.1); SODIUM 132 MMOL/L (135-145); eGFR 82 ML/MIN
--- NOTE | 2021-10-26 07:02 | NUR ---
Patient in room [facility]TH[facility] 4013. I have received report from Ghazala RN and had the opportunity to ask questions and assume patient care.
[2021-10-26 07:17] VITALS: BP 87/54
[2021-10-26] MEDS: K and/or MAG REPLACEMENT MC SCH ×2 (08:00→20:00)
[2021-10-26] MEDS: metoprolol succinate 25mg (24-HOUR) SR. Tablet PO SCH (08:00)
[2021-10-26] MEDS: lactose-reduced food (Ensure High Protein) 237ml bottle PO SCH ×3 (08:00→18:00)
[2021-10-26] MEDS: duloxetine 30mg CAPSULE.DR PO SCH (09:32)
[2021-10-26] MEDS: divalproex 250mg tablet, delayed-release PO SCH ×2 (09:33→20:33)
[2021-10-26] MEDS: magnesium oxide 400mg tablet PO SCH ×2 (09:33→20:33)
[2021-10-26] MEDS: tolterodine 2mg SR capsule (24hr) PO SCH (09:34)
[2021-10-26] MEDS: primidone 50mg tablet PO SCH (09:34)
[2021-10-26] MEDS: sodium chloride 1gm tablet PO SCH ×3 (09:34→20:33)
[2021-10-26] MEDS: aspirin 81mg, enteric-coated 1 TAB TABLET.DR PO SCH (09:35)
[2021-10-26] MEDS: pantoprazole 40mg Tablet.DR PO SCH (09:35)
[2021-10-26] MEDS: docusate sod 100mg capsule PO SCH ×2 (09:35→20:33)
[2021-10-26] MEDS: heparin, porcine 5000 units/ml vial SQ SCH ×2 (09:40→20:34)
[2021-10-26 10:00] VITALS: BP 110/54
[2021-10-26 14:00] VITALS: BP 110/52
[2021-10-26] MEDS: baclofen 10mg tablet PO PRN (17:19)
[2021-10-26 18:00] VITALS: BP 131/57
--- NOTE | 2021-10-26 18:30 | NUR ---
Patient in room ORTH[facility] 4013. I have received report from Peter KUMAR and had the opportunity to ask questions and assume patient care.
[2021-10-26] MEDS: atorvastatin 20mg tablet PO SCH (20:33)
[2021-10-26] MEDS: amitriptyline 25mg tablet PO SCH (20:34)
[2021-10-26] MEDS: tamsulosin 0.4mg capsule PO SCH (20:34)
[2021-10-26] MEDS: polyethylene glycol 3350 17gm powd pack PO SCH (20:34)
[2021-10-26 22:00] VITALS: BP 131/62
[2021-10-27] MEDS: ciprofloxacin 0.3% 2.5ml ophthalmic solution EACHEYE SCH ×6 (00:39→20:41)
[2021-10-27 02:00] VITALS: BP 100/43
[2021-10-27] MEDS: HYDROcodone/acetaminophen 10/325mg tab PO PRN ×3 (04:01→17:57)
[2021-10-27 06:00] VITALS: BP 86/48
[2021-10-27 06:16] LABS: BASOPHILS % (AUTO) 0.7 % (0-1); EOSINOPHILS # (AUTO) 0.5 X10'3 (0-0.9); EOSINOPHILS % (AUTO) 7.8 % (0-6); HEMATOCRIT 29.6 % (42.0-52.0); HEMOGLOBIN 9.9 g/dl (14.0-17.9); LYMPHOCYTES # (AUTO) 2.2 X10'3 (1.1-4.8); MEAN CORPUSCULAR HEMOGLOBIN 31.1 PG (27.0-31.0); MEAN CORPUSCULAR HGB CONC 33.5 g/dL (33.0-36.5); MEAN CORPUSCULAR VOLUME 92.8 FL (78-98); MONOCYTES # (AUTO) 0.7 X10'3 (0-0.9); MONOCYTES % (AUTO) 10.1 % (2-12); NEUTROPHILS # (AUTO) 3.2 X10'3 (1.8-7.7); NEUTROPHILS % (AUTO) 48.4 % (42-75); PLATELET COUNT 223 X10'3 (140-440); RED BLOOD COUNT 3.19 X10'6 (4.70-6.10); RED CELL DISTRIBUTION WIDTH 13.8 % (11.5-14.5); WHITE BLOOD COUNT 6.5 X10'3 (4.5-11.0)
[2021-10-27 06:25] LABS: ALBUMIN 2.8 G/DL (3.4-5.0); ANION GAP 6 (8-16); BLOOD UREA NITROGEN 37 MG/DL (7-18); CALCIUM 8.4 MG/DL (8.5-10.1); CHLORIDE 98 MMOL/L (99-107); CREATININE 0.86 MG/DL (0.60-1.10); GLUCOSE 74 MG/DL (70-104); POTASSIUM 4.8 MMOL/L (3.5-5.1); SODIUM 130 MMOL/L (135-145); TOTAL CARBON DIOXIDE 25.8 MMOL/L (24-32); eGFR 88 ML/MIN
--- NOTE | 2021-10-27 06:29 | NUR ---
Problems reprioritized. Patient report given, questions answered & plan of care reviewed with Alli KUMAR.
--- NOTE | 2021-10-27 06:51 | NUR ---
Received report assumed care with Student nurse Maicol. Pt in bed appears to be asleep. Call light in reach, bed low rails up x3
[2021-10-27] MEDS: lactose-reduced food (Ensure High Protein) 237ml bottle PO SCH ×3 (08:00→18:07)
[2021-10-27] MEDS: K and/or MAG REPLACEMENT MC SCH ×2 (08:00→20:00)
[2021-10-27] MEDS: metoprolol succinate 25mg (24-HOUR) SR. Tablet PO SCH (08:00)
[2021-10-27] MEDS: pantoprazole 40mg Tablet.DR PO SCH (08:53)
[2021-10-27] MEDS: magnesium oxide 400mg tablet PO SCH ×2 (08:53→20:39)
[2021-10-27] MEDS: divalproex 250mg tablet, delayed-release PO SCH ×2 (08:54→20:39)
[2021-10-27] MEDS: duloxetine 30mg CAPSULE.DR PO SCH (08:54)
[2021-10-27] MEDS: tolterodine 2mg SR capsule (24hr) PO SCH (08:55)
[2021-10-27] MEDS: aspirin 81mg, enteric-coated 1 TAB TABLET.DR PO SCH (08:56)
[2021-10-27] MEDS: sodium chloride 1gm tablet PO SCH ×3 (08:56→20:43)
[2021-10-27] MEDS: primidone 50mg tablet PO SCH (08:56)
[2021-10-27] MEDS: docusate sod 100mg capsule PO SCH ×2 (08:57→20:40)
[2021-10-27] MEDS: heparin, porcine 5000 units/ml vial SQ SCH ×2 (08:59→20:42)
[2021-10-27 10:00] VITALS: BP 82/51
[2021-10-27] MEDS: baclofen 10mg tablet PO PRN (10:40)
--- NOTE | 2021-10-27 12:11 | NUR ---
I witnessed and agree exceptional student education aide MAICO adminstration of all meds administred under his name were appropriate and necessary
[2021-10-27 14:00] VITALS: BP 103/58
[2021-10-27 18:00] VITALS: BP 112/65
--- NOTE | 2021-10-27 18:05 | NUR ---
Problems reprioritized. Patient report given, questions answered & plan of care reviewed with Yenni milner.
--- NOTE | 2021-10-27 18:30 | NUR ---
Patient in room [facility]TH[facility] 4013. I have received report from Alli KUMAR and had the opportunity to ask questions and assume patient care.
[2021-10-27] MEDS: amitriptyline 25mg tablet PO SCH (20:39)
[2021-10-27] MEDS: tamsulosin 0.4mg capsule PO SCH (20:39)
[2021-10-27] MEDS: atorvastatin 20mg tablet PO SCH (20:39)
[2021-10-27] MEDS: polyethylene glycol 3350 17gm powd pack PO SCH (20:40)
[2021-10-27 22:00] VITALS: BP 114/53
[2021-10-28] MEDS: HYDROcodone/acetaminophen 10/325mg tab PO PRN ×3 (00:02→11:58)
[2021-10-28] MEDS: ciprofloxacin 0.3% 2.5ml ophthalmic solution EACHEYE SCH ×4 (00:03→12:07)
[2021-10-28] MEDS: baclofen 10mg tablet PO PRN (00:09)
[2021-10-28 06:00] VITALS: BP 121/61
--- NOTE | 2021-10-28 06:37 | NUR ---
Problems reprioritized. Patient report given, questions answered & plan of care reviewed with Alli KUMAR.
--- NOTE | 2021-10-28 06:54 | NUR ---
Received report assumed care pt in bed appears to be asleep. call light in reach, bed low rails up x3
[2021-10-28] MEDS: K and/or MAG REPLACEMENT MC SCH (06:58)
[2021-10-28] MEDS: tolterodine 2mg SR capsule (24hr) PO SCH (07:58)
[2021-10-28] MEDS: duloxetine 30mg CAPSULE.DR PO SCH (07:58)
[2021-10-28] MEDS: primidone 50mg tablet PO SCH (07:59)
[2021-10-28] MEDS: magnesium oxide 400mg tablet PO SCH (07:59)
[2021-10-28] MEDS: pantoprazole 40mg Tablet.DR PO SCH (07:59)
[2021-10-28] MEDS: divalproex 250mg tablet, delayed-release PO SCH (07:59)
[2021-10-28] MEDS: lactose-reduced food (Ensure High Protein) 237ml bottle PO SCH ×2 (07:59→13:15)
[2021-10-28] MEDS: docusate sod 100mg capsule PO SCH (07:59)
[2021-10-28] MEDS: aspirin 81mg, enteric-coated 1 TAB TABLET.DR PO SCH (07:59)
[2021-10-28] MEDS: heparin, porcine 5000 units/ml vial SQ SCH (08:00)
[2021-10-28] MEDS: metoprolol succinate 25mg (24-HOUR) SR. Tablet PO SCH (08:00)
[2021-10-28] MEDS: sodium chloride 1gm tablet PO SCH ×2 (08:00→13:00)
[2021-10-28 08:09] LABS: BASOPHILS # (AUTO) 0.1 X10'3 (0-0.2); BASOPHILS % (AUTO) 0.8 % (0-1); EOSINOPHILS # (AUTO) 0.4 X10'3 (0-0.9); EOSINOPHILS % (AUTO) 4.9 % (0-6); HEMATOCRIT 31.3 % (42.0-52.0); HEMOGLOBIN 10.7 g/dl (14.0-17.9); LYMPHOCYTES # (AUTO) 1.9 X10'3 (1.1-4.8); MEAN CORPUSCULAR HEMOGLOBIN 31.4 PG (27.0-31.0); MEAN CORPUSCULAR HGB CONC 34.2 g/dL (33.0-36.5); MEAN CORPUSCULAR VOLUME 91.9 FL (78-98); MEAN PLATELET VOLUME 6.9 FL (7.4-10.4); MONOCYTES # (AUTO) 0.7 X10'3 (0-0.9); MONOCYTES % (AUTO) 8.8 % (2-12); NEUTROPHILS # (AUTO) 4.6 X10'3 (1.8-7.7); NEUTROPHILS % (AUTO) 60.5 % (42-75); PLATELET COUNT 244 X10'3 (140-440); RED CELL DISTRIBUTION WIDTH 13.9 % (11.5-14.5); WHITE BLOOD COUNT 7.6 X10'3 (4.5-11.0)
[2021-10-28 08:20] LABS: ALBUMIN 2.9 G/DL (3.4-5.0); ANION GAP 7 (8-16); BLOOD UREA NITROGEN 33 MG/DL (7-18); BUN/CREATININE RATIO 37.9 (5.4-32.0); CALCIUM 8.5 MG/DL (8.5-10.1); CHLORIDE 95 MMOL/L (99-107); CREATININE 0.87 MG/DL (0.60-1.10); GLUCOSE 93 MG/DL (70-104); POTASSIUM 5.1 MMOL/L (3.5-5.1); SODIUM 128 MMOL/L (135-145); TOTAL CARBON DIOXIDE 26.4 MMOL/L (24-32); eGFR 87 ML/MIN
[2021-10-28 10:00] VITALS: BP 128/61
--- NOTE | 2021-10-28 15:41 | NUR ---
patient discharged while I was lunch
== END 2021-10-28 15:00 | DRG 91 ==
LOC: ER 13:29 → ED HOLD 17:40 → EDBEDREQ 20:41 → MED 3N 22:00 → PCU 3S 09-24 14:42 → SUR 3N 09-29 10:38 → ORTHO 4S 10-23 17:31
PROVIDERS: ADMIT Internal Medicine; ATTEND Internal Medicine
PROC: XW023U6 Introduction of COVID-19 Vaccine into Muscle, Percutaneous Approach, New Technology Group 6 (ICD-10-PCS; principal; 2021-10-17)
DX: G92.9 Unspecified toxic encephalopathy (principal); R53.2 Functional quadriplegia; E87.1 Hypo-osmolality and hyponatremia; T40.605A Adverse effect of unspecified narcotics, initial encounter; E87.6 Hypokalemia; D64.9 Anemia, unspecified; G40.909 Epilepsy, unspecified, not intractable, without status epilepticus; Z20.822 Contact with and (suspected) exposure to COVID-19; W10.8XXA Fall (on) (from) other stairs and steps, initial encounter; G89.29 Other chronic pain; S80.812A Abrasion, left lower leg, initial encounter; H00.013 Hordeolum externum right eye, unspecified eyelid; H00.012 Hordeolum externum right lower eyelid; R32 Unspecified urinary incontinence; R29.6 Repeated falls; M19.90 Unspecified osteoarthritis, unspecified site; N40.0 Benign prostatic hyperplasia without lower urinary tract symptoms; M25.561 Pain in right knee; M25.562 Pain in left knee; Z74.01 Bed confinement status; Z23 Encounter for immunization; Z88.0 Allergy status to penicillin; Y93.89 Activity, other specified; Y92.89 Other specified places as the place of occurrence of the external cause; Y99.8 Other external cause status; Z79.899 Other long term (current) drug therapy; Z79.82 Long term (current) use of aspirin
CPT/HCPCS: 0002A; 36415; 70450; 71045; 73560; 80048; 80053; 80061; 80305; 80320; 81001; 81003; 82140; 83605; 83735; 83880; 84132; 85025; 87040; 87081; 87088; 87635; 91300; 93005; 96361; 96374; 97110; 97112; 97116; 97161; 97530; 97535; 99285; C9803; G0378; J0696; J1160; J1644; J2270; J2310; J3490; J7030

== ENCOUNTER 2022-06-13 14:29 | Emergency (ER) | payer MEDICARE, MEDICAID ==
[~2022-06-13] VITALS: Ht 182.9 cm; Wt 90.9 kg
[~2022-06-13 14:29] MED LIST changes: +ACET-2389 PO; +AMIT25TA9 PO; -ASCO500T20 PO; -CHOL100017 PO; -COLL30OI TOP; +DULO60CA65 PO; -FLO0.4C PO; -FOLI0.4T14 PO; -GABA-530 PO; -IRON150C8 PO; +MELO-102 PO; +METO-384 PO; -METO25TA6 PO; +METO50TA16 PO; -QUET25TA36 PO; -SENN-263 PO; -THIA100T66 PO; -ZINC50TA15 PO
[2022-06-13 15:03] VITALS: BP 127/90
[2022-06-13] MEDS ORDERED: HYDROcodone/acetaminophen 10/325mg tab PO ONE (16:10)
[2022-06-13 16:54] LABS: CLARITY,URINE CLEAR (Clear); COLOR,URINE YELLOW (Yellow); GLUCOSE, URINE NEGATIVE (Neg); KETONES,URINE NEGATIVE (Neg); LEUKOCYTE ESTERASE ,URINE NEGATIVE (Neg); NITRITES, URINE NEGATIVE (Neg); OCCULT BLOOD,URINE NEGATIVE (Neg); PH,URINE 6.5 (4.8-8.0); PROTEIN,URINE NEGATIVE (Neg); UROBILINOGEN,URINE 0.2 E.U/dL (0.2-1.0)
[2022-06-13 16:55] LABS: BASOPHILS # (AUTO) 0.1 X10'3 (0-0.2); BASOPHILS % (AUTO) 0.7 % (0-1); EOSINOPHILS # (AUTO) 0.5 X10'3 (0-0.9); EOSINOPHILS % (AUTO) 6.1 % (0-6); HEMATOCRIT 29.6 % (42.0-52.0); HEMOGLOBIN 10.2 g/dl (14.0-17.9); LYMPHOCYTES # (AUTO) 1.4 X10'3 (1.1-4.8); LYMPHOCYTES % (AUTO) 17.9 % (21-51); MEAN CORPUSCULAR HEMOGLOBIN 29.4 PG (27.0-31.0); MEAN CORPUSCULAR HGB CONC 34.5 g/dL (33.0-36.5); MEAN CORPUSCULAR VOLUME 85.2 FL (78-98); MEAN PLATELET VOLUME 6.7 FL (7.4-10.4); MONOCYTES # (AUTO) 0.8 X10'3 (0-0.9); MONOCYTES % (AUTO) 10.2 % (2-12); NEUTROPHILS # (AUTO) 5.3 X10'3 (1.8-7.7); NEUTROPHILS % (AUTO) 65.1 % (42-75); PLATELET COUNT 237 X10'3 (140-440); RED BLOOD COUNT 3.47 X10'6 (4.70-6.10); RED CELL DISTRIBUTION WIDTH 13.6 % (11.5-14.5); WHITE BLOOD COUNT 8.1 X10'3 (4.5-11.0)
[2022-06-13 16:56] LABS: UA COLLECTION TYPE CLN CATCH MIDSTREAM
[2022-06-13 17:05] LABS: ALANINE AMINOTRANSFERASE 17 U/L (12-78); ALBUMIN 3.2 G/DL (3.4-5.0); ALBUMIN/GLOBULIN RATIO 0.9 (1.1-1.5); ALKALINE PHOSPHATASE 126 IU/L (46-116); ANION GAP 7 (8-16); ASPARTATE AMINO TRANSFERASE 14 U/L (10-37); BILIRUBIN,TOTAL 0.3 MG/DL (0.1-1.0); BLOOD UREA NITROGEN 20 MG/DL (7-18); BUN/CREATININE RATIO 19.2 (5.4-32.0); CALCIUM 8.9 MG/DL (8.5-10.1); CHLORIDE 89 MMOL/L (99-107); CREATININE 1.04 MG/DL (0.60-1.10); GLUCOSE 114 MG/DL (70-104); POTASSIUM 4.8 MMOL/L (3.5-5.1); SODIUM 124 MMOL/L (135-145); TOTAL CARBON DIOXIDE 28.2 MMOL/L (24-32); TOTAL PROTEIN 6.7 G/DL (6.4-8.2); eGFR 70 ML/MIN
[2022-06-13] MEDS ORDERED: ACET325T57 PO (17:05)
[2022-06-13] MEDS ORDERED: ATOR40TA72 PO (17:06)
[2022-06-13] MEDS ORDERED: BACL-11 PO (17:07)
[2022-06-13] MEDS ORDERED: BISA10SU62 RC (17:08)
[2022-06-13] MEDS ORDERED: MENT7.6L2 PO (17:09)
[2022-06-13] MEDS ORDERED: TOLT4CAP28 PO (17:11)
[2022-06-13] MEDS ORDERED: NA P133E4 RC (17:13)
[2022-06-13 17:14] LABS: OSMOLALITY 264 MOSM/K (280-300)
[2022-06-13] MEDS ORDERED: MAGN200T5 PO (17:14)
[2022-06-13] MEDS ORDERED: FURO20TA4 PO (17:14)
[2022-06-13] MEDS ORDERED: MAGN24002 PO (17:16)
[2022-06-13] MEDS ORDERED: HYDR-3972 PO ×2 (17:18→17:19)
[2022-06-13] MEDS ORDERED: POLY119P2 PO (17:18)
[2022-06-13] MEDS ORDERED: SODI100035 PO (17:20)
[2022-06-13] MEDS ORDERED: FLO0.4C PO (17:21)
[2022-06-13] MEDS ORDERED: [UNRECOGNIZED DRUG - CODE] TOP (17:23)
[2022-06-13] MEDS ORDERED: CALC500T11 PO (17:24)
== END 2022-06-13 19:12 | disposition home or self-care (01) ==
LOC: ER 14:29
DX: E87.1 Hypo-osmolality and hyponatremia (principal); I11.0 Hypertensive heart disease with heart failure; I50.9 Heart failure, unspecified; E78.00 Pure hypercholesterolemia, unspecified; E78.5 Hyperlipidemia, unspecified; G89.29 Other chronic pain; F17.200 Nicotine dependence, unspecified, uncomplicated; Z86.69 Personal history of other diseases of the nervous system and sense organs; Z88.0 Allergy status to penicillin; Z79.82 Long term (current) use of aspirin; Z79.899 Other long term (current) drug therapy
CPT/HCPCS: 36415; 80053; 81003; 83930; 85025; 99284

== ENCOUNTER 2022-08-07 09:04 | Outpatient (CLI) | payer MEDICAID, MEDICARE, OTHER ==
[~2022-08-07] VITALS: Ht 182.9 cm; Wt 115.0 kg
[2022-08-07] VITALS (7 sets, daily range): BP systolic 79–111; BP diastolic 44–62
[~2022-08-07 09:04] MED LIST changes: -ACET-2389 PO; +ACET325T57 PO; +ATOR40TA72 PO; +BACL-11 PO; +BISA10SU62 RC; +CALC500T11 PO; +FLO0.4C PO; +FURO20TA4 PO; -HYDR-3964 PO; +HYDR-3972 PO; +MAGN200T5 PO; +MAGN24002 PO; -MELO-102 PO; +MENT7.6L2 PO; -METO50TA16 PO; +NA P133E4 RC; +POLY119P2 PO; -ROSU10TA28 PO; +SODI100035 PO; +TOLT4CAP28 PO; +[UNRECOGNIZED DRUG - CODE] TOP
[2022-08-07] MEDS ORDERED: nitroGLYCERIN 0.4mg SUBLingual tab SL PRN (09:45)
[2022-08-07] MEDS ORDERED: regadenoson 0.4mg/5ml syringe IV ONE (09:45)
[2022-08-07] MEDS ORDERED: atropine 0.1mg/ml 10ml syringe IV PRN (09:45)
[2022-08-07] MEDS ORDERED: aminophylline 250mg/10ml inj. IV PRN (09:45)
== END 2022-08-07 23:59 | disposition home or self-care (01) ==
LOC: RAD 09:04
PROVIDERS: ATTEND Internal Medicine Interventional Cardiology
DX: Z01.810 Encounter for preprocedural cardiovascular examination (principal)
CPT/HCPCS: 78452; 93017; A9500; J2785